=== PATIENT | female | born 1960 | race Caucasian/White ===

== ENCOUNTER 2016-06-10 11:15 | Emergency (ER) | payer OTHER, MEDICAID ==
[2016-04-17 14:51] VITALS: BMI 19.2
[~2016-06-10 11:15] MED LIST: AMBIEN10 MG PO; ASPIRIN325 MG PO; AUGMENTIN 875-11 TAB PO; FERROUS SULFAT325 MG PO; FORTEO PEN20 MCG SQ; HALCION0.25 MG PO; HYDROCODONE-APA1 TAB PO; K-DUR20 MEQ PO; K-TAB10 MEQ PO; LEVAQUIN500 MG PO; MIRALAX17 GM PO; NICODERM C1 PATCH .2 TRANSDERM; NORCO 7.5/325 T1 TA1 PO; OXYCODONE HCL5 MG PO; PRILOSEC20 MG PO; PROTONIX40 MG PO; PROZAC10 MG PO; REMERON15 MG PO; VALIUM10 MG PO; VALIUM5 MG PO; ZANTAC150 MG PO
== END 2016-06-10 14:32 | disposition home or self-care (01) ==
LOC: D.ER 11:15
DX: S80.11XA Contusion of right lower leg, initial encounter (principal); W01.0XXA Fall on same level from slipping, tripping and stumbling without subsequent striking against object, initial encounter; Y93.01 Activity, walking, marching and hiking; Y92.019 Unspecified place in single-family (private) house as the place of occurrence of the external cause; E87.6 Hypokalemia; Z22.322 Carrier or suspected carrier of Methicillin resistant Staphylococcus aureus

== ENCOUNTER 2016-09-07 16:49 | Inpatient (IN) | payer OTHER, MEDICAID ==
[~2016-09-07] VITALS: Ht 162.6 cm; Wt 45.4 kg
[2016-09-07 18:02] LABS: BASOPHILS 0.3 % (0.0-2.0); EOSINOPHILS 1.6 % (0-7); HEMATOCRIT 32.3 % (36.0-48.0); HEMOGLOBIN 10.4 g/dL (12-16); IMMATURE GRANULOCYTES 0.6 % (0-5); LYMPHOCYTES 23.5 % (15-50); MCH 30.6 pg (26.0-34.0); MCHC 32.2 g/dL (31.0-37.0); MEAN PLATELET VOLUME 10.1 fL (7.4-10.4); MONOCYTES 5.4 % (2-11); NEUTROPHILS 68.6 % (40-80); PLATELET COUNT 337 10x3/uL (130-400); RDW 18.2 % (11.5-14.5); WBC 13.2 10x3/uL (4.8-10.8)
[2016-09-07 18:16] LABS: APTT 30.3 SECONDS (22.8-39.4); INR 0.89 (0.85-1.17); PROTIME 11.9 SECONDS (11.6-15.0)
[2016-09-07 18:28] LABS: CARBON DIOXIDE 18.8 mmol/L (21.0-32.0); CHLORIDE - SERUM 109 mmol/L (98-107); CREATININE - SERUM 0.6 mg/dL (0.6-1.3); SODIUM 143 mmol/L (136-145); UREA NITROGEN 4 mg/dL (7-18); eGFR NON AFRICAN AMERICAN > 90 mL/min (90-120)
[2016-09-07 18:38] LABS: CALC OSMOLALITY 279 mosm/kg (275-300); GLUCOSE 69 mg/dL (74-106)
[2016-09-07 18:39] LABS: POTASSIUM - SERUM 2.8 mmol/L (3.5-5.1)
--- NOTE | 2016-09-07 22:24 | NUR ---
ISB FOR PROCEEDURE
--- NOTE | 2016-09-07 22:36 | NUR ---
PRE OP BP 100/70
[2016-09-07 22:44] VITALS: BP 89/64
[2016-09-07 22:45] VITALS: BP 89/64
[2016-09-07 23:00] VITALS: BP 87/55
[2016-09-07 23:15] VITALS: BP 88/52
[2016-09-07 23:30] VITALS: BP 88/52
[2016-09-07 23:35] VITALS: BP 89/64; BMI 17.2
--- NOTE | 2016-09-07 23:35 | NUR ---
ASSESSMENT PER ADMIT PACKET. PATIENT FROM PACU POST OP ORIF LEFT ELBOW FX REPAIN. IV PATENT RT ARM OF LR AT 50CC'S/HR. MONITORING VITAL SIGNS.SR UP X2 CALL LIGHT WITHIN REACH.
[2016-09-08] VITALS (12 sets, daily range): BP systolic 78–113; BP diastolic 50–68; Ht 162.6 cm; Wt 45.4 kg
--- NOTE | 2016-09-08 02:14 | NUR ---
PATIENT IS RESTING COMFORTABLY IN BED. NO DISTRESS NOTED. BP IS RUNNING LOW. IS WANTING SOMETHING FOR PAIN BUT CANNOT KEEP EYES OPEN FOR MORE THAN A MIN BEFORE FALLING BACK TO SLEEP. LAST BP CHECKED WAS 81/55. INTRUCTED TO CALL IF NEEDED ANYTHING. BED LOW, LOCKED, CALL LIGHT IN REACH, ALARM ON.
--- NOTE | 2016-09-08 04:11 | NUR ---
PATIENT STILL RESTING IN BED. BP IS STILL RUNNING 80S/50S, RAISED HER FEET UP TO SEE IF THAT WILL HELP. WILL RECHECK IN 30MINS. BED LOW, LOCKED, CALL LIGHT IN REACH, ALARM ON.
[2016-09-08 04:57] LABS: HEMOGLOBIN 8.9 g/dL (12-16)
--- NOTE | 2016-09-08 05:44 | NUR ---
PATIENT RESTING IN BED COMFORTABLY. BP IS STILL RUNNING LOW. IS WANTING SOMETHING FOR PAIN. TOLD HER I WOULD PASS ON TO THE DAY SHIFT NURSE TO SEE WHAT DOCTOR WANTED TO DO. PATIENT IS STILL VERY SEDATED FROM SURGERY AND CANNOT STAY AWAKE FOR MORE THAN A MIN OR LESS. DENIED FURTHER NEEDS. INTRUCTED TO CALL IF NEEDED ANYTHING.VERBALIZED UNDERSTANDING. BED LOW, LOCKED, CALL LIGHT IN REACH, ALARM ON.
--- NOTE | 2016-09-08 07:37 | NUR ---
CALLED RENAN, NURSE PRACTICTIONER WITH . NOTIFIED HER OF PATIENT'S BP. SHE STATED "GIVE A 500ML BOLUS OF NORMAL SALINE."
[2016-09-08 08:45] LABS: CALCIUM 7.3 mg/dL (8.5-10.1); CARBON DIOXIDE 23.5 mmol/L (21.0-32.0); CHLORIDE - SERUM 110 mmol/L (98-107); CREATININE - SERUM 0.6 mg/dL (0.6-1.3); SODIUM 140 mmol/L (136-145); UREA NITROGEN 3 mg/dL (7-18); eGFR NON AFRICAN AMERICAN > 90 mL/min (90-120)
[2016-09-08 08:53] LABS: CALC OSMOLALITY 276 mosm/kg (275-300); GLUCOSE 122 mg/dL (74-106); POTASSIUM - SERUM 3.5 mmol/L (3.5-5.1)
--- NOTE | 2016-09-08 13:12 | NUR ---
Patient Name: WILLIAM BRYANT Admission Status: ER Accout number: [id number] Admission Date: 09-07-2016 : 1960 Admission Diagnosis: Attending: SULY Current LOS: 1 Anticipated DC Date: 09-10-2016 Planned Disposition: Home with Home Health Primary Insurance: Discharge Planning Comments: CM MET WITH PATIENT REGARDIND D/C NEEDS AND PLANS. PATIENT STATED SHE LIVES ALONE AND HAS NO STEPS OR STAIRS AT HER HOME. PATIENT STATED HER MOTHER (MARILYN) WILL DRIVE HER HOME AT DISCHARGE. PATIENT IS INDEPENDENT WITH HER CARE AND HAS A WALKER, AND CANE AT HOME. PATIENTS PCP IS DR. ROPER AND PHARMACY IS [facility]. PATIENT IS CURRENT WITH [facility] AND HAS AN AIDE 5 DAYS A WEEK FOR 3 HRS. A DAY. CM WILL CONTINUE TO FOLLOW PATIENT WITH D/C NEEDS AND PLANS. PCP DR[facility] [phone] MARILYN ABDI (MOM) [phone] Sas Clinical Programmer: Dorothy Muir Is the patient Alert and Oriented? Yes 0 * How many steps to enter\exit or inside your home? 0 0 * PCP DR. ROPER 0 * Pharmacy [facility] 0 * Preadmission Environment Home Alone 0 * ADLs Independent 0 * Equipment Cane Walker 0 * List name and contact numbers for known caregivers / representatives who currently or will assist patient after discharge: MARILYN ABDI 0 * Community resources currently utilized Other 0 * Please name any agencies selected above. [facility] AIDE/5DAYS/3HRS DAY 0 * Additional services required to return to the preadmission environment? Yes 0 * Can the patient safely return to the preadmission environment? Yes 0 * Has this patient been hospitalized within the prior 30 days at any hospital? No 0 Grand Total: 0
[2016-09-09] VITALS: BP 96/66
[2016-09-09 04:00] VITALS: BP 103/73
[2016-09-09 06:31] LABS: HEMATOCRIT 29.1 % (36.0-48.0); HEMOGLOBIN 9.4 g/dL (12-16)
--- NOTE | 2016-09-09 08:05 | NUR ---
WALKING ROUNDS.ASSESMENT PER FLOW SHEET.PT WITHOUT DISTRESS.SHE IS VERY DROWSY AND CONFUSED THIS AM.SHE ASK ME IF SHE HAS EATEN BREAKFAST YET.PAIN CONTROLLED WITH CORK COMPOUNDER.REPOSITIONED WITH ASSIST OF JESSICA FOR NEEDS
[2016-09-09 08:59] VITALS: BP 121/77
--- NOTE | 2016-09-09 10:32 | NUR ---
SITTING UP IN CHAIR. USING INCENTIVE SPIROMETRY AND ABLE TO GET TO 2000 X 2.
--- NOTE | 2016-09-09 11:22 | NUR ---
STILL UP IN CHAIR PER PT.REMAINS VERY DROWSY.PT REQUEST VALIUM ORDERED,BUT SHE DOES NOT HOLD HER EYES OPEN FOR VERY LONG PERIODS.MONITOR FOR NEEDS
[2016-09-09 13:09] VITALS: BP 102/72
--- NOTE | 2016-09-09 14:48 | NUR ---
WAS STILL EATING LUNCH VERY SLOWLY.STILL SOME WHAT SEDATED.MONITOR FOR NEEDS.
--- NOTE | 2016-09-09 16:08 | NUR ---
HAS BEEN AWAKE FOR A WHILE NOW.WISHES TO HAVE BREAKTHROUGH PAIN MED,BUT AFTER REPOSITIONING SHE DOZES BACK TO SLEEP.MONITOR FOR SIGNS OF DISCOMFORT
[2016-09-09 17:30] VITALS: BP 97/61
[2016-09-09 19:00] VITALS: BP 88/62
--- NOTE | 2016-09-09 19:58 | NUR ---
BROUGHT PATIENT FRESH ICE PER HER REQUEST AND RECHECKED BP. PATIENT DENIES OTHER NEEDS AT THIS TIME. BED IN LOWEST POSITION AND CALL LIGHT WITHIN REACH. ENCOURAGED PATIENT TO CALL IF SHE HAS FURTHER NEEDS.
[2016-09-10 04:00] VITALS: BP 88/62
[2016-09-10 06:23] LABS: HEMATOCRIT 26.4 % (36.0-48.0); HEMOGLOBIN 8.3 g/dL (12-16)
[2016-09-10 08:00] VITALS: BP 92/58
--- NOTE | 2016-09-10 08:00 | NUR ---
PT ASSESSMENT COMPLETE AWAKE AND ALERT SURGICAL DRESSING INTACT TO LEFT ARM HAS LARGE SCALE BRUISING NOTED TO LEFT HIP AND THIGH HAS PAINFUL DORSAL FLEXION NOTED ON ASSESSMENT TO LEFT FOOT WILL ASK PREBOARDER ABOUT XRAY
[2016-09-10 10:49] LABS: BASOPHILS 0 % (0.0-2.0); EOSINOPHILS 0.8 % (0-7); IMMATURE GRANULOCYTES 0.7 % (0-5); MCHC 31.1 g/dL (31.0-37.0); MCV 99.6 fL (80.0-100.0); MEAN PLATELET VOLUME 10.1 fL (7.4-10.4); NEUTROPHILS 51.5 % (40-80); PLATELET COUNT 273 10x3/uL (130-400); RBC 2.68 10x6/uL (4.00-5.40); WBC 8.6 10x3/uL (4.8-10.8)
[2016-09-10 10:59] LABS: ALKALINE PHOSPHATASE 116 U/L (46-116); ALT (SGPT) 15 U/L (10-68); BILIRUBIN - TOTAL 0.17 mg/dL (0.2-1.3); CALC OSMOLALITY 273 mosm/kg (275-300); CALCIUM 7.7 mg/dL (8.5-10.1); CARBON DIOXIDE 25.6 mmol/L (21.0-32.0); CHLORIDE - SERUM 106 mmol/L (98-107); CREATININE - SERUM 0.5 mg/dL (0.6-1.3); GLUCOSE 88 mg/dL (74-106); POTASSIUM - SERUM 3.3 mmol/L (3.5-5.1); PROTEIN - SERUM 5.3 g/dL (6.4-8.2); SODIUM 139 mmol/L (136-145); UREA NITROGEN 4 mg/dL (7-18); eGFR NON AFRICAN AMERICAN > 90 mL/min (90-120)
--- NOTE | 2016-09-10 11:23 | NUR ---
CM REASSESSMENT NOTE: REFERRAL TO [facility] / JORGE FROM [facility] COMING TO EVAL PATIENT TODAY.
[2016-09-10 12:00] VITALS: BP 80/42
--- NOTE | 2016-09-10 14:26 | OP ---
PATIENT NAME: WILLIAM BRYANT MEDICAL RECORD: [id number] :[birth year] LOCATION:D.MS Phillips2226 ADMISSION DATE:09/07/16 SURGEON: FELIPE CAPONE MD DATE OF OPERATION: 09/07/2016 Orthopedic Surgery Operative Note PREOPERATIVE DIAGNOSIS: Comminuted distal humerus supracondylar fracture of the left arm. POSTOPERATIVE DIAGNOSIS: Comminuted distal humerus supracondylar fracture of the left arm. PROCEDURE: Open reduction internal fixation of the left humerus by olecranon osteotomy. SURGEON: Felipe Capone MD. ANESTHESIA: General. INTRAOPERATIVE COMPLICATIONS: None. SUMMARY OF PATHOLOGIC FINDINGS: The patient had a supracondylar fracture with a split on the lateral aspect of the trochlea, requiring 2 column and transcondylar fixation. OPERATIVE SUMMARY IN DETAIL: After obtaining the appropriate preoperative orthopedic surgery consent as well as anesthetic consultation, evaluation and clearance, the patient was brought to the operating room and placed on the operating table in supine position. After general laryngeal mask airway was administered, the patient was placed in a right lateral decubitus position. All pressure points were well padded. She was held firmly to the operating table using the vacuum pack suction system. With the left upper extremity, she was prepped and draped in a routine sterile fashion and draped over the radiolucent elbow holding board. Posterior approach was created from proximal to the olecranon tip to distal olecranon tip. Dissection was carried down. Immediately, the ulnar nerve was identified and protected with a red vessel loop and protected in this manner throughout the entire case. Olecranon osteotomy was performed. The triceps was then reflected back, so the entire distal humerus could be seen. The transcondylar fracture and lateral condyle fracture were provisionally pinned with the cannulated guide pins and then compression cannulated screws were placed across the transcondylar fracture and into the lateral column. This gave good stable rigid fixation of the lateral column and transcondylar portion of the fracture. The medial side was more comminuted and the straight medial based trauma plate from the [employer] system was then affixed and the medial column was fixed. The comminution required additional fixation with lag screw technique. At this point, radiographs were taken and showed good fixation. The olecranon was then reapproximated back across the osteotomy. Using a 4.0 double compression screw, this patient had a very small diaphyseal shaft of the ulna, so I did not feel like a larger 6.5 screw would be appropriate for this person with known osteopenia. After the construction was completed, final radiographs were taken in both AP and lateral planes and submitted for radiographic review. The wound was copiously irrigated. The medial and lateral triceps fascia were closed with #1 Vicryl. This was followed by #1 Vicryl, 2-0 Vicryl and skin ziggy for final closure. Sterile dressings OPERATIVE REPORT [id number] WILLIAM BRYANT were applied. The patient was placed in a posterior splint. She was then awoken, taken to recovery room in stable condition. All final needle and sponge counts were correct. TRANSINT:[id number] Voice Confirmation ID: [id number] DOCUMENT ID: [id number] ESTELITA NG, FELIPE HADDAD at 1426 CC: [id number] DICTATION DATE: 09/10/16910 APPOINTMENT SCHEDULER: 09/10/16 1138 ADM IN [facility] [address] [place] [address]
--- NOTE | 2016-09-10 14:32 | NUR ---
PROVIDED PT WITH ICE PACKS AND CUP OF ICE PER HER REQUEST. INSPECTOR BALANCE BRIDGE IN USE FOR PAIN CONTROL. CALL LIGHT IN REACH. DENIES NEEDS AT THIS TIME. WILL CONTINUE WITH PLAN OF CARE.
--- NOTE | 2016-09-10 14:52 | NUR ---
PT TO DISCHARGE TO [facility] TODAY SURGICAL DRESSING IN PLACE. XRAY OF LEFT IP AND PELVIS DONE DR PEREZ REVIEWED AND AGREES WITH DISCHARGE.
--- NOTE | 2016-09-10 18:12 | NUR ---
PT DISCHARGED TO [facility] AT THIS TIME VIA WHEELCHAIR WITH FACILITY [facility].
== END 2016-09-10 18:13 | DRG 493 ==
LOC: D.ER 16:49 → D.MS 19:15
PROVIDERS: Nurse Practitioner Acute Care; ADMIT Orthopaedic Surgery
PROC: 0PSG04Z Reposition Left Humeral Shaft with Internal Fixation Device, Open Approach (ICD-10-PCS; principal; 2016-09-07 19:07)
DX: S42.412A Displaced simple supracondylar fracture without intercondylar fracture of left humerus, initial encounter for closed fracture (principal); S52.502A Unspecified fracture of the lower end of left radius, initial encounter for closed fracture; S52.612A Displaced fracture of left ulna styloid process, initial encounter for closed fracture; D62 Acute posthemorrhagic anemia; W01.0XXA Fall on same level from slipping, tripping and stumbling without subsequent striking against object, initial encounter; F41.8 Other specified anxiety disorders; I95.9 Hypotension, unspecified; Z86.73 Personal history of transient ischemic attack (TIA), and cerebral infarction without residual deficits; M25.552 Pain in left hip

== ENCOUNTER 2016-09-28 10:16 | Day surgery (SDC) | payer OTHER, MEDICAID ==
[2016-09-28] MEDS ORDERED: PROLIA INJ 660 MG/M1 IJ (11:34)
[2016-09-28 12:51] LABS: HEMATOCRIT 35.2 % (36.0-48.0); HEMOGLOBIN 11.2 g/dL (12-16); MCH 31.2 pg (26.0-34.0); MCHC 31.8 g/dL (31.0-37.0); MCV 98.1 fL (80.0-100.0); MEAN PLATELET VOLUME 10.9 fL (7.4-10.4); RBC 3.59 10x6/uL (4.00-5.40); RDW 14.7 % (11.5-14.5); WBC 7.6 10x3/uL (4.8-10.8)
== END 2016-09-28 18:10 | disposition home or self-care (01) ==
LOC: D.OPS 10:16
PROVIDERS: Anesthesiology
DX: S42.422 Displaced comminuted supracondylar fracture without intercondylar fracture of left humerus (principal); K21.9 Gastro-esophageal reflux disease without esophagitis; Z01.812 Encounter for preprocedural laboratory examination; M87.9 Osteonecrosis, unspecified

== ENCOUNTER 2016-11-02 07:24 | Emergency (ER) | payer OTHER, MEDICAID ==
[2016-09-28 11:29] VITALS: BMI 17.2
[~2016-11-02 07:24] MED LIST changes: +PROLIA INJ 660 MG/M1 IJ
== END 2016-11-02 09:00 | disposition home or self-care (01) ==
LOC: D.ER 07:24
DX: S53.402A Unspecified sprain of left elbow, initial encounter (principal); W06.XXXA Fall from bed, initial encounter; Y93.89 Activity, other specified; Y92.89 Other specified places as the place of occurrence of the external cause; E87.6 Hypokalemia

== ENCOUNTER 2016-11-04 09:10 | Emergency (ER) | payer OTHER, MEDICAID ==
[2016-09-28 11:29] VITALS: BMI 17.2
== END 2016-11-04 09:44 | disposition home or self-care (01) ==
LOC: D.ER 09:10
DX: Z76.0 Encounter for issue of repeat prescription (principal)

== ENCOUNTER 2016-11-14 10:26 | Emergency (ER) | payer OTHER, MEDICAID ==
[2016-09-28 11:29] VITALS: BMI 17.2
[2016-11-18] MEDS ORDERED: FORTEO PEN20 MCG SQ (11:44)
== END 2016-11-14 12:29 | disposition home or self-care (01) ==
LOC: D.ER 10:26
DX: M25.512 Pain in left shoulder (principal); S42.295A Other nondisplaced fracture of upper end of left humerus, initial encounter for closed fracture; W18.39XA Other fall on same level, initial encounter

== ENCOUNTER 2016-11-19 09:51 | Inpatient (IN) | payer OTHER, MEDICAID ==
[~2016-11-19] VITALS: Ht 162.6 cm; Wt 43.1 kg
[2016-11-19 10:44] VITALS: BMI 16.3
[2016-11-19 10:52] LABS: BASOPHILS 0.1 % (0-2); EOSINOPHILS 0.5 % (0-7); HEMATOCRIT 37.8 % (36.0-48.0); HEMOGLOBIN 12.6 g/dL (12-16); IMMATURE GRANULOCYTES 0.4 % (0-5); LYMPHOCYTES 16.5 % (15-50); MCH 29.8 pg (26.0-34.0); MCHC 33.3 g/dL (31.0-37.0); MCV 89.4 fL (80.0-100.0); MEAN PLATELET VOLUME 10.2 fL (7.4-10.4); MONOCYTES 5.7 % (2-11); NEUTROPHILS 76.8 % (40-80); RBC 4.23 10x6/uL (4.00-5.40); RDW 15.1 % (11.5-14.5); WBC 13.5 10x3/uL (4.8-10.8)
[2016-11-19 10:54] LABS: PLATELET COUNT 421 10x3/uL (130-400)
[2016-11-19 11:02] LABS: INR 0.99 (0.85-1.17)
[2016-11-19 11:03] LABS: APTT 31.5 SECONDS (22.8-39.4)
[2016-11-19 11:05] LABS: CALC OSMOLALITY 273 mosm/kg (275-300); CALCIUM 8.4 mg/dL (8.5-10.1); CARBON DIOXIDE 22.6 mmol/L (21.0-32.0); CHLORIDE - SERUM 103 mmol/L (98-107); CREATININE - SERUM 0.6 mg/dL (0.6-1.3); GLUCOSE 109 mg/dL (74-106); SODIUM 138 mmol/L (136-145); UREA NITROGEN 3 mg/dL (7-18); eGFR NON AFRICAN AMERICAN > 90 mL/min (90-120)
[2016-11-19 11:13] LABS: POTASSIUM - SERUM 1.9 mmol/L (3.5-5.1)
[2016-11-19 11:18] LABS: APPEARANCE HAZY (CLEAR); BILIRUBIN NEGATIVE (NEGATIVE); COLOR YELLOW (YELLOW); GLUCOSE NEGATIVE (NEGATIVE); KETONE NEGATIVE (NEGATIVE); LEUKOCYTE ESTERASE TRACE (NEGATIVE); NITRITE NEGATIVE (NEGATIVE); PROTEIN NEGATIVE (NEGATIVE); UROBILINOGEN NORMAL (NORMAL)
[2016-11-19 11:21] LABS: BACTERIA FEW /hpf (NONE SEEN); MUCUS >1+ /lpf (NONE SEEN); RED CELLS - URINE OCC /hpf (0-5); WHITE CELLS - URINE 0-5 /hpf (0-5)
--- NOTE | 2016-11-19 11:21 | NUR ---
ALMA ROSA ERVIN R.N. REPORTED TO GIANNI YOUNGBLOOD POTASSIUM 1.9 ALSO 13.5 WBC AND 421 PLATELETS.
--- NOTE | 2016-11-19 13:03 | NUR ---
1200 PAIN A 5,BETTER. DR. DOCKERY CXD SURGERY AND EXPLAINED TO FAMILY AND PATIENT. WILL TREAT POTASSIUM AND ADMIT.
[2016-11-19 14:38] VITALS: BP 94/61
[2016-11-19 15:30] VITALS: BMI 16.3
--- NOTE | 2016-11-19 17:45 | NUR ---
1230 REPORT TO SHIRA Guerra PROCEDURE CXD DUE TO HYPOKALEMIA AND NEEDS TO LOOK FOR ORDER AND FEED PATIENT,VERBALLY UNDERSTANDS.
[2016-11-19 19:00] VITALS: BP 103/70
[2016-11-20] VITALS: BP 104/70
--- NOTE | 2016-11-20 00:30 | NUR ---
AMBIEN GIVEN FOR SLEEP PER ORDER.
[2016-11-20 04:00] VITALS: BP 117/74
--- NOTE | 2016-11-20 04:41 | NUR ---
PATIENT IN BED WATCHING TV. HOB 50 DEGREES. AAOX4. RR EVEN AND UNLABORED. 0 S/S OF DISTRESS. STATES PAIN IS A 5/10. IV TO RIGHT FA PATENT WITH NO REDNESS OR SWELLING. TELEMETRY ON. SRX2. BED LOW. CALL LIGHT WITHIN REACH.
--- NOTE | 2016-11-20 04:47 | NUR ---
OXY IR GIVEN FOR PAIN. WILL REASSESS.
[2016-11-20 05:37] LABS: BASOPHILS 0.2 % (0-2); HEMATOCRIT 34.6 % (36.0-48.0); HEMOGLOBIN 11.6 g/dL (12-16); IMMATURE GRANULOCYTES 0.2 % (0-5); LYMPHOCYTES 17.3 % (15-50); MCH 29.9 pg (26.0-34.0); MCHC 33.5 g/dL (31.0-37.0); MCV 89.2 fL (80.0-100.0); MONOCYTES 5.4 % (2-11); NEUTROPHILS 75.9 % (40-80); PLATELET COUNT 392 10x3/uL (130-400); RBC 3.88 10x6/uL (4.00-5.40); RDW 15.3 % (11.5-14.5); WBC 12.8 10x3/uL (4.8-10.8)
[2016-11-20 05:45] LABS: CALC OSMOLALITY 274 mosm/kg (275-300); CALCIUM 7.4 mg/dL (8.5-10.1); CARBON DIOXIDE 23.1 mmol/L (21.0-32.0); CHLORIDE - SERUM 103 mmol/L (98-107); CREATININE - SERUM 0.6 mg/dL (0.6-1.3); GLUCOSE 135 mg/dL (74-106); SODIUM 138 mmol/L (136-145); UREA NITROGEN 3 mg/dL (7-18); eGFR NON AFRICAN AMERICAN > 90 mL/min (90-120)
[2016-11-20 05:58] LABS: POTASSIUM - SERUM 2.4 mmol/L (3.5-5.1)
--- NOTE | 2016-11-20 07:30 | NUR ---
SLEEPING, BREATHING EVEN UNLABORED, CALL LIGHT INREACH, BED LOWEST POSTION, WILL CONTINUE TO MONITOR
[2016-11-20 07:36] VITALS: BP 101/68
[2016-11-20 12:09] VITALS: BP 106/72
[2016-11-20 12:16] VITALS: Ht 162.6 cm; Wt 43.1 kg
[2016-11-20 13:56] LABS: BASOPHILS 0.4 % (0-2); EOSINOPHILS 1.6 % (0-7); HEMATOCRIT 40.2 % (36.0-48.0); HEMOGLOBIN 13.1 g/dL (12-16); IMMATURE GRANULOCYTES 0.3 % (0-5); LYMPHOCYTES 32.2 % (15-50); MCH 29.8 pg (26.0-34.0); MCHC 32.6 g/dL (31.0-37.0); MEAN PLATELET VOLUME 10.3 fL (7.4-10.4); NEUTROPHILS 58.5 % (40-80); PLATELET COUNT 401 10x3/uL (130-400); RBC 4.39 10x6/uL (4.00-5.40); RDW 15.5 % (11.5-14.5); WBC 10.9 10x3/uL (4.8-10.8)
[2016-11-20 13:59] LABS: MCV 91.6 fL (80.0-100.0)
[2016-11-20 20:00] VITALS: BP 93/69
[2016-11-21 00:11] VITALS: BP 95/63
[2016-11-21 04:00] VITALS: BP 86/57
[2016-11-21 04:56] LABS: BASOPHILS 0 % (0-2); EOSINOPHILS 0 % (0-7); HEMATOCRIT 33.7 % (36.0-48.0); IMMATURE GRANULOCYTES 0.2 % (0-5); LYMPHOCYTES 6.4 % (15-50); MCH 29.6 pg (26.0-34.0); MCHC 32.6 g/dL (31.0-37.0); MCV 90.8 fL (80.0-100.0); MEAN PLATELET VOLUME 9.9 fL (7.4-10.4); MONOCYTES 3.9 % (2-11); NEUTROPHILS 89.5 % (40-80); PLATELET COUNT 400 10x3/uL (130-400); RBC 3.71 10x6/uL (4.00-5.40); RDW 15.5 % (11.5-14.5)
[2016-11-21 05:14] LABS: ALBUMIN 2.1 g/dL (3.4-5.0); ALKALINE PHOSPHATASE 138 U/L (46-116); ALT (SGPT) 18 U/L (10-68); BILIRUBIN - TOTAL 0.18 mg/dL (0.2-1.3); CALC OSMOLALITY 268 mosm/kg (275-300); CHLORIDE - SERUM 101 mmol/L (98-107); CREATININE - SERUM 0.6 mg/dL (0.6-1.3); GLUCOSE 172 mg/dL (74-106); POTASSIUM - SERUM 3.1 mmol/L (3.5-5.1); PROTEIN - SERUM 5.8 g/dL (6.4-8.2); SODIUM 134 mmol/L (136-145); UREA NITROGEN 3 mg/dL (7-18); eGFR NON AFRICAN AMERICAN > 90 mL/min (90-120)
--- NOTE | 2016-11-21 06:15 | NUR ---
WENT TO HANG IV ANTIBIOTIC AND PT'S RT. AC PERIPHERAL IV SITE WET. IV HAS INFILTRATED. D/C'D IV WITH ANGIOCATH TIP INTACT. PRESSURE HELD AND BANDAID APPLIED. PT. REPORTS SHE DIDN'T WANT RESITED IV AT THIS TIME CAUSE SHE THINKS SHE IS GOING HOME AND MD WOULD PUT HER ON ORAL MEDS TODAY. PT. WANTS TO WAIT UNTIL MD ROUNDS FIRST.
--- NOTE | 2016-11-21 06:46 | NUR ---
PT. IN BED WITH HOB UP FOR COMFORT AND IS WATCHING TV. NO VOICED NEEDS AT THIS TIME. IV INFUSING VIA RT. HAND NS/20KCL AT 100/HR VIA PUMP WITHOUT ALARMS. CALL LIGHT WITHIN REACH.
--- NOTE | 2016-11-21 07:20 | NUR ---
ASSESSMENT COMPLETE. IV TO R HAND PATENT. NS WITH 20 KCL INFUSING AT 100 CC/HR VIA PUMP. SLING IN USE TO L ARM. DRESSING TO L SHOULDER C/D/I. GARAGE DOOR SERVICE TECHNICIAN SHOWING SR 96 PER TECH.
[2016-11-21 08:59] VITALS: BP 102/79
--- NOTE | 2016-11-21 11:15 | NUR ---
COMPLAINING OF OXY IR AND MORPHINE NOT BEING EFFECTIVE FOR PAIN CONTROL. DR CAPONE NOTIFIED. ORDER RECIEVED FOR RUBY DEVELOPER. RUBY DEVELOPER DILAUDID 0.2-10-4 SETUP FOR PAIN CONTROL. FAMILY AT BEDSIDE.
[2016-11-21 13:13] VITALS: BP 116/76
--- NOTE | 2016-11-21 15:00 | NUR ---
NO CHANGES NOTED. CONTINUES TO COMPLAIN OF PAIN. STATES THAT ICEPACK HELPS WITH PAIN. FAMILY AT BEDSIDE.
--- NOTE | 2016-11-21 17:23 | NUR ---
DENIES ANY NEEDS AT PRESENT.
[2016-11-21 17:43] VITALS: BP 106/73
[2016-11-21 20:00] VITALS: BP 97/65
--- NOTE | 2016-11-21 20:52 | NUR ---
REC'D IN BED AWAKE AND ALERT. RESP EVEN AND UNLABORED WITH NO DISTRESS NOTED. CAN EXPRESS NEEDS AND WANTS. PT WAS IN TEARS AT THIS TIME RATING PAIN 10/10 ON PAIN SCALE. BOLUS OF DILAUDID WAS GIVEN ALONG WITH OXY IR PER ORDERS. ASSESSMENT COMPLETED. LEFT SHOULDER IN SLING. WILL CONTINUE TO OBSERVE FOR NEEDS. C/L IN REWACH AT BEDSIDE.
[2016-11-22] VITALS: BP 89/61
[2016-11-22 04:00] VITALS: BP 109/75
--- NOTE | 2016-11-22 04:34 | NUR ---
NATALIO OSULLIVAN AT BEDSIDE. NO VISIBLE SIGNS OF DISTRESS. BED IN LOWEST POSITION AND CALL LIGHT WITHIN REACH.
[2016-11-22 07:13] LABS: BASOPHILS 0.2 % (0-2); EOSINOPHILS 0.5 % (0-7); HEMOGLOBIN 10.9 g/dL (12-16); IMMATURE GRANULOCYTES 0.2 % (0-5); LYMPHOCYTES 28.3 % (15-50); MCH 29.3 pg (26.0-34.0); MCHC 32.1 g/dL (31.0-37.0); MCV 91.4 fL (80.0-100.0); MEAN PLATELET VOLUME 9.8 fL (7.4-10.4); MONOCYTES 9.1 % (2-11); NEUTROPHILS 61.7 % (40-80); PLATELET COUNT 378 10x3/uL (130-400); RBC 3.72 10x6/uL (4.00-5.40); RDW 15.6 % (11.5-14.5); WBC 10.6 10x3/uL (4.8-10.8)
--- NOTE | 2016-11-22 07:20 | NUR ---
ASSESSMENT COMPLETE. IV TO R HAND WITH TENDERNESS. IV REMOVED. CATHETER TIP INTACT. IV SITED TO R FA WITH 22 GAUGE X 1 ATTEMPT. SOFTWARE ENGINEERING SUPERVISOR SHOWING SR 100 PER TECH. DRESSING INTACT TO L ARM. BRUISING AND SWELLING NOTED TO L ARM. L ARM COOL TO TOUCH WITH PULSES PRESENT. INVESTIGATION DIVISION CAPTAIN DILAUDID 0.1-10-4 IN USE FOR PAIN CONTROL.
[2016-11-22 07:27] LABS: ALBUMIN 2.1 g/dL (3.4-5.0); ALKALINE PHOSPHATASE 137 U/L (46-116); ALT (SGPT) 16 U/L (10-68); BILIRUBIN - TOTAL 0.28 mg/dL (0.2-1.3); CALCIUM 7.9 mg/dL (8.5-10.1); CARBON DIOXIDE 26.8 mmol/L (21.0-32.0); CHLORIDE - SERUM 101 mmol/L (98-107); PROTEIN - SERUM 5.7 g/dL (6.4-8.2); SODIUM 135 mmol/L (136-145)
[2016-11-22 07:32] LABS: CALC OSMOLALITY 264 mosm/kg (275-300); CREATININE - SERUM 0.4 mg/dL (0.6-1.3); GLUCOSE 64 mg/dL (74-106); UREA NITROGEN 4 mg/dL (7-18); eGFR NON AFRICAN AMERICAN > 90 mL/min (90-120)
[2016-11-22 09:02] VITALS: BP 105/66
--- NOTE | 2016-11-22 11:00 | NUR ---
NO CHANGES NOTED AT PRESENT.
[2016-11-22 12:44] VITALS: BP 101/70
--- NOTE | 2016-11-22 13:00 | NUR ---
CONTINUES TO COMPLAIN OF PAIN. SLING APPLIED TO L ARM. ICEPACK APPLIED TO L SHOULDER.
[2016-11-22 17:19] VITALS: BP 112/85
--- NOTE | 2016-11-22 18:34 | NUR ---
DENIES ANY NEEDS AT PRESENT.
[2016-11-22 20:00] VITALS: BP 101/62
--- NOTE | 2016-11-22 20:16 | NUR ---
PATIENT RESTING IN BED WITH NO VISIBLE SIGNS OF DISTRESS. ADMINISTERED TORADOL PER ORDERS AND REFILLED PATIENT'S ICE PACKS. PATIENT DENIES OTHER NEEDS AT THIS TIME. BED IN LOWEST POSITION AND CALL LIGHT WITHIN REACH. ENCOURAGED THE PATIENT TO CALL IF SHE HAS FURTHER NEEDS.
[2016-11-23] VITALS: BP 92/42
[2016-11-23 04:00] VITALS: BP 102/53
[2016-11-23 06:42] LABS: BASOPHILS 0.2 % (0-2); EOSINOPHILS 1.9 % (0-7); HEMATOCRIT 31.4 % (36.0-48.0); IMMATURE GRANULOCYTES 0.4 % (0-5); LYMPHOCYTES 25.9 % (15-50); MCH 29.2 pg (26.0-34.0); MCHC 31.8 g/dL (31.0-37.0); MCV 91.5 fL (80.0-100.0); MEAN PLATELET VOLUME 9.6 fL (7.4-10.4); MONOCYTES 8.3 % (2-11); NEUTROPHILS 63.3 % (40-80); PLATELET COUNT 356 10x3/uL (130-400); RBC 3.43 10x6/uL (4.00-5.40); RDW 15.7 % (11.5-14.5); WBC 8.3 10x3/uL (4.8-10.8)
[2016-11-23 07:04] LABS: ALBUMIN 1.9 g/dL (3.4-5.0); ALKALINE PHOSPHATASE 135 U/L (46-116); ALT (SGPT) 15 U/L (10-68); BILIRUBIN - TOTAL 0.21 mg/dL (0.2-1.3); CALC OSMOLALITY 264 mosm/kg (275-300); CALCIUM 7.5 mg/dL (8.5-10.1); CARBON DIOXIDE 25.5 mmol/L (21.0-32.0); CHLORIDE - SERUM 100 mmol/L (98-107); CREATININE - SERUM 0.4 mg/dL (0.6-1.3); GLUCOSE 89 mg/dL (74-106); POTASSIUM - SERUM 4.2 mmol/L (3.5-5.1); PROTEIN - SERUM 5.5 g/dL (6.4-8.2); SODIUM 134 mmol/L (136-145); UREA NITROGEN 6 mg/dL (7-18); eGFR NON AFRICAN AMERICAN > 90 mL/min (90-120)
--- NOTE | 2016-11-23 07:30 | NUR ---
RECIEVED PT DURING WALKING ROUNDS. PT SITTING UP IN BED WITH COMPLAINTS OF PAIN OF A 10 ON A SCALE OF 1-10. MEDICATION TO BE GIVEN PER ORDER. ASSESSMENT DONE PER FLOWSHEET. BED IN LOW POSITION AND CALL LIGHT WITHIN REACH. WILL CONTINUE TO MONITOR.
[2016-11-23 08:26] VITALS: BP 99/52
[2016-11-23] MEDS ORDERED: OXYCODONE HCL5 MG PO (12:19)
[2016-11-23] MEDS ORDERED: OxyCONTIN PO (12:20)
[2016-11-23 12:26] VITALS: BP 103/53
--- NOTE | 2016-11-23 12:44 | NUR ---
Patient Name: WILLIAM BRYANT Admission Status: Elective Accout number: [id number] Admission Date: 11-19-2016 : 1960 Admission Diagnosis:HYPOKALEMIA Attending: SULY Current LOS: 4 Anticipated DC Date: 11-23-2016 Planned Disposition: Home with Home Health Primary Insurance: [employer] Discharge Planning Comments: CM MET WITH PATIENT AND MOM (MARILYN) REGARDING D/C NEEDS AND PLANS. PATIENT STATED SHE WILL GO HOME WITH HER MOM AT DISCHARGE FOR A DAY. PATIENTS MOTHER IS DRIVING HER. PATIENT STATED SHE HAS CARE GIVERS 7 DAYS A WEEK FOR 4 HOURS A DAY. PATIENT IS CURRENT WITH [facility]. PATIENT IS INDEPENDENT WITH HER CARE AND HAS A ROLATOR WALKER, AND SHOWER CHAIR AT HOME. PATIENTS PCP IS DR. ROPER AND PHARMACY IS [facility]. CM WILL CONTINUE TO FOLLOW PATIENT WITH D/C NEEDS AND PLANS. PCP DR[facility]- [phone] MARILYN (MOM) [phone] Life Science Taxonomist: Dorothy Muir Is the patient Alert and Oriented? Yes 0 * How many steps to enter\exit or inside your home? 0 0 * PCP DR. ROPER 0 * Pharmacy [facility] 0 * Preadmission Environment Home Alone 0 * ADLs Independent 0 * Equipment Rolling Walker Shower Chair 0 * List name and contact numbers for known caregivers / representatives who currently or will assist patient after discharge: MARILYN (MOM) [phone] 0 * Additional services required to return to the preadmission environment? Yes 0 * Can the patient safely return to the preadmission environment? Yes 0 * Has this patient been hospitalized within the prior 30 days at any hospital? No 0 Grand Total: 0
--- NOTE | 2016-11-23 12:50 | NUR ---
CM REASSESSMENT NOTE: JEFF IS DISCHARGING HOME TODAY W/HER MOTHER DRIVING HER. PATIENT HAS A ROLATOR WALKER AND SHOWER CHAIR AT HOME. PATIENT WILL HAVE [facility] (RESUMPTION OF CARE) W/PT. WILLEM AWARE OF DISCHARGE.
--- NOTE | 2016-11-23 14:53 | NUR ---
DRESSING CHANGED TO LEFT SHOULDER AT THIS TIME. IV REMOVED AND DISCHARGE INSTRUCTIONS GIVEN. PT DISCHARGED VIA WHEELCHAIR TO HOME WITH A FAMILY MEMBER.
== END 2016-11-23 15:03 | disposition home health service (06) | DRG 982 ==
LOC: D.MS 09:51 → D.OPS 09:51 → D.PAN 12:30 → D.MS 14:36 → D.OPS 14:37 → D.MS 11-23 15:03
PROVIDERS: Anesthesiology; Family Medicine Adult Medicine; ADMIT Orthopaedic Surgery
PROC: 0RRK0J6 Replacement of Left Shoulder Joint with Synthetic Substitute, Humeral Surface, Open Approach (ICD-10-PCS; principal; 2016-11-20 13:00)
DX: E87.6 Hypokalemia (principal); N39.0 Urinary tract infection, site not specified; K59.00 Constipation, unspecified; F41.8 Other specified anxiety disorders; G89.29 Other chronic pain; Z86.73 Personal history of transient ischemic attack (TIA), and cerebral infarction without residual deficits; F17.200 Nicotine dependence, unspecified, uncomplicated; M19.012 Primary osteoarthritis, left shoulder; S42.402D Unspecified fracture of lower end of left humerus, subsequent encounter for fracture with routine healing; X58.XXXD Exposure to other specified factors, subsequent encounter; I95.9 Hypotension, unspecified

== ENCOUNTER 2017-01-16 07:15 | Emergency (ER) | payer OTHER, MEDICAID ==
[2016-11-20 12:16] VITALS: BMI 16.3
[~2017-01-16 07:15] MED LIST changes: +OxyCONTIN PO
== END 2017-01-16 08:37 | disposition home or self-care (01) ==
LOC: D.ER 07:15
DX: S29.9XXA Unspecified injury of thorax, initial encounter (principal); W19.XXXA Unspecified fall, initial encounter; Y93.89 Activity, other specified; Y92.89 Other specified places as the place of occurrence of the external cause; S59.902A Unspecified injury of left elbow, initial encounter; S49.92XA Unspecified injury of left shoulder and upper arm, initial encounter

== ENCOUNTER 2017-01-25 04:17 | Emergency (ER) | payer OTHER, MEDICAID ==
[2016-11-20 12:16] VITALS: BMI 16.3
== END 2017-01-25 06:25 | disposition home or self-care (01) ==
LOC: D.ER 04:17
DX: S20.212A Contusion of left front wall of thorax, initial encounter (principal); W19.XXXA Unspecified fall, initial encounter; Y93.89 Activity, other specified; Y92.89 Other specified places as the place of occurrence of the external cause

== ENCOUNTER 2017-06-01 06:20 | Emergency (ER) | payer OTHER, MEDICAID ==
[2016-11-20 12:16] VITALS: BMI 16.3
== END 2017-06-01 07:38 | disposition home or self-care (01) ==
LOC: D.ER 06:20
DX: S40.012A Contusion of left shoulder, initial encounter (principal); S40.022A Contusion of left upper arm, initial encounter; S70.02XA Contusion of left hip, initial encounter; W19.XXXA Unspecified fall, initial encounter; Y93.89 Activity, other specified; Y92.019 Unspecified place in single-family (private) house as the place of occurrence of the external cause

== ENCOUNTER 2017-07-31 22:48 | Inpatient (IN) | payer OTHER, MEDICAID ==
[~2017-07-31] VITALS: Ht 162.6 cm; Wt 51.8 kg
[2017-07-31 23:31] LABS: BASOPHILS 0.2 % (0-2); EOSINOPHILS 0.6 % (0-7); HEMOGLOBIN 14.6 g/dL (12-16); IMMATURE GRANULOCYTES 0.4 % (0-5); LYMPHOCYTES 10.5 % (15-50); MCH 31.6 pg (26.0-34.0); MCV 93.1 fL (80.0-100.0); MEAN PLATELET VOLUME 9.7 fL (7.4-10.4); MONOCYTES 6.1 % (2-11); NEUTROPHILS 82.2 % (40-80); RBC 4.62 10x6/uL (4.00-5.40); RDW 16.2 % (11.5-14.5); WBC 16.2 10x3/uL (4.8-10.8)
[2017-07-31 23:33] LABS: PLATELET COUNT 430 10x3/uL (130-400)
[2017-07-31 23:48] LABS: INR 0.99 (0.85-1.17); PROTIME 12.7 SECONDS (11.6-15.0)
[2017-07-31 23:49] LABS: APTT 30.7 SECONDS (22.8-39.4)
[2017-07-31 23:50] LABS: D-DIMER-QUANTITATIVE 0.29 ug/mLFEU (0.20-0.54)
[2017-07-31 23:59] LABS: ALBUMIN 3.2 g/dL (3.4-5.0); ALKALINE PHOSPHATASE 197 U/L (46-116); ALT (SGPT) 36 U/L (10-68); AMYLASE - SERUM 150 U/L (25-115); CALC OSMOLALITY 262 mosm/kg (275-300); CALCIUM 8.1 mg/dL (8.5-10.1); CHLORIDE - SERUM 98 mmol/L (98-107); CKMB 1.4 U/L (0.0-3.6); CREATINE KINASE 34 UL (21-215); CREATININE - SERUM 0.6 mg/dL (0.6-1.3); GLUCOSE 118 mg/dL (74-106); PROTEIN - SERUM 7.1 g/dL (6.4-8.2); SODIUM 133 mmol/L (136-145); TROPONIN-I < 0.017 ng/mL (0.000-0.060); UREA NITROGEN 2 mg/dL (7-18); eGFR NON AFRICAN AMERICAN > 90 mL/min (90-120)
[2017-08-01 00:01] LABS: LIPASE 1 U/L (73-393); POTASSIUM - SERUM 2.4 mmol/L (3.5-5.1); PRO BNP 1 pg/mL (0-125)
[2017-08-01 04:00] VITALS: BP 121/86
[2017-08-01] MEDS ORDERED: AMBIEN10 MG PO (04:57)
[2017-08-01] MEDS ORDERED: VALIUM10 MG PO (04:57)
[2017-08-01] MEDS ORDERED: HYDROCODONE-APA1 TAB PO (04:59)
[2017-08-01 05:09] VITALS: BMI 18.0
[2017-08-01 06:56] LABS: BASOPHILS 0.3 % (0-2); EOSINOPHILS 0.8 % (0-7); HEMATOCRIT 39.4 % (36.0-48.0); HEMOGLOBIN 13.2 g/dL (12-16); IMMATURE GRANULOCYTES 0.3 % (0-5); LYMPHOCYTES 34.6 % (15-50); MCH 31.4 pg (26.0-34.0); MCHC 33.5 g/dL (31.0-37.0); MCV 93.8 fL (80.0-100.0); MEAN PLATELET VOLUME 9.6 fL (7.4-10.4); MONOCYTES 8.5 % (2-11); NEUTROPHILS 55.5 % (40-80); PLATELET COUNT 439 10x3/uL (130-400); RDW 16.3 % (11.5-14.5)
[2017-08-01 07:17] LABS: ALBUMIN 2.7 g/dL (3.4-5.0); ALKALINE PHOSPHATASE 179 U/L (46-116); ALT (SGPT) 32 U/L (10-68); BILIRUBIN - TOTAL 0.28 mg/dL (0.2-1.3); CHLORIDE - SERUM 106 mmol/L (98-107); CREATININE - SERUM 0.7 mg/dL (0.6-1.3); PHOSPHOROUS 3.5 mg/dL (2.5-4.9); PROTEIN - SERUM 6.5 g/dL (6.4-8.2); SODIUM 142 mmol/L (136-145); eGFR NON AFRICAN AMERICAN > 90 mL/min (90-120)
[2017-08-01 07:18] LABS: CALC OSMOLALITY 276 mosm/kg (275-300); GLUCOSE 54 mg/dL (74-106); UREA NITROGEN 1 mg/dL (7-18)
[2017-08-01 07:19] LABS: POTASSIUM - SERUM 2.9 mmol/L (3.5-5.1)
[2017-08-01 07:28] LABS: CKMB 1.2 U/L (0.0-3.6); CREATINE KINASE 20 UL (21-215)
[2017-08-01 07:29] LABS: TROPONIN-I < 0.017 ng/mL (0.000-0.060)
[2017-08-01 08:24] VITALS: BP 112/81
[2017-08-01 11:36] VITALS: BP 115/84
[2017-08-01 12:45] LABS: CKMB 1.2 U/L (0.0-3.6); CREATINE KINASE 17 UL (21-215)
[2017-08-01 12:48] LABS: TROPONIN-I < 0.017 ng/mL (0.000-0.060)
[2017-08-01 15:41] VITALS: BP 112/80
[2017-08-01 19:45] LABS: CKMB 1.1 U/L (0.0-3.6); CREATINE KINASE 24 UL (21-215); POTASSIUM - SERUM 3.1 mmol/L (3.5-5.1); TROPONIN-I < 0.017 ng/mL (0.000-0.060)
[2017-08-01 20:00] VITALS: BP 118/66
[2017-08-02] VITALS: BP 120/64
[2017-08-02 04:00] VITALS: BP 124/62
[2017-08-02 05:40] LABS: BASOPHILS 0.3 % (0-2); EOSINOPHILS 1.5 % (0-7); HEMATOCRIT 34.8 % (36.0-48.0); HEMOGLOBIN 11.3 g/dL (12-16); IMMATURE GRANULOCYTES 0.2 % (0-5); LYMPHOCYTES 27.5 % (15-50); MCH 31.4 pg (26.0-34.0); MCHC 32.5 g/dL (31.0-37.0); MCV 96.7 fL (80.0-100.0); MEAN PLATELET VOLUME 9.5 fL (7.4-10.4); MONOCYTES 7.8 % (2-11); NEUTROPHILS 62.7 % (40-80); PLATELET COUNT 380 10x3/uL (130-400); WBC 12.8 10x3/uL (4.8-10.8)
[2017-08-02 05:57] LABS: ALBUMIN 2.3 g/dL (3.4-5.0); ALKALINE PHOSPHATASE 147 U/L (46-116); ALT (SGPT) 32 U/L (10-68); CALC OSMOLALITY 276 mosm/kg (275-300); CALCIUM 7.3 mg/dL (8.5-10.1); CARBON DIOXIDE 28.1 mmol/L (21.0-32.0); CHLORIDE - SERUM 105 mmol/L (98-107); CREATININE - SERUM 0.6 mg/dL (0.6-1.3); GLUCOSE 72 mg/dL (74-106); POTASSIUM - SERUM 2.6 mmol/L (3.5-5.1); PROTEIN - SERUM 5.6 g/dL (6.4-8.2); SODIUM 141 mmol/L (136-145); UREA NITROGEN 4 mg/dL (7-18); eGFR NON AFRICAN AMERICAN > 90 mL/min (90-120)
[2017-08-02 07:48] VITALS: BP 138/78
[2017-08-02 10:38] VITALS: BP 132/75
[2017-08-02 13:25] VITALS: Ht 162.6 cm; Wt 51.8 kg
[2017-08-02 14:56] VITALS: BP 136/71
[2017-08-02 17:02] LABS: APPEARANCE CLEAR (CLEAR); BILIRUBIN NEGATIVE (NEGATIVE); COLOR YELLOW (YELLOW); GLUCOSE NEGATIVE (NEGATIVE); KETONE NEGATIVE (NEGATIVE); NITRITE NEGATIVE (NEGATIVE); PROTEIN NEGATIVE (NEGATIVE); UROBILINOGEN NORMAL (NORMAL)
[2017-08-02 20:00] VITALS: BP 92/65
[2017-08-03 04:00] VITALS: BP 106/67
[2017-08-03 05:47] LABS: BASOPHILS 0.2 % (0-2); EOSINOPHILS 3.2 % (0-7); HEMATOCRIT 35.8 % (36.0-48.0); HEMOGLOBIN 11.3 g/dL (12-16); IMMATURE GRANULOCYTES 0.4 % (0-5); LYMPHOCYTES 43.1 % (15-50); MCHC 31.6 g/dL (31.0-37.0); MCV 98.4 fL (80.0-100.0); MEAN PLATELET VOLUME 9.9 fL (7.4-10.4); MONOCYTES 6.2 % (2-11); NEUTROPHILS 46.9 % (40-80); PLATELET COUNT 396 10x3/uL (130-400); RBC 3.64 10x6/uL (4.00-5.40); RDW 17.5 % (11.5-14.5); WBC 9.6 10x3/uL (4.8-10.8)
[2017-08-03 06:06] LABS: ALBUMIN 2.2 g/dL (3.4-5.0); ALKALINE PHOSPHATASE 147 U/L (46-116); ALT (SGPT) 24 U/L (10-68); BILIRUBIN - TOTAL 0.12 mg/dL (0.2-1.3); CALC OSMOLALITY 275 mosm/kg (275-300); CALCIUM 8.3 mg/dL (8.5-10.1); CARBON DIOXIDE 33.5 mmol/L (21.0-32.0); CHLORIDE - SERUM 103 mmol/L (98-107); CREATININE - SERUM 0.5 mg/dL (0.6-1.3); GLUCOSE 93 mg/dL (74-106); POTASSIUM - SERUM 4.3 mmol/L (3.5-5.1); PROTEIN - SERUM 5.6 g/dL (6.4-8.2); SODIUM 140 mmol/L (136-145); THYROID STIMULATING HORMONE 1.03 uIU/mL (0.36-3.74); UREA NITROGEN 5 mg/dL (7-18); eGFR NON AFRICAN AMERICAN > 90 mL/min (90-120)
[2017-08-03 08:06] VITALS: BP 106/67
[2017-08-03 11:14] VITALS: BP 103/71
[2017-08-03 14:56] VITALS: BP 118/66
[2017-08-03 20:00] VITALS: BP 98/61
[2017-08-04] VITALS: BP 95/66
[2017-08-04 04:00] VITALS: BP 94/70
[2017-08-04 05:39] LABS: BASOPHILS 0.4 % (0-2); EOSINOPHILS 4.2 % (0-7); HEMATOCRIT 35.2 % (36.0-48.0); HEMOGLOBIN 11.4 g/dL (12-16); IMMATURE GRANULOCYTES 0.5 % (0-5); LYMPHOCYTES 34.7 % (15-50); MCH 31.1 pg (26.0-34.0); MCHC 32.4 g/dL (31.0-37.0); MEAN PLATELET VOLUME 9.5 fL (7.4-10.4); MONOCYTES 8.2 % (2-11); PLATELET COUNT 379 10x3/uL (130-400); RBC 3.67 10x6/uL (4.00-5.40); RDW 17.4 % (11.5-14.5); WBC 8.1 10x3/uL (4.8-10.8)
[2017-08-04 05:41] LABS: MCV 95.9 fL (80.0-100.0)
[2017-08-04 06:09] LABS: ALBUMIN 2.2 g/dL (3.4-5.0); ALKALINE PHOSPHATASE 130 U/L (46-116); ALT (SGPT) 21 U/L (10-68); BILIRUBIN - TOTAL 0.13 mg/dL (0.2-1.3); CALC OSMOLALITY 273 mosm/kg (275-300); CALCIUM 8.2 mg/dL (8.5-10.1); CARBON DIOXIDE 34.4 mmol/L (21.0-32.0); CHLORIDE - SERUM 99 mmol/L (98-107); CREATININE - SERUM 0.6 mg/dL (0.6-1.3); GLUCOSE 131 mg/dL (74-106); POTASSIUM - SERUM 4.7 mmol/L (3.5-5.1); PROTEIN - SERUM 5.5 g/dL (6.4-8.2); SODIUM 137 mmol/L (136-145); eGFR NON AFRICAN AMERICAN > 90 mL/min (90-120)
[2017-08-04 06:10] LABS: UREA NITROGEN 7 mg/dL (7-18)
[2017-08-04 08:04] VITALS: BP 95/67
[2017-08-04 11:04] VITALS: BP 105/64
[2017-08-04 14:39] VITALS: BP 110/68
== END 2017-08-04 15:29 | disposition home or self-care (01) | DRG 543 ==
LOC: D.ER 22:48 → OBSVTIME 08-01 03:28 → D.M2 08-01 03:28
PROVIDERS: Emergency Medicine; Family Medicine; Internal Medicine Nephrology
DX: M80.80XA Other osteoporosis with current pathological fracture, unspecified site, initial encounter for fracture (principal); E44.0 Moderate protein-calorie malnutrition; Z68.1 Body mass index [BMI] 19.9 or less, adult; M87.859 Other osteonecrosis, unspecified femur; Z87.310 Personal history of (healed) osteoporosis fracture; M84.48XA Pathological fracture, other site, initial encounter for fracture; E87.6 Hypokalemia; D64.9 Anemia, unspecified

== ENCOUNTER 2017-08-21 14:08 | Emergency (ER) | payer OTHER, MEDICAID ==
[2017-08-02 13:25] VITALS: BMI 18.8
[2017-08-21 14:53] LABS: APPEARANCE CLEAR (CLEAR); BILIRUBIN NEGATIVE (NEGATIVE); COLOR STRAW (YELLOW); GLUCOSE NEGATIVE (NEGATIVE); KETONE NEGATIVE (NEGATIVE); NITRITE NEGATIVE (NEGATIVE); PROTEIN TRACE mg/dL (NEGATIVE); UROBILINOGEN NORMAL (NORMAL)
[2017-08-21 14:54] LABS: BACTERIA FEW /hpf (NONE SEEN); RED CELLS - URINE 0-5 /hpf (0-5)
[2017-08-21 14:59] LABS: BASOPHILS 0.5 % (0-2); EOSINOPHILS 1.4 % (0-7); HEMATOCRIT 42.8 % (36.0-48.0); HEMOGLOBIN 14.5 g/dL (12-16); IMMATURE GRANULOCYTES 0.4 % (0-5); LYMPHOCYTES 20.7 % (15-50); MCH 32.2 pg (26.0-34.0); MCHC 33.9 g/dL (31.0-37.0); MCV 94.9 fL (80.0-100.0); MONOCYTES 5.7 % (2-11); NEUTROPHILS 71.3 % (40-80); RBC 4.51 10x6/uL (4.00-5.40); RDW 16.3 % (11.5-14.5); WBC 14.7 10x3/uL (4.8-10.8)
[2017-08-21 15:02] LABS: PLATELET COUNT 516 10x3/uL (130-400)
[2017-08-21 15:03] LABS: ALBUMIN 3.3 g/dL (3.4-5.0); ALKALINE PHOSPHATASE 197 U/L (46-116); ALT (SGPT) 20 U/L (10-68); BILIRUBIN - TOTAL 0.33 mg/dL (0.2-1.3); CALC OSMOLALITY 264 mosm/kg (275-300); CALCIUM 8.7 mg/dL (8.5-10.1); CARBON DIOXIDE 19.7 mmol/L (21.0-32.0); CHLORIDE - SERUM 100 mmol/L (98-107); CREATININE - SERUM 0.8 mg/dL (0.6-1.3); GLUCOSE 103 mg/dL (74-106); PROTEIN - SERUM 7.7 g/dL (6.4-8.2); SODIUM 134 mmol/L (136-145); UREA NITROGEN 3 mg/dL (7-18); eGFR NON AFRICAN AMERICAN 78 mL/min (90-120)
[2017-08-21 15:06] LABS: POTASSIUM - SERUM 2.4 mmol/L (3.5-5.1)
== END 2017-08-21 16:50 | disposition home or self-care (01) ==
LOC: D.ER 14:08
PROVIDERS: Family Medicine
DX: R53.1 Weakness (principal); E87.6 Hypokalemia; I44.4 Left anterior fascicular block; F17.200 Nicotine dependence, unspecified, uncomplicated

== ENCOUNTER 2017-08-28 14:15 | Inpatient (IN) | payer OTHER, MEDICAID ==
[~2017-08-28] VITALS: Ht 162.6 cm; Wt 58.4 kg
[2017-08-28 14:53] LABS: BASOPHILS 0.3 % (0-2); EOSINOPHILS 0.6 % (0-7); HEMATOCRIT 42.2 % (36.0-48.0); HEMOGLOBIN 15.4 g/dL (12-16); IMMATURE GRANULOCYTES 0.7 % (0-5); MCH 32.6 pg (26.0-34.0); MCHC 36.5 g/dL (31.0-37.0); MCV 89.2 fL (80.0-100.0); NEUTROPHILS 69.4 % (40-80); PLATELET COUNT 480 10x3/uL (130-400); RBC 4.73 10x6/uL (4.00-5.40); RDW 15.2 % (11.5-14.5); WBC 13.7 10x3/uL (4.8-10.8)
[2017-08-28 15:17] LABS: ALBUMIN 3.3 g/dL (3.4-5.0); ALKALINE PHOSPHATASE 176 U/L (46-116); ALT (SGPT) 29 U/L (10-68); BILIRUBIN - TOTAL 0.37 mg/dL (0.2-1.3); CALC OSMOLALITY 254 mosm/kg (275-300); CALCIUM 8.4 mg/dL (8.5-10.1); CARBON DIOXIDE 26.5 mmol/L (21.0-32.0); CHLORIDE - SERUM 90 mmol/L (98-107); CREATININE - SERUM 0.8 mg/dL (0.6-1.3); GLUCOSE 116 mg/dL (74-106); LIPASE 242 U/L (73-393); PRO BNP 271 pg/mL (0-125); PROTEIN - SERUM 7.5 g/dL (6.4-8.2); SODIUM 128 mmol/L (136-145); UREA NITROGEN 3 mg/dL (7-18); eGFR NON AFRICAN AMERICAN 78 mL/min (90-120)
[2017-08-28 15:28] LABS: POTASSIUM - SERUM 1.5 mmol/L (3.5-5.1); TROPONIN-I < 0.017 ng/mL (0.000-0.060)
[2017-08-28 17:35] LABS: ALBUMIN 3.4 g/dL (3.4-5.0); ALKALINE PHOSPHATASE 178 U/L (46-116); ALT (SGPT) 27 U/L (10-68); BILIRUBIN - TOTAL 0.41 mg/dL (0.2-1.3); CALC OSMOLALITY 250 mosm/kg (275-300); CALCIUM 8.6 mg/dL (8.5-10.1); CARBON DIOXIDE 24.4 mmol/L (21.0-32.0); CHLORIDE - SERUM 90 mmol/L (98-107); CREATININE - SERUM 0.8 mg/dL (0.6-1.3); GLUCOSE 120 mg/dL (74-106); MAGNESIUM - SERUM 2.3 mg/dL (1.8-2.4); PROTEIN - SERUM 7.5 g/dL (6.4-8.2); SODIUM 126 mmol/L (136-145); UREA NITROGEN 3 mg/dL (7-18); eGFR NON AFRICAN AMERICAN 78 mL/min (90-120)
[2017-08-28 17:36] LABS: POTASSIUM - SERUM 1.4 mmol/L (3.5-5.1)
[2017-08-28 19:43] LABS: MAGNESIUM - SERUM 2.1 mg/dL (1.8-2.4); THYROID STIMULATING HORMONE 1.16 uIU/mL (0.36-3.74)
[2017-08-28 20:31] LABS: T4 THYROXINE 12.2 ug/dL (4.7-13.3)
[2017-08-29] VITALS (7 sets, daily range): BP systolic 92–117; BP diastolic 60–81; Ht 162.6 cm; Wt 58.4 kg
[2017-08-29 08:40] LABS: MAGNESIUM - SERUM 2.1 mg/dL (1.8-2.4)
[2017-08-29 08:46] LABS: PHOSPHOROUS 1.5 mg/dL (2.5-4.9)
[2017-08-29 10:36] LABS: CREATININE - URINE 34.3 mg/dL (30-125); POTASSIUM - URINE 20.1 MMOL/L (12.0-62.0)
[2017-08-29 10:40] LABS: APPEARANCE CLEAR (CLEAR); BILIRUBIN NEGATIVE (NEGATIVE); COLOR YELLOW (YELLOW); GLUCOSE NEGATIVE (NEGATIVE); KETONE NEGATIVE (NEGATIVE); NITRITE NEGATIVE (NEGATIVE); PROTEIN TRACE mg/dL (NEGATIVE); UROBILINOGEN NORMAL (NORMAL)
[2017-08-29 10:42] LABS: BACTERIA FEW /hpf (NONE SEEN); RED CELLS - URINE 0-5 /hpf (0-5); WHITE CELLS - URINE 0-5 /hpf (0-5)
[2017-08-29 14:52] LABS: ALKALINE PHOSPHATASE 141 U/L (46-116); BILIRUBIN - TOTAL 0.17 mg/dL (0.2-1.3); CALCIUM 7.4 mg/dL (8.5-10.1); CARBON DIOXIDE 23.7 mmol/L (21.0-32.0); CHLORIDE - SERUM 105 mmol/L (98-107); CREATININE - SERUM 0.7 mg/dL (0.6-1.3); GLUCOSE 119 mg/dL (74-106); SODIUM 139 mmol/L (136-145); eGFR NON AFRICAN AMERICAN > 90 mL/min (90-120)
[2017-08-29 14:55] LABS: CALC OSMOLALITY 275 mosm/kg (275-300); UREA NITROGEN 5 mg/dL (7-18)
[2017-08-29 14:56] LABS: ALT (SGPT) 18 U/L (10-68); POTASSIUM - SERUM 2.7 mmol/L (3.5-5.1); PROTEIN - SERUM 5.4 g/dL (6.4-8.2)
[2017-08-29 14:57] LABS: ALBUMIN 2.4 g/dL (3.4-5.0)
[2017-08-30] VITALS (8 sets, daily range): BP systolic 81–99; BP diastolic 47–63
[2017-08-30 05:29] LABS: BASOPHILS 0.3 % (0-2); EOSINOPHILS 1.8 % (0-7); HEMATOCRIT 34.2 % (36.0-48.0); HEMOGLOBIN 11.5 g/dL (12-16); IMMATURE GRANULOCYTES 0.6 % (0-5); LYMPHOCYTES 31.7 % (15-50); MCH 31.8 pg (26.0-34.0); MCHC 33.6 g/dL (31.0-37.0); MCV 94.5 fL (80.0-100.0); MEAN PLATELET VOLUME 10.2 fL (7.4-10.4); MONOCYTES 6.9 % (2-11); NEUTROPHILS 58.7 % (40-80); PLATELET COUNT 400 10x3/uL (130-400); RBC 3.62 10x6/uL (4.00-5.40); WBC 9.8 10x3/uL (4.8-10.8)
[2017-08-30 05:45] LABS: ALBUMIN 2.4 g/dL (3.4-5.0); ALKALINE PHOSPHATASE 118 U/L (46-116); ALT (SGPT) 15 U/L (10-68); CALC OSMOLALITY 278 mosm/kg (275-300); CALCIUM 7.6 mg/dL (8.5-10.1); CARBON DIOXIDE 24.5 mmol/L (21.0-32.0); CHLORIDE - SERUM 107 mmol/L (98-107); CREATININE - SERUM 0.7 mg/dL (0.6-1.3); GLUCOSE 110 mg/dL (74-106); PROTEIN - SERUM 5.4 g/dL (6.4-8.2); SODIUM 141 mmol/L (136-145); UREA NITROGEN 5 mg/dL (7-18); eGFR NON AFRICAN AMERICAN > 90 mL/min (90-120)
[2017-08-30 05:46] LABS: POTASSIUM - SERUM 3.3 mmol/L (3.5-5.1)
[2017-08-31] VITALS (7 sets, daily range): BP systolic 84–102; BP diastolic 56–68
[2017-08-31 05:50] LABS: BASOPHILS 0.3 % (0-2); EOSINOPHILS 2.3 % (0-7); HEMATOCRIT 32.4 % (36.0-48.0); HEMOGLOBIN 10.7 g/dL (12-16); IMMATURE GRANULOCYTES 0.7 % (0-5); MCH 31.8 pg (26.0-34.0); MCV 96.1 fL (80.0-100.0); MEAN PLATELET VOLUME 9.7 fL (7.4-10.4); MONOCYTES 5.8 % (2-11); NEUTROPHILS 66.9 % (40-80); PLATELET COUNT 386 10x3/uL (130-400); RBC 3.37 10x6/uL (4.00-5.40)
[2017-08-31 05:52] LABS: WBC 14.4 10x3/uL (4.8-10.8)
[2017-08-31 06:14] LABS: ALBUMIN 2.1 g/dL (3.4-5.0); ALKALINE PHOSPHATASE 112 U/L (46-116); ALT (SGPT) 13 U/L (10-68); CALCIUM 7.5 mg/dL (8.5-10.1); CARBON DIOXIDE 22.2 mmol/L (21.0-32.0); CHLORIDE - SERUM 108 mmol/L (98-107); CREATININE - SERUM 0.6 mg/dL (0.6-1.3); GLUCOSE 73 mg/dL (74-106); MAGNESIUM - SERUM 1.3 mg/dL (1.8-2.4); PHOSPHOROUS 2.4 mg/dL (2.5-4.9); PROTEIN - SERUM 4.9 g/dL (6.4-8.2); SODIUM 138 mmol/L (136-145); eGFR NON AFRICAN AMERICAN > 90 mL/min (90-120)
[2017-08-31 06:15] LABS: CALC OSMOLALITY 273 mosm/kg (275-300); POTASSIUM - SERUM 3.9 mmol/L (3.5-5.1); UREA NITROGEN 9 mg/dL (7-18)
[2017-09-01 06:18] LABS: BASOPHILS 0.2 % (0-2); EOSINOPHILS 3.5 % (0-7); HEMATOCRIT 32.3 % (36.0-48.0); HEMOGLOBIN 10.7 g/dL (12-16); IMMATURE GRANULOCYTES 1.9 % (0-5); LYMPHOCYTES 24.4 % (15-50); MCH 31.8 pg (26.0-34.0); MCHC 33.1 g/dL (31.0-37.0); MCV 96.1 fL (80.0-100.0); MEAN PLATELET VOLUME 10.3 fL (7.4-10.4); MONOCYTES 8.4 % (2-11); NEUTROPHILS 61.6 % (40-80); PLATELET COUNT 315 10x3/uL (130-400); RBC 3.36 10x6/uL (4.00-5.40); WBC 13.6 10x3/uL (4.8-10.8)
[2017-09-01 06:34] VITALS: BP 85/56
[2017-09-01 06:38] LABS: ALBUMIN 2.2 g/dL (3.4-5.0); ALKALINE PHOSPHATASE 117 U/L (46-116); ALT (SGPT) 13 U/L (10-68); CALCIUM 7.5 mg/dL (8.5-10.1); CHLORIDE - SERUM 106 mmol/L (98-107); CREATININE - SERUM 0.5 mg/dL (0.6-1.3); PROTEIN - SERUM 5.1 g/dL (6.4-8.2); SODIUM 138 mmol/L (136-145); UREA NITROGEN 7 mg/dL (7-18); eGFR NON AFRICAN AMERICAN > 90 mL/min (90-120)
[2017-09-01 06:44] LABS: CALC OSMOLALITY 274 mosm/kg (275-300); GLUCOSE 112 mg/dL (74-106)
[2017-09-01] MEDS ORDERED: NEUTRA-PHOS PAC1 PK1 PO (10:02)
[2017-09-01] MEDS ORDERED: PROTONIX40 MG PO (10:02)
[2017-09-01] MEDS ORDERED: MAG-OX 400 MG400 MG PO (10:02)
[2017-09-01] MEDS ORDERED: K-DUR20 MEQ PO (10:03)
== END 2017-09-01 17:28 | disposition home or self-care (01) | DRG 641 ==
LOC: D.ER 14:15 → D.EDHOLD 17:14 → D.M2 17:14 → OBSVTIME 17:15 → D.M2 17:43
PROVIDERS: Family Medicine; Internal Medicine Nephrology
DX: E87.6 Hypokalemia (principal); E44.0 Moderate protein-calorie malnutrition; E87.1 Hypo-osmolality and hyponatremia; F41.9 Anxiety disorder, unspecified; F32.9 Major depressive disorder, single episode, unspecified; M81.0 Age-related osteoporosis without current pathological fracture; I95.9 Hypotension, unspecified; G89.29 Other chronic pain; Z86.73 Personal history of transient ischemic attack (TIA), and cerebral infarction without residual deficits

== ENCOUNTER 2017-09-11 04:52 | Emergency (ER) | payer OTHER, MEDICAID ==
[~2017-09-11 04:52] MED LIST changes: +MAG-OX 400 MG400 MG PO; +NEUTRA-PHOS PAC1 PK1 PO
[2017-09-11 05:16] LABS: BASOPHILS 0.6 % (0-2); EOSINOPHILS 2.5 % (0-7); HEMATOCRIT 35.3 % (36.0-48.0); HEMOGLOBIN 11.3 g/dL (12-16); IMMATURE GRANULOCYTES 0.8 % (0-5); LYMPHOCYTES 20.7 % (15-50); MCH 31.9 pg (26.0-34.0); MCV 99.7 fL (80.0-100.0); MEAN PLATELET VOLUME 9.5 fL (7.4-10.4); MONOCYTES 4.8 % (2-11); NEUTROPHILS 70.6 % (40-80); PLATELET COUNT 449 10x3/uL (130-400); RBC 3.54 10x6/uL (4.00-5.40); RDW 16.5 % (11.5-14.5); WBC 10.5 10x3/uL (4.8-10.8)
[2017-09-11 05:39] LABS: ALBUMIN 2.7 g/dL (3.4-5.0); ALKALINE PHOSPHATASE 240 U/L (46-116); ALT (SGPT) 23 U/L (10-68); BILIRUBIN - TOTAL 0.45 mg/dL (0.2-1.3); CALC OSMOLALITY 281 mosm/kg (275-300); CALCIUM 8.1 mg/dL (8.5-10.1); CARBON DIOXIDE 17.1 mmol/L (21.0-32.0); CHLORIDE - SERUM 112 mmol/L (98-107); CREATININE - SERUM 0.7 mg/dL (0.6-1.3); GLUCOSE 74 mg/dL (74-106); PHOSPHOROUS 2.9 mg/dL (2.5-4.9); POTASSIUM - SERUM 3.2 mmol/L (3.5-5.1); PROTEIN - SERUM 6.8 g/dL (6.4-8.2); SODIUM 144 mmol/L (136-145); UREA NITROGEN 2 mg/dL (7-18); eGFR NON AFRICAN AMERICAN > 90 mL/min (90-120)
== END 2017-09-11 06:08 | disposition home or self-care (01) ==
LOC: D.ER 04:52
PROVIDERS: Emergency Medicine
DX: E87.6 Hypokalemia (principal); W19.XXXA Unspecified fall, initial encounter; Y93.89 Activity, other specified; Y92.019 Unspecified place in single-family (private) house as the place of occurrence of the external cause

== ENCOUNTER 2017-09-14 16:18 | Emergency (ER) | payer OTHER, MEDICAID ==
[2017-09-14 16:40] LABS: BASOPHILS 0.6 % (0-2); EOSINOPHILS 1.2 % (0-7); HEMATOCRIT 41.8 % (36.0-48.0); HEMOGLOBIN 13.5 g/dL (12-16); IMMATURE GRANULOCYTES 0.9 % (0-5); LYMPHOCYTES 21.6 % (15-50); MCH 32.1 pg (26.0-34.0); MCHC 32.3 g/dL (31.0-37.0); MCV 99.3 fL (80.0-100.0); MEAN PLATELET VOLUME 9.9 fL (7.4-10.4); MONOCYTES 5.8 % (2-11); NEUTROPHILS 69.9 % (40-80); PLATELET COUNT 497 10x3/uL (130-400); RBC 4.21 10x6/uL (4.00-5.40); RDW 15.7 % (11.5-14.5); WBC 11.5 10x3/uL (4.8-10.8)
[2017-09-14 17:04] LABS: ALBUMIN 3.2 g/dL (3.4-5.0); ALKALINE PHOSPHATASE 255 U/L (46-116); ALT (SGPT) 17 U/L (10-68); BILIRUBIN - TOTAL 0.27 mg/dL (0.2-1.3); CALC OSMOLALITY 271 mosm/kg (275-300); CALCIUM 8.4 mg/dL (8.5-10.1); CHLORIDE - SERUM 106 mmol/L (98-107); CREATININE - SERUM 0.8 mg/dL (0.6-1.3); GLUCOSE 71 mg/dL (74-106); POTASSIUM - SERUM 3.5 mmol/L (3.5-5.1); PROTEIN - SERUM 7.7 g/dL (6.4-8.2); SODIUM 139 mmol/L (136-145); UREA NITROGEN 2 mg/dL (7-18); eGFR NON AFRICAN AMERICAN 78 mL/min (90-120)
== END 2017-09-14 18:30 | disposition home or self-care (01) ==
LOC: D.ER 16:18
PROVIDERS: Emergency Medicine
DX: S22.42XA Multiple fractures of ribs, left side, initial encounter for closed fracture (principal); W19.XXXA Unspecified fall, initial encounter; Y93.89 Activity, other specified; Y92.019 Unspecified place in single-family (private) house as the place of occurrence of the external cause; M25.552 Pain in left hip; F17.200 Nicotine dependence, unspecified, uncomplicated

== ENCOUNTER 2017-09-24 09:05 | Inpatient (IN) | payer OTHER, MEDICAID ==
[~2017-09-24] VITALS: Ht 162.6 cm; Wt 60.5 kg
[2017-09-24 09:32] LABS: APPEARANCE CLEAR (CLEAR); BILIRUBIN NEGATIVE (NEGATIVE); COLOR YELLOW (YELLOW); GLUCOSE NEGATIVE (NEGATIVE); KETONE NEGATIVE (NEGATIVE); NITRITE NEGATIVE (NEGATIVE); PROTEIN NEGATIVE (NEGATIVE); UROBILINOGEN NORMAL (NORMAL)
[2017-09-24 10:13] LABS: BASOPHILS 0.3 % (0-2); EOSINOPHILS 1.5 % (0-7); HEMATOCRIT 34.6 % (36.0-48.0); IMMATURE GRANULOCYTES 0.5 % (0-5); LYMPHOCYTES 27.7 % (15-50); MCH 31.9 pg (26.0-34.0); MCHC 34.7 g/dL (31.0-37.0); MEAN PLATELET VOLUME 10.5 fL (7.4-10.4); MONOCYTES 9.5 % (2-11); NEUTROPHILS 60.5 % (40-80); PLATELET COUNT 400 10x3/uL (130-400); RBC 3.76 10x6/uL (4.00-5.40); RDW 14.8 % (11.5-14.5); WBC 10.7 10x3/uL (4.8-10.8)
[2017-09-24 10:31] LABS: ALBUMIN 2.6 g/dL (3.4-5.0); ALKALINE PHOSPHATASE 155 U/L (46-116); ALT (SGPT) 22 U/L (10-68); AMYLASE - SERUM 260 U/L (25-115); CALCIUM 7.9 mg/dL (8.5-10.1); CARBON DIOXIDE 27.7 mmol/L (21.0-32.0); CHLORIDE - SERUM 104 mmol/L (98-107); CREATININE - SERUM 0.6 mg/dL (0.6-1.3); LIPASE 517 U/L (73-393); PROTEIN - SERUM 5.7 g/dL (6.4-8.2); SODIUM 141 mmol/L (136-145); UREA NITROGEN 4 mg/dL (7-18); eGFR NON AFRICAN AMERICAN > 90 mL/min (90-120)
[2017-09-24 10:35] LABS: CALC OSMOLALITY 278 mosm/kg (275-300); GLUCOSE 114 mg/dL (74-106); POTASSIUM - SERUM 2.1 mmol/L (3.5-5.1)
[2017-09-24 14:14] VITALS: BP 114/78
[2017-09-24 14:31] VITALS: BP 114/78; BMI 19.5
[2017-09-24 19:53] VITALS: BP 98/60
[2017-09-25] VITALS: BP 90/56; BP 92/55
[2017-09-25 02:14] LABS: BASOPHILS 0.4 % (0-2); EOSINOPHILS 3.8 % (0-7); HEMATOCRIT 32.1 % (36.0-48.0); HEMOGLOBIN 10.8 g/dL (12-16); IMMATURE GRANULOCYTES 0.3 % (0-5); LYMPHOCYTES 40.1 % (15-50); MCH 31.5 pg (26.0-34.0); MCHC 33.6 g/dL (31.0-37.0); MCV 93.6 fL (80.0-100.0); MEAN PLATELET VOLUME 9.8 fL (7.4-10.4); MONOCYTES 7.8 % (2-11); NEUTROPHILS 47.6 % (40-80); PLATELET COUNT 363 10x3/uL (130-400); RBC 3.43 10x6/uL (4.00-5.40); RDW 15.2 % (11.5-14.5); WBC 10.4 10x3/uL (4.8-10.8)
[2017-09-25 02:28] LABS: ALBUMIN 2.3 g/dL (3.4-5.0); ALKALINE PHOSPHATASE 140 U/L (46-116); ALT (SGPT) 18 U/L (10-68); CALC OSMOLALITY 277 mosm/kg (275-300); CALCIUM 7.6 mg/dL (8.5-10.1); CARBON DIOXIDE 31.7 mmol/L (21.0-32.0); CHLORIDE - SERUM 106 mmol/L (98-107); CREATININE - SERUM 0.7 mg/dL (0.6-1.3); GLUCOSE 100 mg/dL (74-106); MAGNESIUM - SERUM 1.6 mg/dL (1.8-2.4); PHOSPHOROUS 2.2 mg/dL (2.5-4.9); PROTEIN - SERUM 5.4 g/dL (6.4-8.2); SODIUM 141 mmol/L (136-145); UREA NITROGEN 5 mg/dL (7-18); eGFR NON AFRICAN AMERICAN > 90 mL/min (90-120)
[2017-09-25 02:29] LABS: POTASSIUM - SERUM 2.2 mmol/L (3.5-5.1)
[2017-09-25 04:00] VITALS: BP 92/55
[2017-09-25 08:17] VITALS: BP 104/66; BP 80/52
[2017-09-25 10:55] VITALS: Ht 162.6 cm; Wt 60.5 kg
[2017-09-25 11:10] LABS: ALBUMIN 2.5 g/dL (3.4-5.0); ALKALINE PHOSPHATASE 141 U/L (46-116); ALT (SGPT) 15 U/L (10-68); BILIRUBIN - TOTAL 0.14 mg/dL (0.2-1.3); CALC OSMOLALITY 275 mosm/kg (275-300); CALCIUM 7.9 mg/dL (8.5-10.1); CARBON DIOXIDE 29.4 mmol/L (21.0-32.0); CHLORIDE - SERUM 103 mmol/L (98-107); GLUCOSE 107 mg/dL (74-106); PROTEIN - SERUM 5.8 g/dL (6.4-8.2); SODIUM 139 mmol/L (136-145); UREA NITROGEN 6 mg/dL (7-18)
[2017-09-25 11:12] LABS: CREATININE - SERUM 0.5 mg/dL (0.6-1.3); eGFR NON AFRICAN AMERICAN > 90 mL/min (90-120)
[2017-09-25 11:15] LABS: POTASSIUM - SERUM 2.3 mmol/L (3.5-5.1)
[2017-09-25 11:52] VITALS: BP 99/69
[2017-09-25 20:00] VITALS: BP 98/64
[2017-09-26] VITALS: BP 86/57
[2017-09-26 04:00] VITALS: BP 93/63
[2017-09-26 05:07] LABS: BASOPHILS 0.3 % (0-2); EOSINOPHILS 2.5 % (0-7); HEMATOCRIT 32.1 % (36.0-48.0); HEMOGLOBIN 10.6 g/dL (12-16); IMMATURE GRANULOCYTES 0.5 % (0-5); LYMPHOCYTES 34.1 % (15-50); MCH 31.5 pg (26.0-34.0); MCV 95.5 fL (80.0-100.0); MEAN PLATELET VOLUME 10.4 fL (7.4-10.4); MONOCYTES 9.3 % (2-11); NEUTROPHILS 53.3 % (40-80); PLATELET COUNT 379 10x3/uL (130-400); RBC 3.36 10x6/uL (4.00-5.40)
[2017-09-26 06:32] LABS: ALBUMIN 2.2 g/dL (3.4-5.0); ALKALINE PHOSPHATASE 123 U/L (46-116); ALT (SGPT) 19 U/L (10-68); BILIRUBIN - TOTAL 0.11 mg/dL (0.2-1.3); CALC OSMOLALITY 277 mosm/kg (275-300); CALCIUM 7.2 mg/dL (8.5-10.1); CARBON DIOXIDE 25.2 mmol/L (21.0-32.0); CHLORIDE - SERUM 107 mmol/L (98-107); CREATININE - SERUM 0.5 mg/dL (0.6-1.3); MAGNESIUM - SERUM 1.6 mg/dL (1.8-2.4); PHOSPHOROUS 2.3 mg/dL (2.5-4.9); PROTEIN - SERUM 5.4 g/dL (6.4-8.2); SODIUM 142 mmol/L (136-145); UREA NITROGEN 5 mg/dL (7-18); eGFR NON AFRICAN AMERICAN > 90 mL/min (90-120)
[2017-09-26 06:36] LABS: GLUCOSE 66 mg/dL (74-106); POTASSIUM - SERUM 2.4 mmol/L (3.5-5.1)
[2017-09-26 09:07] VITALS: BP 101/72
[2017-09-26 13:26] VITALS: BP 96/65
[2017-09-26 15:29] LABS: MAGNESIUM - SERUM 1.7 mg/dL (1.8-2.4)
[2017-09-26 15:33] LABS: PHOSPHOROUS 3.6 mg/dL (2.5-4.9)
[2017-09-26 15:35] LABS: POTASSIUM - SERUM 2.8 mmol/L (3.5-5.1)
[2017-09-26 16:19] VITALS: BP 102/63
[2017-09-26 20:00] VITALS: BP 100/63
[2017-09-27] VITALS: BP 81/49
[2017-09-27 04:00] VITALS: BP 112/72
[2017-09-27 06:04] LABS: BASOPHILS 0.4 % (0-2); EOSINOPHILS 1.9 % (0-7); HEMATOCRIT 32.9 % (36.0-48.0); HEMOGLOBIN 10.7 g/dL (12-16); MCH 31.8 pg (26.0-34.0); MCHC 32.5 g/dL (31.0-37.0); MONOCYTES 8.6 % (2-11); NEUTROPHILS 58.1 % (40-80); PLATELET COUNT 385 10x3/uL (130-400); RBC 3.36 10x6/uL (4.00-5.40); RDW 16.4 % (11.5-14.5)
[2017-09-27 06:08] LABS: MCV 97.9 fL (80.0-100.0); WBC 14.3 10x3/uL (4.8-10.8)
[2017-09-27 07:11] LABS: ALBUMIN 2.3 g/dL (3.4-5.0); ALKALINE PHOSPHATASE 135 U/L (46-116); ALT (SGPT) 14 U/L (10-68); CALC OSMOLALITY 282 mosm/kg (275-300); CALCIUM 7.5 mg/dL (8.5-10.1); CARBON DIOXIDE 22.4 mmol/L (21.0-32.0); CHLORIDE - SERUM 110 mmol/L (98-107); CREATININE - SERUM 0.4 mg/dL (0.6-1.3); GLUCOSE 90 mg/dL (74-106); MAGNESIUM - SERUM 1.8 mg/dL (1.8-2.4); PHOSPHOROUS 2.8 mg/dL (2.5-4.9); POTASSIUM - SERUM 4.3 mmol/L (3.5-5.1); PROTEIN - SERUM 5.3 g/dL (6.4-8.2); SODIUM 143 mmol/L (136-145); UREA NITROGEN 8 mg/dL (7-18); eGFR NON AFRICAN AMERICAN > 90 mL/min (90-120)
[2017-09-27 08:21] VITALS: BP 99/68
[2017-09-27 12:09] VITALS: BP 111/74
[2017-09-27 22:20] VITALS: BP 119/84
[2017-09-28 01:22] VITALS: BP 124/84
[2017-09-28 04:45] VITALS: BP 134/74
[2017-09-28 07:16] LABS: BASOPHILS 0.4 % (0-2); EOSINOPHILS 2.1 % (0-7); HEMATOCRIT 33.5 % (36.0-48.0); HEMOGLOBIN 10.6 g/dL (12-16); IMMATURE GRANULOCYTES 1.9 % (0-5); LYMPHOCYTES 27.4 % (15-50); MCH 31.3 pg (26.0-34.0); MCHC 31.6 g/dL (31.0-37.0); MCV 98.8 fL (80.0-100.0); MEAN PLATELET VOLUME 10.7 fL (7.4-10.4); MONOCYTES 8.2 % (2-11); PLATELET COUNT 343 10x3/uL (130-400); RBC 3.39 10x6/uL (4.00-5.40); RDW 16.4 % (11.5-14.5); WBC 14.1 10x3/uL (4.8-10.8)
[2017-09-28 07:44] LABS: ALBUMIN 2.5 g/dL (3.4-5.0); ALKALINE PHOSPHATASE 131 U/L (46-116); ALT (SGPT) 15 U/L (10-68); BILIRUBIN - TOTAL 0.19 mg/dL (0.2-1.3); CALC OSMOLALITY 283 mosm/kg (275-300); CALCIUM 7.6 mg/dL (8.5-10.1); CARBON DIOXIDE 22.3 mmol/L (21.0-32.0); CHLORIDE - SERUM 111 mmol/L (98-107); CREATININE - SERUM 0.6 mg/dL (0.6-1.3); GLUCOSE 90 mg/dL (74-106); MAGNESIUM - SERUM 2.1 mg/dL (1.8-2.4); PHOSPHOROUS 3.5 mg/dL (2.5-4.9); PROTEIN - SERUM 5.9 g/dL (6.4-8.2); SODIUM 144 mmol/L (136-145); UREA NITROGEN 5 mg/dL (7-18); eGFR NON AFRICAN AMERICAN > 90 mL/min (90-120)
[2017-09-28 07:45] LABS: POTASSIUM - SERUM 4.4 mmol/L (3.5-5.1)
[2017-09-28 10:38] VITALS: BP 122/83
== END 2017-09-28 12:40 | disposition home or self-care (01) | DRG 641 ==
LOC: D.ER 09:05 → D.EDHOLD 12:44 → OBSVTIME 12:44 → D.MS 13:01
PROVIDERS: Emergency Medicine; Family Medicine
DX: E87.6 Hypokalemia (principal); F54 Psychological and behavioral factors associated with disorders or diseases classified elsewhere; R63.1 Polydipsia; R11.2 Nausea with vomiting, unspecified; R53.1 Weakness; E87.1 Hypo-osmolality and hyponatremia; I95.9 Hypotension, unspecified; G89.29 Other chronic pain; Z85.3 Personal history of malignant neoplasm of breast; Z85.42 Personal history of malignant neoplasm of other parts of uterus; Z85.828 Personal history of other malignant neoplasm of skin; R07.81 Pleurodynia; W19.XXXA Unspecified fall, initial encounter

== ENCOUNTER 2017-10-09 10:44 | Emergency (ER) | payer OTHER, MEDICAID ==
[2017-09-25 10:55] VITALS: BMI 19.4
[2017-10-09 12:18] LABS: ALBUMIN 3.4 g/dL (3.4-5.0); ALKALINE PHOSPHATASE 285 U/L (46-116); ALT (SGPT) 34 U/L (10-68); CALC OSMOLALITY 271 mosm/kg (275-300); CALCIUM 8.4 mg/dL (8.5-10.1); CARBON DIOXIDE 16.6 mmol/L (21.0-32.0); CHLORIDE - SERUM 107 mmol/L (98-107); CREATININE - SERUM 0.8 mg/dL (0.6-1.3); GLUCOSE 81 mg/dL (74-106); POTASSIUM - SERUM 3.4 mmol/L (3.5-5.1); PROTEIN - SERUM 7.7 g/dL (6.4-8.2); SODIUM 138 mmol/L (136-145); UREA NITROGEN 3 mg/dL (7-18); eGFR NON AFRICAN AMERICAN 78 mL/min (90-120)
== END 2017-10-09 13:20 | disposition home or self-care (01) ==
LOC: D.ER 10:44
PROVIDERS: Family Medicine
DX: R55 Syncope and collapse (principal); S30.1XXA Contusion of abdominal wall, initial encounter; W18.31XA Fall on same level due to stepping on an object, initial encounter; Y93.89 Activity, other specified; Y92.019 Unspecified place in single-family (private) house as the place of occurrence of the external cause

== ENCOUNTER 2017-10-14 10:16 | Emergency (ER) | payer OTHER, MEDICAID ==
[2017-09-25 10:55] VITALS: BMI 19.4
== END 2017-10-14 14:12 | disposition home or self-care (01) ==
LOC: D.ER 10:16
DX: M25.552 Pain in left hip (principal); W01.0XXA Fall on same level from slipping, tripping and stumbling without subsequent striking against object, initial encounter; Y93.89 Activity, other specified; Y92.019 Unspecified place in single-family (private) house as the place of occurrence of the external cause; F17.200 Nicotine dependence, unspecified, uncomplicated

== ENCOUNTER 2017-10-16 04:03 | Emergency (ER) | payer OTHER, MEDICAID ==
[2017-09-25 10:55] VITALS: BMI 19.4
[2017-10-16 04:34] LABS: BASOPHILS 0.2 % (0-2); EOSINOPHILS 0.4 % (0-7); HEMATOCRIT 43.8 % (36.0-48.0); HEMOGLOBIN 15.2 g/dL (12-16); IMMATURE GRANULOCYTES 0.4 % (0-5); LYMPHOCYTES 17.2 % (15-50); MCH 32.5 pg (26.0-34.0); MCHC 34.7 g/dL (31.0-37.0); MCV 93.6 fL (80.0-100.0); MEAN PLATELET VOLUME 11.3 fL (7.4-10.4); MONOCYTES 3.7 % (2-11); NEUTROPHILS 78.1 % (40-80); PLATELET COUNT 377 10x3/uL (130-400); RBC 4.68 10x6/uL (4.00-5.40); RDW 14.6 % (11.5-14.5); WBC 14.2 10x3/uL (4.8-10.8)
[2017-10-16 04:53] LABS: ALBUMIN 3.4 g/dL (3.4-5.0); ALKALINE PHOSPHATASE 235 U/L (46-116); ALT (SGPT) 52 U/L (10-68); BILIRUBIN - TOTAL 0.45 mg/dL (0.2-1.3); CALC OSMOLALITY 261 mosm/kg (275-300); CALCIUM 8.6 mg/dL (8.5-10.1); CARBON DIOXIDE 19.3 mmol/L (21.0-32.0); CHLORIDE - SERUM 100 mmol/L (98-107); CREATININE - SERUM 0.7 mg/dL (0.6-1.3); SODIUM 130 mmol/L (136-145); UREA NITROGEN 8 mg/dL (7-18); eGFR NON AFRICAN AMERICAN > 90 mL/min (90-120)
[2017-10-16 04:57] LABS: GLUCOSE 145 mg/dL (74-106)
[2017-10-16 04:59] LABS: POTASSIUM - SERUM 2.9 mmol/L (3.5-5.1)
[2017-10-16 05:35] LABS: APPEARANCE CLEAR (CLEAR); BILIRUBIN NEGATIVE (NEGATIVE); COLOR YELLOW (YELLOW); GLUCOSE NEGATIVE (NEGATIVE); KETONE NEGATIVE (NEGATIVE); NITRITE NEGATIVE (NEGATIVE); PROTEIN TRACE mg/dL (NEGATIVE); SPECIFIC GRAVITY 1.005 (1.005-1.020); UROBILINOGEN NORMAL (NORMAL); WHITE CELLS - URINE 0-5 /hpf (0-5)
== END 2017-10-16 08:21 | disposition home or self-care (01) ==
LOC: D.ER 04:03
PROVIDERS: Family Medicine
DX: S22.42XA Multiple fractures of ribs, left side, initial encounter for closed fracture (principal); W22.8XXA Striking against or struck by other objects, initial encounter; Y93.89 Activity, other specified; Y92.013 Bedroom of single-family (private) house as the place of occurrence of the external cause; E87.6 Hypokalemia

== ENCOUNTER 2017-10-18 17:19 | Emergency (ER) | payer OTHER, MEDICAID ==
[2017-09-25 10:55] VITALS: BMI 19.4
[2017-10-18 18:39] LABS: BASOPHILS 0.3 % (0-2); HEMATOCRIT 36.2 % (36.0-48.0); IMMATURE GRANULOCYTES 0.3 % (0-5); LYMPHOCYTES 34.6 % (15-50); MCH 31.1 pg (26.0-34.0); MCHC 33.1 g/dL (31.0-37.0); MCV 93.8 fL (80.0-100.0); MEAN PLATELET VOLUME 11.3 fL (7.4-10.4); MONOCYTES 5.7 % (2-11); NEUTROPHILS 57.1 % (40-80); PLATELET COUNT 344 10x3/uL (130-400); RBC 3.86 10x6/uL (4.00-5.40)
[2017-10-18 19:02] LABS: ALBUMIN 2.6 g/dL (3.4-5.0); ALKALINE PHOSPHATASE 162 U/L (46-116); ALT (SGPT) 33 U/L (10-68); BILIRUBIN - TOTAL 0.43 mg/dL (0.2-1.3); CALC OSMOLALITY 281 mosm/kg (275-300); CALCIUM 7.7 mg/dL (8.5-10.1); CARBON DIOXIDE 21.8 mmol/L (21.0-32.0); CHLORIDE - SERUM 108 mmol/L (98-107); CREATININE - SERUM 0.6 mg/dL (0.6-1.3); GLUCOSE 89 mg/dL (74-106); PROTEIN - SERUM 5.7 g/dL (6.4-8.2); SODIUM 143 mmol/L (136-145); UREA NITROGEN 7 mg/dL (7-18); eGFR NON AFRICAN AMERICAN > 90 mL/min (90-120)
[2017-10-18 19:04] LABS: POTASSIUM - SERUM 2.1 mmol/L (3.5-5.1)
[2017-10-18 19:07] LABS: APPEARANCE CLEAR (CLEAR); BILIRUBIN NEGATIVE (NEGATIVE); COLOR STRAW (YELLOW); GLUCOSE NEGATIVE (NEGATIVE); KETONE NEGATIVE (NEGATIVE); NITRITE NEGATIVE (NEGATIVE); PROTEIN NEGATIVE (NEGATIVE); SPECIFIC GRAVITY 1.005 (1.005-1.020); UROBILINOGEN NORMAL (NORMAL)
== END 2017-10-18 22:12 | disposition home or self-care (01) ==
LOC: D.ER 17:19
PROVIDERS: Physician Assistant
DX: E87.6 Hypokalemia (principal); R42 Dizziness and giddiness; S22.42XG Multiple fractures of ribs, left side, subsequent encounter for fracture with delayed healing; X58.XXXD Exposure to other specified factors, subsequent encounter

== ENCOUNTER 2017-10-19 04:50 | Inpatient (IN) | payer OTHER, MEDICAID ==
[~2017-10-19] VITALS: Ht 162.6 cm; Wt 53.6 kg
[2017-10-19 05:37] LABS: BASOPHILS 0.6 % (0-2); EOSINOPHILS 1.5 % (0-7); HEMATOCRIT 35.2 % (36.0-48.0); HEMOGLOBIN 11.6 g/dL (12-16); IMMATURE GRANULOCYTES 0.2 % (0-5); LYMPHOCYTES 31.5 % (15-50); MCV 94.1 fL (80.0-100.0); MEAN PLATELET VOLUME 10.5 fL (7.4-10.4); MONOCYTES 4.4 % (2-11); NEUTROPHILS 61.8 % (40-80); PLATELET COUNT 324 10x3/uL (130-400); RBC 3.74 10x6/uL (4.00-5.40); RDW 15.1 % (11.5-14.5)
[2017-10-19 05:54] LABS: ALBUMIN 2.9 g/dL (3.4-5.0); ALKALINE PHOSPHATASE 174 U/L (46-116); ALT (SGPT) 29 U/L (10-68); CARBON DIOXIDE 23.4 mmol/L (21.0-32.0); CHLORIDE - SERUM 109 mmol/L (98-107); CREATINE KINASE 31 UL (21-215); GLUCOSE 105 mg/dL (74-106); MAGNESIUM - SERUM 1.6 mg/dL (1.8-2.4); PROTEIN - SERUM 6.2 g/dL (6.4-8.2); SODIUM 141 mmol/L (136-145); TROPONIN-I < 0.017 ng/mL (0.000-0.060)
[2017-10-19 06:03] LABS: CALC OSMOLALITY 277 mosm/kg (275-300); CREATININE - SERUM 0.8 mg/dL (0.6-1.3); UREA NITROGEN 3 mg/dL (7-18); eGFR NON AFRICAN AMERICAN 78 mL/min (90-120)
[2017-10-19 06:04] LABS: POTASSIUM - SERUM 2.1 mmol/L (3.5-5.1)
[2017-10-19 06:29] LABS: APPEARANCE HAZY (CLEAR); BILIRUBIN NEGATIVE (NEGATIVE); COLOR COLORLESS (YELLOW); GLUCOSE NEGATIVE (NEGATIVE); KETONE NEGATIVE (NEGATIVE); NITRITE NEGATIVE (NEGATIVE); PROTEIN NEGATIVE (NEGATIVE); SPECIFIC GRAVITY 1.005 (1.005-1.020); UROBILINOGEN NORMAL (NORMAL)
[2017-10-19 10:56] VITALS: BP 137/92; Ht 162.6 cm; Wt 53.6 kg
[2017-10-19 15:38] VITALS: BP 114/80
[2017-10-19 20:00] VITALS: BP 97/70
[2017-10-20 01:00] VITALS: BP 91/65
[2017-10-20 04:00] VITALS: BP 91/64
[2017-10-20 05:27] LABS: BASOPHILS 0.4 % (0-2); EOSINOPHILS 2.9 % (0-7); HEMATOCRIT 33.3 % (36.0-48.0); HEMOGLOBIN 10.9 g/dL (12-16); IMMATURE GRANULOCYTES 0.3 % (0-5); MCH 31.4 pg (26.0-34.0); MCHC 32.7 g/dL (31.0-37.0); MEAN PLATELET VOLUME 10.6 fL (7.4-10.4); NEUTROPHILS 42.4 % (40-80); PLATELET COUNT 327 10x3/uL (130-400); RBC 3.47 10x6/uL (4.00-5.40); RDW 15.6 % (11.5-14.5); WBC 7.5 10x3/uL (4.8-10.8)
[2017-10-20 05:49] LABS: ALBUMIN 2.3 g/dL (3.4-5.0); ALKALINE PHOSPHATASE 140 U/L (46-116); ALT (SGPT) 22 U/L (10-68); CALCIUM 7.6 mg/dL (8.5-10.1); CARBON DIOXIDE 28.4 mmol/L (21.0-32.0); CHLORIDE - SERUM 109 mmol/L (98-107); CREATININE - SERUM 0.6 mg/dL (0.6-1.3); GLUCOSE 74 mg/dL (74-106); MAGNESIUM - SERUM 1.7 mg/dL (1.8-2.4); PHOSPHOROUS 3.4 mg/dL (2.5-4.9); PROTEIN - SERUM 5.1 g/dL (6.4-8.2); SODIUM 145 mmol/L (136-145); eGFR NON AFRICAN AMERICAN > 90 mL/min (90-120)
[2017-10-20 05:56] LABS: CALC OSMOLALITY 284 mosm/kg (275-300); POTASSIUM - SERUM 2.5 mmol/L (3.5-5.1); UREA NITROGEN 4 mg/dL (7-18)
[2017-10-20 10:03] VITALS: BP 89/59
[2017-10-20 12:04] VITALS: BP 95/69
[2017-10-20 18:11] VITALS: BP 82/54
[2017-10-20 20:41] VITALS: BP 96/64
[2017-10-21 01:00] VITALS: BP 83/57
[2017-10-21 04:00] VITALS: BP 97/68
[2017-10-21 05:03] LABS: BASOPHILS 0.5 % (0-2); EOSINOPHILS 2.4 % (0-7); HEMATOCRIT 34.2 % (36.0-48.0); HEMOGLOBIN 11.1 g/dL (12-16); IMMATURE GRANULOCYTES 0.4 % (0-5); LYMPHOCYTES 42.4 % (15-50); MCH 31.4 pg (26.0-34.0); MCHC 32.5 g/dL (31.0-37.0); MCV 96.9 fL (80.0-100.0); MEAN PLATELET VOLUME 10.6 fL (7.4-10.4); MONOCYTES 6.3 % (2-11); PLATELET COUNT 321 10x3/uL (130-400); RBC 3.53 10x6/uL (4.00-5.40); RDW 15.9 % (11.5-14.5); WBC 8.3 10x3/uL (4.8-10.8)
[2017-10-21 05:32] LABS: ALBUMIN 2.1 g/dL (3.4-5.0); ALKALINE PHOSPHATASE 147 U/L (46-116); ALT (SGPT) 17 U/L (10-68); CALCIUM 7.6 mg/dL (8.5-10.1); CARBON DIOXIDE 25.9 mmol/L (21.0-32.0); CHLORIDE - SERUM 107 mmol/L (98-107); CREATININE - SERUM 0.7 mg/dL (0.6-1.3); GLUCOSE 76 mg/dL (74-106); MAGNESIUM - SERUM 1.7 mg/dL (1.8-2.4); PHOSPHOROUS 2.9 mg/dL (2.5-4.9); PROTEIN - SERUM 4.9 g/dL (6.4-8.2); SODIUM 143 mmol/L (136-145); eGFR NON AFRICAN AMERICAN > 90 mL/min (90-120)
[2017-10-21 05:34] LABS: CALC OSMOLALITY 282 mosm/kg (275-300); UREA NITROGEN 10 mg/dL (7-18)
[2017-10-21 05:36] LABS: BILIRUBIN - TOTAL 0.05 mg/dL (0.2-1.3); POTASSIUM - SERUM 2.6 mmol/L (3.5-5.1)
[2017-10-21 07:24] VITALS: BP 90/64
[2017-10-21 11:43] VITALS: BP 93/78
[2017-10-21 16:39] VITALS: BP 100/70
[2017-10-21 21:48] VITALS: BP 98/63
[2017-10-22 01:00] VITALS: BP 96/48
[2017-10-22 04:00] VITALS: BP 104/64
[2017-10-22 04:16] LABS: BASOPHILS 0.5 % (0-2); EOSINOPHILS 2.7 % (0-7); IMMATURE GRANULOCYTES 0.2 % (0-5); LYMPHOCYTES 50.4 % (15-50); MCH 31.3 pg (26.0-34.0); MCHC 32.4 g/dL (31.0-37.0); MCV 96.9 fL (80.0-100.0); MEAN PLATELET VOLUME 10.7 fL (7.4-10.4); MONOCYTES 7.2 % (2-11); PLATELET COUNT 315 10x3/uL (130-400); RBC 3.51 10x6/uL (4.00-5.40); RDW 15.7 % (11.5-14.5); WBC 8.1 10x3/uL (4.8-10.8)
[2017-10-22 04:32] LABS: ALBUMIN 2.3 g/dL (3.4-5.0); ALKALINE PHOSPHATASE 132 U/L (46-116); ALT (SGPT) 18 U/L (10-68); CALC OSMOLALITY 283 mosm/kg (275-300); CALCIUM 7.7 mg/dL (8.5-10.1); CHLORIDE - SERUM 107 mmol/L (98-107); CREATININE - SERUM 0.6 mg/dL (0.6-1.3); GLUCOSE 87 mg/dL (74-106); PHOSPHOROUS 3.2 mg/dL (2.5-4.9); POTASSIUM - SERUM 3.3 mmol/L (3.5-5.1); PROTEIN - SERUM 5.2 g/dL (6.4-8.2); SODIUM 144 mmol/L (136-145); UREA NITROGEN 8 mg/dL (7-18); eGFR NON AFRICAN AMERICAN > 90 mL/min (90-120)
[2017-10-22 04:41] LABS: BILIRUBIN - TOTAL 0.02 mg/dL (0.2-1.3)
[2017-10-22 08:36] VITALS: BP 101/75
[2017-10-22 11:32] VITALS: BP 90/63
[2017-10-22 15:51] VITALS: BP 104/75
[2017-10-22 20:05] VITALS: BP 93/64
[2017-10-23 00:38] VITALS: BP 104/70
[2017-10-23 04:00] VITALS: BP 107/59
[2017-10-23 05:52] LABS: BASOPHILS 0.4 % (0-2); EOSINOPHILS 2.5 % (0-7); HEMATOCRIT 37.4 % (36.0-48.0); IMMATURE GRANULOCYTES 0.4 % (0-5); LYMPHOCYTES 44.1 % (15-50); MCH 31.7 pg (26.0-34.0); MCHC 32.1 g/dL (31.0-37.0); MCV 98.7 fL (80.0-100.0); MEAN PLATELET VOLUME 11.5 fL (7.4-10.4); MONOCYTES 6.9 % (2-11); NEUTROPHILS 45.7 % (40-80); PLATELET COUNT 321 10x3/uL (130-400); RBC 3.79 10x6/uL (4.00-5.40); RDW 16.2 % (11.5-14.5)
[2017-10-23 06:00] LABS: WBC 10.7 10x3/uL (4.8-10.8)
[2017-10-23 06:12] LABS: ALBUMIN 2.7 g/dL (3.4-5.0); ALKALINE PHOSPHATASE 161 U/L (46-116); ALT (SGPT) 17 U/L (10-68); CALC OSMOLALITY 284 mosm/kg (275-300); CALCIUM 8.4 mg/dL (8.5-10.1); CARBON DIOXIDE 27.7 mmol/L (21.0-32.0); CHLORIDE - SERUM 109 mmol/L (98-107); CREATININE - SERUM 0.6 mg/dL (0.6-1.3); GLUCOSE 83 mg/dL (74-106); POTASSIUM - SERUM 3.9 mmol/L (3.5-5.1); PROTEIN - SERUM 5.9 g/dL (6.4-8.2); SODIUM 144 mmol/L (136-145); UREA NITROGEN 9 mg/dL (7-18); eGFR NON AFRICAN AMERICAN > 90 mL/min (90-120)
[2017-10-23 06:16] LABS: PHOSPHOROUS 4.4 mg/dL (2.5-4.9)
[2017-10-23 08:04] VITALS: BP 103/73
[2017-10-23 11:22] VITALS: BP 100/65
[2017-10-23] MEDS ORDERED: ALDACTONE25 MG PO (11:43)
== END 2017-10-23 14:16 | disposition home or self-care (01) | DRG 641 ==
LOC: D.ER 04:50 → D.M2 06:23 → D.EDHOLD 06:23 → D.M2 10:30
PROVIDERS: Emergency Medicine; Family Medicine
DX: R63.1 Polydipsia (principal); S22.42XA Multiple fractures of ribs, left side, initial encounter for closed fracture; F41.8 Other specified anxiety disorders; G89.29 Other chronic pain; E87.6 Hypokalemia; E83.42 Hypomagnesemia; Z86.73 Personal history of transient ischemic attack (TIA), and cerebral infarction without residual deficits; W19.XXXA Unspecified fall, initial encounter

== ENCOUNTER 2017-10-27 05:39 | Emergency (ER) | payer OTHER, MEDICAID ==
[2017-10-19 10:56] VITALS: BMI 18.0
[~2017-10-27 05:39] MED LIST changes: +ALDACTONE25 MG PO
[2017-10-27 07:33] LABS: BASOPHILS 0.6 % (0-2); EOSINOPHILS 0.9 % (0-7); HEMATOCRIT 39.4 % (36.0-48.0); HEMOGLOBIN 12.5 g/dL (12-16); IMMATURE GRANULOCYTES 0.4 % (0-5); LYMPHOCYTES 30.4 % (15-50); MCH 31.3 pg (26.0-34.0); MCHC 31.7 g/dL (31.0-37.0); MCV 98.7 fL (80.0-100.0); MEAN PLATELET VOLUME 10.7 fL (7.4-10.4); MONOCYTES 6.1 % (2-11); NEUTROPHILS 61.6 % (40-80); PLATELET COUNT 333 10x3/uL (130-400); RBC 3.99 10x6/uL (4.00-5.40); RDW 15.5 % (11.5-14.5); WBC 9.6 10x3/uL (4.8-10.8)
[2017-10-27 08:02] LABS: ALBUMIN 3.3 g/dL (3.4-5.0); ALKALINE PHOSPHATASE 170 U/L (46-116); ALT (SGPT) 27 U/L (10-68); CALC OSMOLALITY 273 mosm/kg (275-300); CALCIUM 8.4 mg/dL (8.5-10.1); CARBON DIOXIDE 17.9 mmol/L (21.0-32.0); CHLORIDE - SERUM 108 mmol/L (98-107); CREATININE - SERUM 0.6 mg/dL (0.6-1.3); GLUCOSE 89 mg/dL (74-106); POTASSIUM - SERUM 4.3 mmol/L (3.5-5.1); PROTEIN - SERUM 6.6 g/dL (6.4-8.2); SODIUM 139 mmol/L (136-145); UREA NITROGEN 3 mg/dL (7-18); eGFR NON AFRICAN AMERICAN > 90 mL/min (90-120)
[2017-10-27 08:16] LABS: LIPASE 262 U/L (73-393); MAGNESIUM - SERUM 1.8 mg/dL (1.8-2.4); THYROID STIMULATING HORMONE 0.74 uIU/mL (0.36-3.74)
[2017-10-27 08:20] LABS: C-REACTIVE PROTEIN < 0.2 mg/dL (0.0-0.9)
== END 2017-10-27 08:43 | disposition home or self-care (01) ==
LOC: D.ER 05:39
PROVIDERS: Family Medicine
DX: R07.81 Pleurodynia (principal); Z91.81 History of falling; I44.4 Left anterior fascicular block

== ENCOUNTER 2017-11-01 10:35 | Emergency (ER) | payer OTHER, MEDICAID ==
[2017-10-19 10:56] VITALS: BMI 18.0
[2017-12-22] MEDS ORDERED: HYDROCODONE-APA1 TAB PO (08:22)
== END 2017-11-01 11:40 | disposition home or self-care (01) ==
LOC: D.ER 10:35
DX: S73.102A Unspecified sprain of left hip, initial encounter (principal); W01.0XXA Fall on same level from slipping, tripping and stumbling without subsequent striking against object, initial encounter; Y93.89 Activity, other specified; Y92.019 Unspecified place in single-family (private) house as the place of occurrence of the external cause; S80.02XA Contusion of left knee, initial encounter

== ENCOUNTER 2017-11-09 17:55 | Emergency (ER) | payer OTHER, MEDICAID ==
[~2017-11-09] VITALS: Ht 162.6 cm; Wt 47.7 kg
[2017-11-09 17:57] VITALS: Ht 162.6 cm; Wt 47.7 kg
[2017-11-09 20:41] VITALS: BP 99/75
[2017-12-22] MEDS ORDERED: HYDROCODONE-APA1 TAB PO (08:22)
== END 2017-11-09 20:38 | disposition home or self-care (01) ==
LOC: D.ER 17:55
DX: S20.212A Contusion of left front wall of thorax, initial encounter (principal); W01.0XXA Fall on same level from slipping, tripping and stumbling without subsequent striking against object, initial encounter; Y93.89 Activity, other specified; Y92.019 Unspecified place in single-family (private) house as the place of occurrence of the external cause

== ENCOUNTER 2017-11-09 21:43 | Inpatient (IN) | payer OTHER, MEDICAID ==
[~2017-11-09] VITALS: Ht 162.6 cm; Wt 48.5 kg
--- NOTE | ~2017-11-09 | OP ---
PATIENT NAME: WILLIAM BRYANT MEDICAL RECORD: [id number] :[birth year] LOCATION:D.MS Phillips2227 ADMISSION DATE:11/10/17 SURGEON: FELIPE CAPONE MD DATE OF OPERATION: 11/11/2017 PREOPERATIVE DIAGNOSES: 1. Right distal radius fracture. 2. Acute carpal tunnel syndrome. POSTOPERATIVE DIAGNOSES: 1. Right distal radius fracture. 2. Acute carpal tunnel syndrome. PROCEDURES: 1. Open reduction and internal fixation of right distal radius fracture. 2. Carpal tunnel release. SURGEON: Felipe Capone MD ANESTHESIA: General. INTRAOPERATIVE COMPLICATIONS: None. SUMMARY OF PATHOLOGIC FINDINGS: The patient had obviously fractured this prior as she had evidence of a healed fracture both on radiographs as well as at the time of surgical intervention. The anatomy was restored along the volar tilt with a VariAx volar plate from [employer]. OPERATIVE SUMMARY IN DETAIL: After obtaining the appropriate preoperative orthopaedic surgery consent as well as anesthetic consultation, evaluation, and clearance, the patient was brought to the operating room and placed on the operating table in the supine position. After adequate general laryngeal mask airway was administered, tourniquet was placed about the proximal aspect of the right upper extremity. Right upper extremity was then prepped and draped in routine sterile fashion. Arm was elevated and exsanguinated, and tourniquet was inflated to 250 mmHg. A curvilinear incision was made in keeping with volar Dayday approach to include the palmar aspect for carpal tunnel release. Incision was then taken down to the transverse carpal ligament. A small incision was made. Median nerve was identified. The entire transverse carpal ligament was incised. Dissection was then carried down to flexor carpal radialis and deep. The median nerve and wrist flexors were then gently retracted to expose the wrist fracture itself. With good exposure of the wrist fracture after having already done a closed reduction, plate was then brought in and provisionally pinned into place under fluoroscopy. Serial and sequential drill and fill technique was utilized to stabilize the fracture. Final AP and lateral radiographs were submitted for final radiologist's review. Wound was then copiously irrigated, closed with 2-0 Vicryl followed by 4-0 Prolene in a running fashion. Tourniquet was deflated. Sterile dressings were applied. A volar splint was applied. The patient was awakened and taken to the recovery room in stable condition. All final needle and sponge counts were correct. TRANSINT:[id number] Voice Confirmation ID: [id number] DOCUMENT ID: [id number] OPERATIVE REPORT [id number] WILLIAM BRYANT MD, FELIPE HADDAD at 0857 CC: [id number] DICTATION DATE: 11/11/171656 KETTLE CLEANER: 11/11/17 1853 ADM IN [place] [address] [place] [address]
[2017-11-09 23:18] LABS: BASOPHILS 0.2 % (0-2); EOSINOPHILS 2.1 % (0-7); HEMATOCRIT 32.4 % (36.0-48.0); HEMOGLOBIN 10.6 g/dL (12-16); IMMATURE GRANULOCYTES 0.3 % (0-5); LYMPHOCYTES 25.7 % (15-50); MCH 31.2 pg (26.0-34.0); MCHC 32.7 g/dL (31.0-37.0); MCV 95.3 fL (80.0-100.0); MONOCYTES 6.4 % (2-11); NEUTROPHILS 65.3 % (40-80); PLATELET COUNT 311 10x3/uL (130-400); RDW 16.3 % (11.5-14.5); WBC 8.6 10x3/uL (4.8-10.8)
[2017-11-09 23:27] LABS: APTT 31.7 SECONDS (22.8-39.4); INR 1.06 (0.85-1.17); PROTIME 13.4 SECONDS (11.6-15.0)
[2017-11-09 23:31] LABS: ALBUMIN 2.3 g/dL (3.4-5.0); ALKALINE PHOSPHATASE 150 U/L (46-116); ALT (SGPT) 16 U/L (10-68); CALC OSMOLALITY 282 mosm/kg (275-300); CALCIUM 7.5 mg/dL (8.5-10.1); CARBON DIOXIDE 23.9 mmol/L (21.0-32.0); CHLORIDE - SERUM 112 mmol/L (98-107); CREATININE - SERUM 0.5 mg/dL (0.6-1.3); GLUCOSE 88 mg/dL (74-106); PROTEIN - SERUM 5.4 g/dL (6.4-8.2); SODIUM 144 mmol/L (136-145); UREA NITROGEN 4 mg/dL (7-18); eGFR NON AFRICAN AMERICAN > 90 mL/min (90-120)
[2017-11-09 23:33] LABS: POTASSIUM - SERUM 2.9 mmol/L (3.5-5.1)
[2017-11-10] VITALS (7 sets, daily range): BP systolic 108–132; BP diastolic 51–77; Ht 162.6 cm; Wt 48.5 kg
[2017-11-10 00:10] LABS: APPEARANCE CLOUDY (CLEAR); BILIRUBIN NEGATIVE (NEGATIVE); COLOR YELLOW (YELLOW); GLUCOSE NEGATIVE (NEGATIVE); KETONE NEGATIVE (NEGATIVE); NITRITE NEGATIVE (NEGATIVE); PROTEIN TRACE mg/dL (NEGATIVE); UROBILINOGEN NORMAL (NORMAL)
[2017-11-10 00:12] LABS: EPITHELIAL CELLS 0-5 /hpf (0-5); RED CELLS - URINE 0-5 /hpf (0-5)
[2017-11-10 00:13] LABS: BACTERIA MODERATE /hpf (NONE SEEN)
[2017-11-10 06:37] LABS: BASOPHILS 0.4 % (0-2); EOSINOPHILS 2.1 % (0-7); HEMATOCRIT 35.9 % (36.0-48.0); HEMOGLOBIN 11.5 g/dL (12-16); IMMATURE GRANULOCYTES 0.4 % (0-5); LYMPHOCYTES 32.9 % (15-50); MCV 96.8 fL (80.0-100.0); MEAN PLATELET VOLUME 10.3 fL (7.4-10.4); MONOCYTES 6.7 % (2-11); NEUTROPHILS 57.5 % (40-80); PLATELET COUNT 304 10x3/uL (130-400); RBC 3.71 10x6/uL (4.00-5.40); RDW 16.4 % (11.5-14.5); WBC 10.7 10x3/uL (4.8-10.8)
[2017-11-10 07:00] LABS: ALBUMIN 2.6 g/dL (3.4-5.0); ALKALINE PHOSPHATASE 163 U/L (46-116); ALT (SGPT) 19 U/L (10-68); CALC OSMOLALITY 282 mosm/kg (275-300); CALCIUM 7.8 mg/dL (8.5-10.1); CARBON DIOXIDE 26.2 mmol/L (21.0-32.0); CHLORIDE - SERUM 109 mmol/L (98-107); CREATININE - SERUM 0.5 mg/dL (0.6-1.3); GLUCOSE 85 mg/dL (74-106); MAGNESIUM - SERUM 1.6 mg/dL (1.8-2.4); PROTEIN - SERUM 5.8 g/dL (6.4-8.2); SODIUM 144 mmol/L (136-145); UREA NITROGEN 3 mg/dL (7-18); eGFR NON AFRICAN AMERICAN > 90 mL/min (90-120)
[2017-11-11 00:11] VITALS: BP 125/84
[2017-11-11 04:07] VITALS: BP 119/71
[2017-11-11 05:01] LABS: BASOPHILS 0.3 % (0-2); EOSINOPHILS 2.6 % (0-7); HEMATOCRIT 35.5 % (36.0-48.0); IMMATURE GRANULOCYTES 0.4 % (0-5); LYMPHOCYTES 25.9 % (15-50); MCH 30.3 pg (26.0-34.0); MCV 97.8 fL (80.0-100.0); MEAN PLATELET VOLUME 10.7 fL (7.4-10.4); MONOCYTES 7.1 % (2-11); NEUTROPHILS 63.7 % (40-80); PLATELET COUNT 339 10x3/uL (130-400); RBC 3.63 10x6/uL (4.00-5.40); RDW 16.4 % (11.5-14.5); WBC 10.2 10x3/uL (4.8-10.8)
[2017-11-11 05:21] LABS: ALBUMIN 2.6 g/dL (3.4-5.0); ALKALINE PHOSPHATASE 177 U/L (46-116); ALT (SGPT) 20 U/L (10-68); CALCIUM 7.7 mg/dL (8.5-10.1); CARBON DIOXIDE 21.6 mmol/L (21.0-32.0); CHLORIDE - SERUM 112 mmol/L (98-107); CREATININE - SERUM 0.6 mg/dL (0.6-1.3); GLUCOSE 77 mg/dL (74-106); PHOSPHOROUS 3.5 mg/dL (2.5-4.9); PROTEIN - SERUM 5.9 g/dL (6.4-8.2); SODIUM 143 mmol/L (136-145); eGFR NON AFRICAN AMERICAN > 90 mL/min (90-120)
[2017-11-11 05:25] LABS: CALC OSMOLALITY 279 mosm/kg (275-300); POTASSIUM - SERUM 3.9 mmol/L (3.5-5.1); UREA NITROGEN 2 mg/dL (7-18)
[2017-11-11 08:01] VITALS: BP 108/100
[2017-11-11 12:33] VITALS: BP 120/69
[2017-11-11 17:30] VITALS: BP 97/61
[2017-11-11 21:20] VITALS: BP 111/85
[2017-11-12 00:38] VITALS: BP 136/83
[2017-11-12 05:04] VITALS: BP 141/79
[2017-11-12 08:43] VITALS: BP 127/80
[2017-11-12] MEDS ORDERED: PERCOCET 10/3251 TA1 PO (12:59)
[2017-11-12 13:00] VITALS: BP 118/61
[2017-12-22] MEDS ORDERED: HYDROCODONE-APA1 TAB PO (08:22)
== END 2017-11-12 15:19 | disposition home health service (06) | DRG 512 ==
LOC: D.ER 21:43 → D.EDHOLD 11-10 00:07 → D.MS 11-10 00:07
PROVIDERS: Family Medicine; Orthopaedic Surgery
PROC: 0PSH04Z Reposition Right Radius with Internal Fixation Device, Open Approach (ICD-10-PCS; principal; 2017-11-11 13:00)
PROC: 01N50ZZ Release Median Nerve, Open Approach (ICD-10-PCS; 2017-11-11 13:00)
DX: S52.501A Unspecified fracture of the lower end of right radius, initial encounter for closed fracture (principal); W01.0XXA Fall on same level from slipping, tripping and stumbling without subsequent striking against object, initial encounter; G56.01 Carpal tunnel syndrome, right upper limb

== ENCOUNTER 2017-11-16 05:10 | Emergency (ER) | payer OTHER, MEDICAID ==
[~2017-11-16] VITALS: Ht 162.6 cm; Wt 48.5 kg
[~2017-11-16 05:10] MED LIST changes: +PERCOCET 10/3251 TA1 PO
[2017-11-16 05:11] VITALS: Ht 162.6 cm; Wt 48.5 kg
[2017-11-16] MEDS ORDERED: K-TAB10 MEQ (05:16)
[2017-11-16] MEDS ORDERED: MAGNESIUM OXID500 MG (05:17)
[2017-11-16] MEDS ORDERED: K-PHOS NEUTRAL250 M1 (05:17)
[2017-11-16] MEDS ORDERED: FORTEO PEN20 MCG SQ (05:17)
[2017-11-16] MEDS ORDERED: PERCOCET 10/3251 TA1 PO (05:43)
[2017-11-16 06:17] LABS: BASOPHILS 0.5 % (0-2); EOSINOPHILS 1.5 % (0-7); HEMATOCRIT 37.7 % (36.0-48.0); HEMOGLOBIN 12.4 g/dL (12-16); IMMATURE GRANULOCYTES 0.3 % (0-5); LYMPHOCYTES 23.1 % (15-50); MCH 30.8 pg (26.0-34.0); MCHC 32.9 g/dL (31.0-37.0); MCV 93.5 fL (80.0-100.0); MEAN PLATELET VOLUME 10.2 fL (7.4-10.4); MONOCYTES 6.2 % (2-11); NEUTROPHILS 68.4 % (40-80); RBC 4.03 10x6/uL (4.00-5.40); RDW 15.6 % (11.5-14.5); WBC 6.6 10x3/uL (4.8-10.8)
[2017-11-16 06:19] LABS: PLATELET COUNT 412 10x3/uL (130-400)
[2017-11-16 06:37] LABS: CALC OSMOLALITY 278 mosm/kg (275-300); CALCIUM 8.5 mg/dL (8.5-10.1); CHLORIDE - SERUM 102 mmol/L (98-107); CREATININE - SERUM 0.5 mg/dL (0.6-1.3); GLUCOSE 93 mg/dL (74-106); POTASSIUM - SERUM 3.8 mmol/L (3.5-5.1); SODIUM 141 mmol/L (136-145); UREA NITROGEN 8 mg/dL (7-18); eGFR NON AFRICAN AMERICAN > 90 mL/min (90-120)
[2017-11-16] MEDS ORDERED: DILAUDID2 MG PO (06:47)
[2017-11-16 07:15] VITALS: BP 97/68
[2017-12-22] MEDS ORDERED: HYDROCODONE-APA1 TAB PO (08:22)
== END 2017-11-16 07:15 | disposition home or self-care (01) ==
LOC: D.ER 05:10
PROVIDERS: Emergency Medicine
DX: S60.211A Contusion of right wrist, initial encounter (principal); W19.XXXA Unspecified fall, initial encounter; Y93.89 Activity, other specified; Y92.019 Unspecified place in single-family (private) house as the place of occurrence of the external cause; Z86.79 Personal history of other diseases of the circulatory system; E11.9 Type 2 diabetes mellitus without complications

== ENCOUNTER → 2017-11-23 16:02 | Outpatient (CLI) | payer OTHER, MEDICAID ==
[2017-11-16 05:11] VITALS: BMI 18.3
[~2017-11-23 16:02] MED LIST changes: +DILAUDID2 MG PO; +K-PHOS NEUTRAL250 M1; +K-TAB10 MEQ; +MAGNESIUM OXID500 MG
[2017-11-23 16:56] LABS: ALBUMIN 2.9 g/dL (3.4-5.0); ALKALINE PHOSPHATASE 212 U/L (46-116); ALT (SGPT) 15 U/L (10-68); CALCIUM 7.7 mg/dL (8.5-10.1); CARBON DIOXIDE 21.3 mmol/L (21.0-32.0); CHLORIDE - SERUM 103 mmol/L (98-107); CREATININE - SERUM 0.7 mg/dL (0.6-1.3); PROTEIN - SERUM 6.1 g/dL (6.4-8.2); SODIUM 137 mmol/L (136-145); UREA NITROGEN 7 mg/dL (7-18); eGFR NON AFRICAN AMERICAN > 90 mL/min (90-120)
[2017-11-23 17:04] LABS: CALC OSMOLALITY 268 mosm/kg (275-300); GLUCOSE 53 mg/dL (74-106)
[2017-11-23 17:13] LABS: POTASSIUM - SERUM 2.3 mmol/L (3.5-5.1)
== END | disposition home or self-care (01) ==
LOC: D.LABREF 16:02
PROVIDERS: Family Medicine
DX: E87.6 Hypokalemia (principal)

== ENCOUNTER → 2017-11-24 18:52 | Outpatient (CLI) | payer OTHER, MEDICAID ==
[2017-11-16 05:11] VITALS: BMI 18.3
[2017-11-24 20:08] LABS: ALBUMIN 2.3 g/dL (3.4-5.0); ALKALINE PHOSPHATASE 188 U/L (46-116); ALT (SGPT) 18 U/L (10-68); CALCIUM 7.7 mg/dL (8.5-10.1); CARBON DIOXIDE 22.2 mmol/L (21.0-32.0); CHLORIDE - SERUM 107 mmol/L (98-107); CREATININE - SERUM 0.6 mg/dL (0.6-1.3); PROTEIN - SERUM 5.3 g/dL (6.4-8.2); SODIUM 139 mmol/L (136-145); eGFR NON AFRICAN AMERICAN > 90 mL/min (90-120)
[2017-11-24 20:12] LABS: CALC OSMOLALITY 272 mosm/kg (275-300); GLUCOSE 58 mg/dL (74-106); UREA NITROGEN 5 mg/dL (7-18)
[2017-11-24 20:27] LABS: BILIRUBIN - TOTAL 0.07 mg/dL (0.2-1.3); POTASSIUM - SERUM 2.8 mmol/L (3.5-5.1)
== END | disposition home or self-care (01) ==
LOC: D.LABREF 18:52
PROVIDERS: Orthopaedic Surgery
DX: E87.6 Hypokalemia (principal)

== ENCOUNTER → 2017-11-26 13:42 | Outpatient (CLI) | payer OTHER, MEDICAID ==
[2017-11-16 05:11] VITALS: BMI 18.3
[2017-11-26 14:45] LABS: ALBUMIN 2.5 g/dL (3.4-5.0); ALKALINE PHOSPHATASE 217 U/L (46-116); ALT (SGPT) 17 U/L (10-68); CALCIUM 8.5 mg/dL (8.5-10.1); CARBON DIOXIDE 21.3 mmol/L (21.0-32.0); CHLORIDE - SERUM 105 mmol/L (98-107); CREATININE - SERUM 0.5 mg/dL (0.6-1.3); PROTEIN - SERUM 6.1 g/dL (6.4-8.2); SODIUM 139 mmol/L (136-145); eGFR NON AFRICAN AMERICAN > 90 mL/min (90-120)
[2017-11-26 14:47] LABS: CALC OSMOLALITY 275 mosm/kg (275-300); GLUCOSE 100 mg/dL (74-106); UREA NITROGEN 7 mg/dL (7-18)
[2017-11-26 14:49] LABS: BILIRUBIN - TOTAL 0.09 mg/dL (0.2-1.3); POTASSIUM - SERUM 2.6 mmol/L (3.5-5.1)
== END | disposition home or self-care (01) ==
LOC: D.LABREF 13:42
PROVIDERS: Orthopaedic Surgery
DX: E87.6 Hypokalemia (principal)

== ENCOUNTER → 2017-11-29 18:29 | Outpatient (CLI) | payer OTHER, MEDICAID ==
[2017-11-16 05:11] VITALS: BMI 18.3
== END | disposition home or self-care (01) ==
LOC: D.LABREF 18:29
DX: E87.6 Hypokalemia (principal)

== ENCOUNTER 2017-11-30 13:28 | Emergency (ER) | payer OTHER, MEDICAID ==
[2017-11-16 05:11] VITALS: BMI 18.3
[2017-12-01] MEDS ORDERED: K-DUR20 MEQ PO (22:19)
[2017-12-22] MEDS ORDERED: HYDROCODONE-APA1 TAB PO (08:22)
== END 2017-11-30 14:00 | disposition left against medical advice (07) ==
LOC: D.ER 13:28
DX: E87.6 Hypokalemia (principal); F17.200 Nicotine dependence, unspecified, uncomplicated

== ENCOUNTER 2017-11-30 23:16 | Inpatient (IN) | payer OTHER, MEDICAID ==
[~2017-11-30] VITALS: Ht 162.6 cm; Wt 46.3 kg
--- NOTE | ~2017-11-30 | DS ---
PATIENT:WILLIAM BRYANT :[birth year] MEDICAL RECORD: [id number] DISCHARGE SUMMARY ADMISSION DATE: 12/01/17 DISCHARGE DATE: 12/02/17 This is a discharge dated 12/02/2017 from the inpatient hospital. DISCHARGE DIAGNOSES: 1. Hypokalemia. 2. Hypomagnesemia. 3. Hypophosphatemia. 4. Hyponatremia. 5. Weakness. 6. Osteoporosis. 7. Anxiety/depression. 8. Hypotension. 9. CVA by history. 10. Chronic pain. HOSPITAL COURSE: Full H&P is located elsewhere on the chart on this 57-year-old female who was admitted for evaluation of weakness and was found to have multiple electrolyte abnormalities. Electrolytes were managed by protocol. She was continued on appropriate home medications. Pain was managed with narcotics. Case management was involved for discharge planning. Her labs stabilized and she was considered stable for discharge on 12/02/2017. DISCHARGE MEDICATIONS: As per discharge medication reconciliation. DISCHARGE DISPOSITION: The patient was discharged home. She will continue her current diet and level of activity. She will follow up with home health that she has had previously and will be seen by [facility] house calls. At least 30 minutes was spent in this discharge activity. TRANSINT:[id number] Voice Confirmation ID: [id number] DOCUMENT ID: [id number] Dictated By: JOSE ROLDAN I have interviewed/examined the above patient and agree with these documented findings. GIANNI VEGA MD at 1549 at 1111 CC: [id number] DICTATION DATE: 12/19/17 1622 CUTTER AND PRESSER: 12/19/174 DIS IN 12/02/17 [facility] [address] [place] [address]
[2017-11-30 23:57] LABS: HEMATOCRIT 40.8 % (36.0-48.0); HEMOGLOBIN 13.9 g/dL (12-16); LYMPHOCYTES 30.2 % (15-50); MCH 30.6 pg (26.0-34.0); MCHC 34.1 g/dL (31.0-37.0); MCV 89.9 fL (80.0-100.0); MEAN PLATELET VOLUME 9.7 fL (7.4-10.4); NEUTROPHILS 63.7 % (40-80); PLATELET COUNT 492 10x3/uL (130-400); RBC 4.54 10x6/uL (4.00-5.40); RDW 16.1 % (11.5-14.5); WBC 14.1 10x3/uL (4.8-10.8)
[2017-12-01] VITALS (8 sets, daily range): BP systolic 94–129; BP diastolic 58–101; BMI 17.5
[2017-12-01 00:12] LABS: APPEARANCE CLEAR (CLEAR); BACTERIA FEW /hpf (NONE SEEN); BILIRUBIN NEGATIVE (NEGATIVE); COLOR YELLOW (YELLOW); EPITHELIAL CELLS 0-5 /hpf (0-5); GLUCOSE NEGATIVE (NEGATIVE); KETONE NEGATIVE (NEGATIVE); NITRITE NEGATIVE (NEGATIVE); PROTEIN NEGATIVE (NEGATIVE); RED CELLS - URINE NONE SEEN /hpf (0-5); SPECIFIC GRAVITY 1.005 (1.005-1.020); UROBILINOGEN NORMAL (NORMAL)
[2017-12-01 00:21] LABS: ALBUMIN 3.2 g/dL (3.4-5.0); ALKALINE PHOSPHATASE 234 U/L (46-116); ALT (SGPT) 17 U/L (10-68); BILIRUBIN - TOTAL 0.34 mg/dL (0.2-1.3); CALC OSMOLALITY 261 mosm/kg (275-300); CALCIUM 8.5 mg/dL (8.5-10.1); CARBON DIOXIDE 20.6 mmol/L (21.0-32.0); CHLORIDE - SERUM 99 mmol/L (98-107); CKMB 1.9 U/L (0.0-3.6); CREATINE KINASE 26 UL (21-215); CREATININE - SERUM 0.9 mg/dL (0.6-1.3); GLUCOSE 134 mg/dL (74-106); PROTEIN - SERUM 7.3 g/dL (6.4-8.2); SODIUM 131 mmol/L (136-145); UREA NITROGEN 5 mg/dL (7-18); eGFR NON AFRICAN AMERICAN 69 mL/min (90-120)
[2017-12-01 00:23] LABS: TROPONIN-I < 0.017 ng/mL (0.000-0.060)
[2017-12-01 00:28] LABS: POTASSIUM - SERUM 2.2 mmol/L (3.5-5.1)
[2017-12-01 11:36] LABS: ALBUMIN 2.8 g/dL (3.4-5.0); ALKALINE PHOSPHATASE 196 U/L (46-116); ALT (SGPT) 14 U/L (10-68); BASOPHILS 0.6 % (0-2); BILIRUBIN - TOTAL 0.22 mg/dL (0.2-1.3); CALC OSMOLALITY 272 mosm/kg (275-300); CALCIUM 8.3 mg/dL (8.5-10.1); CARBON DIOXIDE 22.4 mmol/L (21.0-32.0); CHLORIDE - SERUM 106 mmol/L (98-107); CREATININE - SERUM 0.7 mg/dL (0.6-1.3); EOSINOPHILS 1.8 % (0-7); GLUCOSE 103 mg/dL (74-106); HEMATOCRIT 36.5 % (36.0-48.0); HEMOGLOBIN 12.2 g/dL (12-16); IMMATURE GRANULOCYTES 0.4 % (0-5); LYMPHOCYTES 33.1 % (15-50); MAGNESIUM - SERUM 1.6 mg/dL (1.8-2.4); MCH 30.3 pg (26.0-34.0); MCHC 33.4 g/dL (31.0-37.0); MCV 90.6 fL (80.0-100.0); MEAN PLATELET VOLUME 9.8 fL (7.4-10.4); MONOCYTES 7.9 % (2-11); NEUTROPHILS 56.2 % (40-80); PLATELET COUNT 449 10x3/uL (130-400); PROTEIN - SERUM 6.2 g/dL (6.4-8.2); RBC 4.03 10x6/uL (4.00-5.40); RDW 15.4 % (11.5-14.5); SODIUM 138 mmol/L (136-145); UREA NITROGEN 3 mg/dL (7-18); WBC 12.7 10x3/uL (4.8-10.8); eGFR NON AFRICAN AMERICAN > 90 mL/min (90-120)
[2017-12-01 11:37] LABS: POTASSIUM - SERUM 2.5 mmol/L (3.5-5.1)
[2017-12-01] MEDS ORDERED: K-DUR20 MEQ PO (22:19)
[2017-12-02 04:00] VITALS: BP 95/59
[2017-12-02 06:16] LABS: BASOPHILS 0.4 % (0-2); EOSINOPHILS 3.3 % (0-7); HEMOGLOBIN 10.8 g/dL (12-16); IMMATURE GRANULOCYTES 0.3 % (0-5); LYMPHOCYTES 33.7 % (15-50); MCH 30.3 pg (26.0-34.0); MCHC 32.7 g/dL (31.0-37.0); MCV 92.4 fL (80.0-100.0); MEAN PLATELET VOLUME 10.4 fL (7.4-10.4); MONOCYTES 7.7 % (2-11); NEUTROPHILS 54.6 % (40-80); PLATELET COUNT 395 10x3/uL (130-400); RBC 3.57 10x6/uL (4.00-5.40); RDW 15.9 % (11.5-14.5)
[2017-12-02 06:26] LABS: WBC 9.3 10x3/uL (4.8-10.8)
[2017-12-02 06:46] LABS: ALBUMIN 2.4 g/dL (3.4-5.0); ALKALINE PHOSPHATASE 177 U/L (46-116); ALT (SGPT) 12 U/L (10-68); BILIRUBIN - TOTAL 0.12 mg/dL (0.2-1.3); CALCIUM 7.7 mg/dL (8.5-10.1); CHLORIDE - SERUM 111 mmol/L (98-107); GLUCOSE 82 mg/dL (74-106); MAGNESIUM - SERUM 2.2 mg/dL (1.8-2.4); PROTEIN - SERUM 5.3 g/dL (6.4-8.2); SODIUM 142 mmol/L (136-145)
[2017-12-02 06:47] LABS: CALC OSMOLALITY 278 mosm/kg (275-300); CREATININE - SERUM 0.5 mg/dL (0.6-1.3); POTASSIUM - SERUM 3.8 mmol/L (3.5-5.1); UREA NITROGEN 5 mg/dL (7-18); eGFR NON AFRICAN AMERICAN > 90 mL/min (90-120)
[2017-12-02 08:16] VITALS: BP 89/61
[2017-12-02 11:57] VITALS: BP 95/56
[2017-12-02 14:05] VITALS: Ht 162.6 cm; Wt 46.3 kg
[2017-12-02 15:37] VITALS: BP 96/61
[2017-12-22] MEDS ORDERED: HYDROCODONE-APA1 TAB PO (08:22)
== END 2017-12-02 18:15 | disposition home or self-care (01) | DRG 641 ==
LOC: D.ER 23:16 → D.EDHOLD 12-01 00:52 → OBSVTIME 12-01 00:52 → D.EDHOLD 12-01 00:52 → D.M2 12-01 19:42
PROVIDERS: Family Medicine
DX: E87.6 Hypokalemia (principal); N39.0 Urinary tract infection, site not specified; E87.1 Hypo-osmolality and hyponatremia; E83.39 Other disorders of phosphorus metabolism; I95.9 Hypotension, unspecified; K59.09 Other constipation; F41.9 Anxiety disorder, unspecified; F32.9 Major depressive disorder, single episode, unspecified; Z87.891 Personal history of nicotine dependence; Z85.3 Personal history of malignant neoplasm of breast; Z85.828 Personal history of other malignant neoplasm of skin; Z85.42 Personal history of malignant neoplasm of other parts of uterus; Z86.73 Personal history of transient ischemic attack (TIA), and cerebral infarction without residual deficits

== ENCOUNTER 2017-12-11 22:50 | Emergency (ER) | payer OTHER, MEDICAID ==
[~2017-12-11] VITALS: Ht 162.6 cm; Wt 45.5 kg
[2017-12-11 22:53] VITALS: Ht 162.6 cm; Wt 45.5 kg
[2017-12-12 00:40] LABS: HEMATOCRIT 43.7 % (36.0-48.0); HEMOGLOBIN 14.7 g/dL (12-16); LYMPHOCYTES 25.6 % (15-50); MCH 30.6 pg (26.0-34.0); MCHC 33.6 g/dL (31.0-37.0); MCV 90.9 fL (80.0-100.0); MEAN PLATELET VOLUME 9.7 fL (7.4-10.4); NEUTROPHILS 68.6 % (40-80); PLATELET COUNT 430 10x3/uL (130-400); RBC 4.81 10x6/uL (4.00-5.40); RDW 16.3 % (11.5-14.5); WBC 12.4 10x3/uL (4.8-10.8)
[2017-12-12 00:53] LABS: ALBUMIN 3.5 g/dL (3.4-5.0); ALKALINE PHOSPHATASE 236 U/L (46-116); ALT (SGPT) 22 U/L (10-68); CALC OSMOLALITY 258 mosm/kg (275-300); CALCIUM 8.7 mg/dL (8.5-10.1); CARBON DIOXIDE 15.4 mmol/L (21.0-32.0); CHLORIDE - SERUM 99 mmol/L (98-107); CREATININE - SERUM 0.8 mg/dL (0.6-1.3); GLUCOSE 122 mg/dL (74-106); PROTEIN - SERUM 7.8 g/dL (6.4-8.2); SODIUM 130 mmol/L (136-145); UREA NITROGEN 3 mg/dL (7-18); eGFR NON AFRICAN AMERICAN 78 mL/min (90-120)
[2017-12-12 00:56] LABS: POTASSIUM - SERUM 2.8 mmol/L (3.5-5.1)
[2017-12-12 03:14] VITALS: BP 135/64
[2017-12-22] MEDS ORDERED: HYDROCODONE-APA1 TAB PO (08:22)
== END 2017-12-12 03:15 | disposition home or self-care (01) ==
LOC: D.ER 22:50
PROVIDERS: Family Medicine
DX: E87.6 Hypokalemia (principal); E87.0 Hyperosmolality and hypernatremia; M79.631 Pain in right forearm; Z91.81 History of falling

== ENCOUNTER 2017-12-17 06:45 | Emergency (ER) | payer OTHER, MEDICAID ==
[~2017-12-17] VITALS: Ht 162.6 cm; Wt 47.7 kg
[2017-12-17 06:47] VITALS: Ht 162.6 cm; Wt 47.7 kg
[2017-12-17 07:21] LABS: BASOPHILS 0.4 % (0-2); EOSINOPHILS 0.7 % (0-7); HEMATOCRIT 41.1 % (36.0-48.0); HEMOGLOBIN 13.6 g/dL (12-16); IMMATURE GRANULOCYTES 0.3 % (0-5); MCH 30.6 pg (26.0-34.0); MCHC 33.1 g/dL (31.0-37.0); MCV 92.4 fL (80.0-100.0); MEAN PLATELET VOLUME 9.9 fL (7.4-10.4); NEUTROPHILS 66.6 % (40-80); PLATELET COUNT 444 10x3/uL (130-400); RBC 4.45 10x6/uL (4.00-5.40); WBC 11.9 10x3/uL (4.8-10.8)
[2017-12-17 07:44] LABS: CALC OSMOLALITY 267 mosm/kg (275-300); CALCIUM 8.3 mg/dL (8.5-10.1); CARBON DIOXIDE 19.1 mmol/L (21.0-32.0); CHLORIDE - SERUM 104 mmol/L (98-107); CREATININE - SERUM 0.6 mg/dL (0.6-1.3); GLUCOSE 93 mg/dL (74-106); SODIUM 136 mmol/L (136-145); UREA NITROGEN 2 mg/dL (7-18); eGFR NON AFRICAN AMERICAN > 90 mL/min (90-120)
[2017-12-17 07:45] LABS: POTASSIUM - SERUM 2.8 mmol/L (3.5-5.1)
[2017-12-17 08:12] VITALS: BP 154/101
[2017-12-22] MEDS ORDERED: HYDROCODONE-APA1 TAB PO (08:22)
== END 2017-12-17 08:29 | disposition home or self-care (01) ==
LOC: D.ER 06:45
PROVIDERS: Emergency Medicine
DX: E87.6 Hypokalemia (principal); M79.602 Pain in left arm

== ENCOUNTER 2017-12-22 13:26 | Observation (INO) | payer OTHER, MEDICAID ==
[~2017-12-22] VITALS: Ht 162.6 cm; Wt 47.7 kg
--- NOTE | ~2017-12-22 | OP ---
PATIENT NAME: WILLIAM BRYANT MEDICAL RECORD: [id number] :[birth year] LOCATION:D.MS Phillips2210 ADMISSION DATE:12/22/17 SURGEON: FELIPE CAPONE MD DATE OF OPERATION: 12/23/2017 PREOPERATIVE DIAGNOSIS: Recurrent right distal radius fracture. POSTOPERATIVE DIAGNOSIS: Recurrent right distal radius fracture. PROCEDURE: Revision open reduction internal fixation of right distal radius fracture. SURGEON: Felipe Capone MD ANESTHESIA: General. INTRAOPERATIVE COMPLICATIONS: None. SUMMARY OF PATHOLOGIC FINDINGS: The patient had fallen so violently after previous operation that she had actually displaced locking screws, which I have not seen before. However, radiographs taken prior to the surgery did show that they appear to have backed out. Radial tuberosity had displaced. This required alteration of the current internal fixation that is revision open reduction internal fixation. OPERATIVE SUMMARY IN DETAIL: After obtaining the appropriate preoperative orthopedic surgery consent as well as anesthetic consultation, evaluation and clearance, the patient was brought to the operating room and placed on the operating table in supine position. After general laryngeal mask airway was administered, tourniquet was placed on the proximal aspect of the right upper extremity. Right upper extremity was then prepped and draped in routine sterile fashion. The arm was elevated and exsanguinated, tourniquet was inflated to 250 mmHg. Previously utilized incision was taken down gently through the wrist. Median nerve was identified as were all the flexures. These were isolated and retracted throughout the rest of the case. The plate was exposed. The 2 screws that were loose were removed as was the third screw on the distal row. A large reduction forceps was then brought in to re-reduce the radial styloid and line up the articular surface. The screw from the second to distal row was then placed into the radial styloid with good firm hold. This resulted in good holding; however, for stabilization, a 4.0 cannulated screw was placed from the tip of the radial styloid to the dorsal ulnar cortex just past the plate. This was then advanced under fluoroscopy to help hold the entire radial styloid back into position. Final radiographs were submitted. This patient does have ulnar abutment after settling of the fracture from this second fall in minimal weeks; however, I am going to hold off on a radial shortening osteotomy depending on the patient's symptoms. If that is needed later, it can be done. Having completed the surgery, the wound was copiously irrigated, 2-0 Vicryl was used for closure along with 4-0 Prolene in a running fashion. Sterile dressings were applied. Tourniquet was deflated. A splint was applied. The patient was then awakened and taken to recovery room in stable condition. All final needle and sponge counts were correct. TRANSINT:[id number] Voice Confirmation ID: [id number] DOCUMENT ID: [id number] OPERATIVE REPORT [id number] WILLIAM BRYANT MD, FELIPE HADDAD at 1356 CC: [id number] DICTATION DATE: 12/23/17 1217 TOWER HOIST OPERATOR: 12/23/17 1233 ADM IN [place] [id number] [place] [address]
[2017-12-22 08:59] LABS: HEMATOCRIT 41.9 % (36.0-48.0); HEMOGLOBIN 14.8 g/dL (12-16); MCHC 35.3 g/dL (31.0-37.0); MCV 90.5 fL (80.0-100.0); MEAN PLATELET VOLUME 9.7 fL (7.4-10.4); RBC 4.63 10x6/uL (4.00-5.40); RDW 15.7 % (11.5-14.5); WBC 11.7 10x3/uL (4.8-10.8)
[2017-12-22] MEDS ORDERED: MAG-OX 400 MG400 MG PO (13:42)
[2017-12-22] MEDS ORDERED: VALIUM10 MG PO (13:44)
[2017-12-22 13:45] VITALS: BP 125/96; BMI 18.0
[2017-12-22 16:49] VITALS: BP 110/80
[2017-12-22 20:19] VITALS: BP 129/90
[2017-12-23 00:20] VITALS: BP 108/74
[2017-12-23 03:34] VITALS: BP 154/84
[2017-12-23 07:27] LABS: BASOPHILS 0.5 % (0-2); EOSINOPHILS 2.5 % (0-7); HEMATOCRIT 35.4 % (36.0-48.0); HEMOGLOBIN 11.9 g/dL (12-16); IMMATURE GRANULOCYTES 0.2 % (0-5); LYMPHOCYTES 45.2 % (15-50); MCH 30.7 pg (26.0-34.0); MCHC 33.6 g/dL (31.0-37.0); MCV 91.5 fL (80.0-100.0); NEUTROPHILS 43.6 % (40-80); PLATELET COUNT 387 10x3/uL (130-400); RBC 3.87 10x6/uL (4.00-5.40); RDW 16.1 % (11.5-14.5)
[2017-12-23 07:31] LABS: WBC 8.5 10x3/uL (4.8-10.8)
[2017-12-23 07:50] LABS: CALC OSMOLALITY 278 mosm/kg (275-300); CALCIUM 7.7 mg/dL (8.5-10.1); CARBON DIOXIDE 23.4 mmol/L (21.0-32.0); CHLORIDE - SERUM 109 mmol/L (98-107); CREATININE - SERUM 0.7 mg/dL (0.6-1.3); GLUCOSE 79 mg/dL (74-106); SODIUM 142 mmol/L (136-145); UREA NITROGEN 4 mg/dL (7-18); eGFR NON AFRICAN AMERICAN > 90 mL/min (90-120)
[2017-12-23 08:02] LABS: POTASSIUM - SERUM 3.8 mmol/L (3.5-5.1)
[2017-12-23 08:17] VITALS: Ht 162.6 cm; Wt 47.7 kg
[2017-12-23 08:33] VITALS: BP 89/67
[2017-12-23 13:14] VITALS: BP 90/61
[2017-12-23 20:04] VITALS: BP 98/75
[2017-12-24] VITALS: BP 96/57
[2017-12-24 04:59] VITALS: BP 88/50; BP 90/53
[2017-12-24 06:25] LABS: BASOPHILS 0.1 % (0-2); EOSINOPHILS 0.4 % (0-7); HEMATOCRIT 31.7 % (36.0-48.0); HEMOGLOBIN 10.3 g/dL (12-16); IMMATURE GRANULOCYTES 0.3 % (0-5); LYMPHOCYTES 25.3 % (15-50); MCH 30.3 pg (26.0-34.0); MCHC 32.5 g/dL (31.0-37.0); MCV 93.2 fL (80.0-100.0); MEAN PLATELET VOLUME 10.4 fL (7.4-10.4); MONOCYTES 7.6 % (2-11); NEUTROPHILS 66.3 % (40-80); PLATELET COUNT 368 10x3/uL (130-400); RDW 16.6 % (11.5-14.5)
[2017-12-24 06:32] LABS: WBC 15.4 10x3/uL (4.8-10.8)
[2017-12-24 06:59] LABS: CALCIUM 7.5 mg/dL (8.5-10.1); CARBON DIOXIDE 20.3 mmol/L (21.0-32.0); CHLORIDE - SERUM 107 mmol/L (98-107); CREATININE - SERUM 0.7 mg/dL (0.6-1.3); POTASSIUM - SERUM 3.5 mmol/L (3.5-5.1); SODIUM 139 mmol/L (136-145); eGFR NON AFRICAN AMERICAN > 90 mL/min (90-120)
[2017-12-24 07:05] LABS: CALC OSMOLALITY 278 mosm/kg (275-300); GLUCOSE 157 mg/dL (74-106); UREA NITROGEN 6 mg/dL (7-18)
[2017-12-24] MEDS ORDERED: PERCOCET 10/3251 TA1 PO (08:01)
[2017-12-24 09:36] VITALS: BP 122/56
[2017-12-24 15:03] VITALS: BP 114/59
== END 2017-12-24 16:13 ==
LOC: D.MS 13:26 → OBSVTIME 13:26 → D.PAN 12-23 10:05 → D.OPS 12-23 10:05 → D.PAN 12-23 12:15 → D.OPS 12-23 13:00 → EDSTATUS 12-23 13:00 → D.PAN 12-23 13:00 → D.MS 12-24 16:13
PROVIDERS: Anesthesiology; Internal Medicine Nephrology
DX: S52.181A Other fracture of upper end of right radius, initial encounter for closed fracture (principal); W19.XXXA Unspecified fall, initial encounter; G89.29 Other chronic pain; R63.1 Polydipsia; F45.8 Other somatoform disorders; D64.9 Anemia, unspecified; E87.6 Hypokalemia

== ENCOUNTER → 2018-01-06 10:03 | Outpatient (CLI) | payer OTHER, MEDICAID ==
[2017-12-23 08:17] VITALS: BMI 18.0
[~2018-01-06 10:03] MED LIST changes: +KEFLEX500 MG PO; +MACROBID100 MG PO
[2018-01-06 10:16] LABS: CALC OSMOLALITY 268 mosm/kg (275-300); CREATININE - SERUM 0.6 mg/dL (0.6-1.3); GLUCOSE 88 mg/dL (74-106); HEMATOCRIT 39.6 % (36.0-48.0); HEMOGLOBIN 12.9 g/dL (12-16); MCH 30.3 pg (26.0-34.0); MCHC 32.6 g/dL (31.0-37.0); MEAN PLATELET VOLUME 9.9 fL (7.4-10.4); POTASSIUM - SERUM 3.1 mmol/L (3.5-5.1); RBC 4.26 10x6/uL (4.00-5.40); RDW 16.5 % (11.5-14.5); SODIUM 137 mmol/L (136-145); UREA NITROGEN 1 mg/dL (7-18); WBC 12.1 10x3/uL (4.8-10.8); eGFR NON AFRICAN AMERICAN > 90 mL/min (90-120)
[2018-01-06 10:17] LABS: CALCIUM 8.4 mg/dL (8.5-10.1); CHLORIDE - SERUM 106 mmol/L (98-107)
== END | disposition home or self-care (01) ==
LOC: D.LABREF 10:03
PROVIDERS: Orthopaedic Surgery
DX: E87.6 Hypokalemia (principal); M25.531 Pain in right wrist

== ENCOUNTER 2018-01-11 15:15 | Emergency (ER) | payer OTHER, MEDICAID ==
[~2018-01-11] VITALS: Ht 162.6 cm; Wt 47.7 kg
[~2018-01-11 15:15] MED LIST changes: -KEFLEX500 MG PO; -MACROBID100 MG PO
[2018-01-11 16:22] VITALS: BP 109/66; Ht 162.6 cm; Wt 47.7 kg
== END 2018-01-11 18:26 | disposition home or self-care (01) ==
LOC: D.ER 15:15
DX: S62.101G Fracture of unspecified carpal bone, right wrist, subsequent encounter for fracture with delayed healing (principal); X58.XXXD Exposure to other specified factors, subsequent encounter; S70.02XA Contusion of left hip, initial encounter; X58.XXXA Exposure to other specified factors, initial encounter; Y93.89 Activity, other specified; Y92.019 Unspecified place in single-family (private) house as the place of occurrence of the external cause; Z86.73 Personal history of transient ischemic attack (TIA), and cerebral infarction without residual deficits

== ENCOUNTER 2018-01-12 03:02 | Emergency (ER) | payer OTHER, MEDICAID ==
[~2018-01-12] VITALS: Ht 162.6 cm; Wt 47.7 kg
[2018-01-12 03:05] VITALS: Ht 162.6 cm; Wt 47.7 kg
[2018-01-12 04:03] VITALS: BP 98/67
== END 2018-01-12 04:03 | disposition home or self-care (01) ==
LOC: D.ER 03:02
DX: S62.101G Fracture of unspecified carpal bone, right wrist, subsequent encounter for fracture with delayed healing (principal); X58.XXXD Exposure to other specified factors, subsequent encounter; S73.102D Unspecified sprain of left hip, subsequent encounter; Z86.73 Personal history of transient ischemic attack (TIA), and cerebral infarction without residual deficits

== ENCOUNTER 2018-02-01 06:20 | Observation (INO) | payer OTHER, MEDICAID ==
[~2018-02-01] VITALS: Ht 162.6 cm; Wt 47.7 kg
[2018-02-01 06:52] VITALS: BP 104/77
[2018-02-01 07:12] LABS: BASOPHILS 0.5 % (0-2); EOSINOPHILS 1.4 % (0-7); HEMATOCRIT 39.6 % (36.0-48.0); IMMATURE GRANULOCYTES 0.3 % (0-5); LYMPHOCYTES 38.6 % (15-50); MCH 30.2 pg (26.0-34.0); MCHC 32.8 g/dL (31.0-37.0); MCV 91.9 fL (80.0-100.0); MEAN PLATELET VOLUME 10.4 fL (7.4-10.4); MONOCYTES 6.6 % (2-11); NEUTROPHILS 52.6 % (40-80); PLATELET COUNT 372 10x3/uL (130-400); RBC 4.31 10x6/uL (4.00-5.40); RDW 16.2 % (11.5-14.5); WBC 10.1 10x3/uL (4.8-10.8)
[2018-02-01 07:16] LABS: ALBUMIN 3.1 g/dL (3.4-5.0); ALKALINE PHOSPHATASE 155 U/L (46-116); ALT (SGPT) 24 U/L (10-68); BILIRUBIN - TOTAL 0.15 mg/dL (0.2-1.3); CALC OSMOLALITY 272 mosm/kg (275-300); CALCIUM 8.3 mg/dL (8.5-10.1); CARBON DIOXIDE 22.9 mmol/L (21.0-32.0); CHLORIDE - SERUM 105 mmol/L (98-107); CREATININE - SERUM 0.8 mg/dL (0.6-1.3); GLUCOSE 93 mg/dL (74-106); PROTEIN - SERUM 6.9 g/dL (6.4-8.2); SODIUM 137 mmol/L (136-145); UREA NITROGEN 9 mg/dL (7-18); eGFR NON AFRICAN AMERICAN 78 mL/min (90-120)
[2018-02-01 07:27] LABS: CKMB 1.3 U/L (0.0-3.6); MAGNESIUM - SERUM 1.8 mg/dL (1.8-2.4); TROPONIN-I < 0.017 ng/mL (0.000-0.060)
[2018-02-01 07:34] LABS: APPEARANCE SL CLDY (CLEAR); COLOR STRAW (YELLOW)
[2018-02-01 07:35] LABS: BILIRUBIN NEGATIVE (NEGATIVE); GLUCOSE NEGATIVE (NEGATIVE); KETONE NEGATIVE (NEGATIVE); NITRITE NEGATIVE (NEGATIVE); PROTEIN NEGATIVE (NEGATIVE); SPECIFIC GRAVITY 1.005 (1.005-1.020); UROBILINOGEN NORMAL (NORMAL)
[2018-02-01 07:36] LABS: BACTERIA MODERATE /hpf (NONE SEEN); EPITHELIAL CELLS 0-5 /hpf (0-5); MUCUS <1+ /lpf (NONE SEEN); RED CELLS - URINE RARE /hpf (0-5); WHITE CELLS - URINE 0-5 /hpf (0-5)
[2018-02-01 09:00] VITALS: BP 97/69
[2018-02-01 09:28] VITALS: Ht 162.6 cm; Wt 47.7 kg
== END 2018-02-01 14:14 | disposition home or self-care (01) ==
LOC: D.ER 06:20 → D.EDHOLD 07:57 → OBSVTIME 07:58 → D.M2 08:54
PROVIDERS: Family Medicine
DX: M25.531 Pain in right wrist (principal); W05.0XXA Fall from non-moving wheelchair, initial encounter; F41.9 Anxiety disorder, unspecified; F32.9 Major depressive disorder, single episode, unspecified; Z86.73 Personal history of transient ischemic attack (TIA), and cerebral infarction without residual deficits; E87.6 Hypokalemia; G89.29 Other chronic pain; R63.1 Polydipsia

== ENCOUNTER 2018-02-24 07:10 | Emergency (ER) | payer OTHER, MEDICAID ==
[~2018-02-24] VITALS: Ht 162.6 cm; Wt 46.8 kg
[2018-02-24 07:13] VITALS: Ht 162.6 cm; Wt 46.8 kg
[2018-02-24 07:35] LABS: BASOPHILS 0.2 % (0-2); EOSINOPHILS 0.3 % (0-7); HEMATOCRIT 39.6 % (36.0-48.0); HEMOGLOBIN 13.8 g/dL (12-16); IMMATURE GRANULOCYTES 0.4 % (0-5); MCHC 34.8 g/dL (31.0-37.0); MEAN PLATELET VOLUME 10.3 fL (7.4-10.4); MONOCYTES 5.6 % (2-11); NEUTROPHILS 72.5 % (40-80); PLATELET COUNT 387 10x3/uL (130-400); RBC 4.45 10x6/uL (4.00-5.40); RDW 15.1 % (11.5-14.5)
[2018-02-24 08:01] LABS: ALBUMIN 3.5 g/dL (3.4-5.0); ALKALINE PHOSPHATASE 165 U/L (46-116); ALT (SGPT) 16 U/L (10-68); BILIRUBIN - TOTAL 0.29 mg/dL (0.2-1.3); CALC OSMOLALITY 264 mosm/kg (275-300); CALCIUM 8.5 mg/dL (8.5-10.1); CARBON DIOXIDE 17.4 mmol/L (21.0-32.0); CHLORIDE - SERUM 103 mmol/L (98-107); CREATININE - SERUM 0.7 mg/dL (0.6-1.3); GLUCOSE 95 mg/dL (74-106); PROTEIN - SERUM 7.5 g/dL (6.4-8.2); SODIUM 134 mmol/L (136-145); UREA NITROGEN 3 mg/dL (7-18); eGFR NON AFRICAN AMERICAN > 90 mL/min (90-120)
[2018-02-24 08:10] LABS: POTASSIUM - SERUM 2.8 mmol/L (3.5-5.1)
[2018-02-24 08:32] LABS: APPEARANCE HAZY (CLEAR); COLOR YELLOW (YELLOW); GLUCOSE NEGATIVE (NEGATIVE); NITRITE NEGATIVE (NEGATIVE); PROTEIN TRACE mg/dL (NEGATIVE)
[2018-02-24 08:33] LABS: BILIRUBIN NEGATIVE (NEGATIVE); EPITHELIAL CELLS 0-5 /hpf (0-5); KETONE NEGATIVE (NEGATIVE); RED CELLS - URINE 0-5 /hpf (0-5); UROBILINOGEN NORMAL (NORMAL); WHITE CELLS - URINE 0-5 /hpf (0-5)
[2018-02-24 08:34] LABS: AMORPHOUS SEDIMENT NONE SEEN /lpf (NONE SEEN); BACTERIA FEW /hpf (NONE SEEN)
[2018-02-24] MEDS ORDERED: MACROBID100 MG PO (09:05)
[2018-02-24] MEDS ORDERED: KEFLEX500 MG PO (09:05)
[2018-02-24 09:23] VITALS: BP 146/74
== END 2018-02-24 09:27 | disposition home or self-care (01) ==
LOC: D.ER 07:10
PROVIDERS: Family Medicine
DX: M54.6 Pain in thoracic spine (principal); E87.6 Hypokalemia; M79.1 Myalgia; R07.81 Pleurodynia; N39.0 Urinary tract infection, site not specified

== ENCOUNTER 2018-06-21 07:50 | Emergency (ER) | payer OTHER, MEDICAID ==
[~2018-06-21] VITALS: Ht 162.6 cm; Wt 50.0 kg
[~2018-06-21 07:50] MED LIST changes: +KEFLEX500 MG PO; +MACROBID100 MG PO
[2018-06-21 07:51] VITALS: Ht 162.6 cm; Wt 50.0 kg
[2018-06-21 09:02] LABS: BASOPHILS 0.2 % (0-2); EOSINOPHILS 0.7 % (0-7); HEMATOCRIT 39.3 % (36.0-48.0); HEMOGLOBIN 12.9 g/dL (12-16); IMMATURE GRANULOCYTES 0.2 % (0-5); LYMPHOCYTES 17.4 % (15-50); MCH 28.5 pg (26.0-34.0); MCHC 32.8 g/dL (31.0-37.0); MCV 86.9 fL (80.0-100.0); MEAN PLATELET VOLUME 10.4 fL (7.4-10.4); MONOCYTES 6.4 % (2-11); NEUTROPHILS 75.1 % (40-80); PLATELET COUNT 463 10x3/uL (130-400); RBC 4.52 10x6/uL (4.00-5.40); RDW 17.1 % (11.5-14.5); WBC 12.4 10x3/uL (4.8-10.8)
[2018-06-21] MEDS ORDERED: ZOFRAN ODT4 MG/UDTAB PO (09:11)
[2018-06-21] MEDS ORDERED: LOMOTIL 2.5-0.1 EAC1 PO (09:12)
[2018-06-21 09:14] LABS: APPEARANCE CLEAR (CLEAR); BILIRUBIN NEGATIVE (NEGATIVE); COLOR STRAW (YELLOW); GLUCOSE NEGATIVE (NEGATIVE); KETONE NEGATIVE (NEGATIVE); NITRITE NEGATIVE (NEGATIVE); PROTEIN NEGATIVE (NEGATIVE); UROBILINOGEN NORMAL (NORMAL)
[2018-06-21 09:15] LABS: BACTERIA FEW /hpf (NONE SEEN); EPITHELIAL CELLS OCC /hpf (0-5); RED CELLS - URINE RARE /hpf (0-5); WHITE CELLS - URINE OCC /hpf (0-5)
[2018-06-21 09:16] LABS: ALBUMIN 3.2 g/dL (3.4-5.0); ALKALINE PHOSPHATASE 186 U/L (46-116); ALT (SGPT) 42 U/L (10-68); AMYLASE - SERUM 177 U/L (25-115); BILIRUBIN - TOTAL 0.21 mg/dL (0.2-1.3); CALC OSMOLALITY 270 mosm/kg (275-300); CALCIUM 8.6 mg/dL (8.5-10.1); CARBON DIOXIDE 19.3 mmol/L (21.0-32.0); CHLORIDE - SERUM 104 mmol/L (98-107); CREATININE - SERUM 0.8 mg/dL (0.6-1.3); GLUCOSE 100 mg/dL (74-106); LIPASE 238 U/L (73-393); SODIUM 137 mmol/L (136-145); TROPONIN-I < 0.017 ng/mL (0.000-0.060); UREA NITROGEN 5 mg/dL (7-18); eGFR NON AFRICAN AMERICAN 78 mL/min (90-120)
[2018-06-21 09:17] LABS: POTASSIUM - SERUM 2.2 mmol/L (3.5-5.1)
[2018-06-21] MEDS ORDERED: K-DUR20 MEQ PO (11:17)
[2018-06-21 13:18] VITALS: BP 124/91
== END 2018-06-21 13:15 | disposition home or self-care (01) ==
LOC: D.ER 07:50
PROVIDERS: Emergency Medicine
DX: R11.10 Vomiting, unspecified (principal); R19.7 Diarrhea, unspecified; E87.6 Hypokalemia

== ENCOUNTER 2018-09-27 08:00 | Outpatient (CLI) | payer OTHER, MEDICAID ==
[2018-06-21 07:51] VITALS: BMI 18.9
[~2018-09-27 08:00] MED LIST changes: +LOMOTIL 2.5-0.1 EAC1 PO; +ZOFRAN ODT4 MG/UDTAB PO
[2018-09-27] MEDS ORDERED: KLOR-CON M2020 MEQ PO (09:06)
[2018-09-27] MEDS ORDERED: BELSOMRA20 MG PO (09:07)
[2018-09-27 09:52] LABS: HEMATOCRIT 29.8 % (36.0-48.0); HEMOGLOBIN 9.6 g/dL (12-16); MCH 26.4 pg (26.0-34.0); MCHC 32.2 g/dL (31.0-37.0); MCV 81.9 fL (80.0-100.0); MEAN PLATELET VOLUME 9.8 fL (7.4-10.4); RBC 3.64 10x6/uL (4.00-5.40); RDW 17.6 % (11.5-14.5); WBC 10.8 10x3/uL (4.8-10.8)
[2018-09-27 10:02] LABS: CALC OSMOLALITY 277 mosm/kg (275-300); CALCIUM 7.6 mg/dL (8.5-10.1); CARBON DIOXIDE 23.9 mmol/L (21.0-32.0); CHLORIDE - SERUM 106 mmol/L (98-107); CREATININE - SERUM 0.5 mg/dL (0.6-1.3); GLUCOSE 91 mg/dL (74-106); SODIUM 141 mmol/L (136-145); UREA NITROGEN 4 mg/dL (7-18); eGFR NON AFRICAN AMERICAN > 90 mL/min (90-120)
[2018-09-27 10:04] LABS: APTT 28.5 SECONDS (22.8-39.4); INR 0.93 (0.85-1.17)
[2018-09-27 10:20] LABS: POTASSIUM - SERUM 2.6 mmol/L (3.5-5.1)
--- NOTE | 2018-09-27 12:11 | NUR ---
JESSY NOTE: CRITICAL LAB RESULT POTASSIUM 2.[address] SAINI'S OFFICE.
== END 2018-09-27 08:01 | disposition home or self-care (01) ==
LOC: D.OPS 08:00 → D.PAN 09-28 08:00 → EDSTATUS 09-28 08:00 → D.OPS 09-28 08:00
PROVIDERS: Anesthesiology; ATTEND Surgery
DX: K43.9 Ventral hernia without obstruction or gangrene (principal); Z53.09 Procedure and treatment not carried out because of other contraindication; Z01.812 Encounter for preprocedural laboratory examination

== ENCOUNTER 2018-11-28 07:00 | Day surgery (SDC) | payer OTHER, MEDICAID ==
[~2018-11-28] VITALS: Ht 162.6 cm; Wt 48.1 kg
[~2018-11-28 07:00] MED LIST changes: +BELSOMRA20 MG PO; +KLOR-CON M2020 MEQ PO
[2018-11-28 08:35] VITALS: BP 104/59; Ht 162.6 cm; Wt 48.1 kg
[2018-11-28 10:54] LABS: BASOPHILS 0.5 % (0-2); EOSINOPHILS 3.6 % (0-7); HEMOGLOBIN 9.3 g/dL (12-16); IMMATURE GRANULOCYTES 0.2 % (0-5); MCH 23.1 pg (26.0-34.0); MCV 74.4 fL (80.0-100.0); MEAN PLATELET VOLUME 10.2 fL (7.4-10.4); MONOCYTES 4.7 % (2-11); RBC 4.03 10x6/uL (4.00-5.40); RDW 17.7 % (11.5-14.5); WBC 8.3 10x3/uL (4.8-10.8)
[2018-11-28 10:55] LABS: PLATELET COUNT 345 10x3/uL (130-400)
[2018-11-28 10:56] LABS: CALC OSMOLALITY 275 mosm/kg (275-300); CALCIUM 7.9 mg/dL (8.5-10.1); CARBON DIOXIDE 23.4 mmol/L (21.0-32.0); CHLORIDE - SERUM 106 mmol/L (98-107); CREATININE - SERUM 0.6 mg/dL (0.6-1.3); GLUCOSE 83 mg/dL (74-106); POTASSIUM - SERUM 3.7 mmol/L (3.5-5.1); SODIUM 139 mmol/L (136-145); UREA NITROGEN 10 mg/dL (7-18); eGFR NON AFRICAN AMERICAN > 90 mL/min (90-120)
[2018-11-28] MEDS ORDERED: OXYCODONE HCL5 M1 PO (11:55)
--- NOTE | 2018-11-28 12:43 | NUR ---
PATIENT STATES PAIN LEVEL IS STILL 8/10. PATIENT TAKES OXYCODONE 10MG FOUR TIMES DAILY. DILAUDID 2MG WAS GIVEN IN PACU ORDERED. WILL CONTINUE TO MONITOR.
--- NOTE | 2018-11-28 13:14 | NUR ---
PT FEELING NAUSEATED. ADMINISTERED ZOFRAN IV PER ORDER. WILL CONTINUE TO MONITOR.
--- NOTE | 2018-11-28 13:34 | NUR ---
PT STATES PAIN OF 9/10. ADMINISTERED OXYCODONE PER ORDER. WILL CONTINUE TO MONITOR.
== END 2018-11-28 14:20 | disposition home or self-care (01) ==
LOC: D.OPS 07:00
PROVIDERS: Anesthesiology; ATTEND Surgery
DX: K43.9 Ventral hernia without obstruction or gangrene (principal); Z01.812 Encounter for preprocedural laboratory examination

== ENCOUNTER 2018-12-04 10:39 | Emergency (ER) | payer OTHER, MEDICAID ==
[~2018-12-04] VITALS: Ht 162.6 cm; Wt 50.0 kg
[~2018-12-04 10:39] MED LIST changes: +OXYCODONE HCL5 M1 PO
[2018-12-04 10:46] VITALS: Ht 162.6 cm; Wt 50.0 kg
[2018-12-04 11:26] LABS: BASOPHILS 0.2 % (0-2); EOSINOPHILS 2.7 % (0-7); HEMATOCRIT 30.6 % (36.0-48.0); HEMOGLOBIN 9.6 g/dL (12-16); IMMATURE GRANULOCYTES 0.3 % (0-5); LYMPHOCYTES 20.5 % (15-50); MCH 23.5 pg (26.0-34.0); MCHC 31.4 g/dL (31.0-37.0); MCV 74.8 fL (80.0-100.0); MEAN PLATELET VOLUME 10.1 fL (7.4-10.4); MONOCYTES 6.1 % (2-11); NEUTROPHILS 70.2 % (40-80); PLATELET COUNT 441 10x3/uL (130-400); RBC 4.09 10x6/uL (4.00-5.40); RDW 18.3 % (11.5-14.5)
[2018-12-04 11:55] LABS: ALBUMIN 2.6 g/dL (3.4-5.0); ALKALINE PHOSPHATASE 193 U/L (46-116); ALT (SGPT) 36 U/L (10-68); BILIRUBIN - TOTAL 0.08 mg/dL (0.2-1.3); CALC OSMOLALITY 274 mosm/kg (275-300); CALCIUM 9.2 mg/dL (8.5-10.1); CARBON DIOXIDE 24.9 mmol/L (21.0-32.0); CHLORIDE - SERUM 104 mmol/L (98-107); CREATININE - SERUM 0.4 mg/dL (0.6-1.3); GLUCOSE 106 mg/dL (74-106); PROTEIN - SERUM 6.6 g/dL (6.4-8.2); SODIUM 138 mmol/L (136-145); UREA NITROGEN 10 mg/dL (7-18); eGFR NON AFRICAN AMERICAN > 90 mL/min (90-120)
[2018-12-04 11:59] LABS: AMYLASE - SERUM 233 U/L (25-115); LIPASE 268 U/L (73-393); TROPONIN-I < 0.017 ng/mL (0.000-0.060)
[2018-12-04 14:15] VITALS: BP 122/86
== END 2018-12-04 14:16 | disposition home or self-care (01) ==
LOC: D.ER 10:39
PROVIDERS: Family Medicine
DX: R10.9 Unspecified abdominal pain (principal); Z76.5 Malingerer [conscious simulation]; G89.18 Other acute postprocedural pain

== ENCOUNTER 2019-04-11 07:15 | Emergency (ER) | payer OTHER, MEDICAID ==
[~2019-04-11] VITALS: Ht 162.6 cm; Wt 77.3 kg
[2019-04-11 07:18] VITALS: Ht 162.6 cm; Wt 77.3 kg
[2019-04-11] MEDS ORDERED: HYDROCODONE-A1 UDTA2 PO (07:57)
[2019-04-11 08:11] VITALS: BP 132/80
== END 2019-04-11 08:12 | disposition home or self-care (01) ==
LOC: D.ER 07:15
DX: S59.902A Unspecified injury of left elbow, initial encounter (principal); W19.XXXA Unspecified fall, initial encounter

== ENCOUNTER 2019-05-13 11:31 | Emergency (ER) | payer OTHER, MEDICAID ==
[~2019-05-13] VITALS: Ht 162.6 cm; Wt 49.1 kg
[~2019-05-13 11:31] MED LIST changes: +HYDROCODONE-A1 UDTA2 PO
[2019-05-13 11:34] VITALS: Ht 162.6 cm; Wt 49.1 kg
[2019-05-13] MEDS ORDERED: HYDROCODON-ACE1 EA10 PO (11:39)
[2019-05-13] MEDS ORDERED: ZOFRAN ODT4 MG/UDTAB PO (11:40)
[2019-05-13] MEDS ORDERED: AMBIEN10 MG PO (11:40)
[2019-05-13 11:55] LABS: BASOPHILS 0.7 % (0-2); EOSINOPHILS 0.8 % (0-7); HEMATOCRIT 38.2 % (36.0-48.0); HEMOGLOBIN 12.2 g/dL (12-16); IMMATURE GRANULOCYTES 0.3 % (0-5); LYMPHOCYTES 24.7 % (15-50); MCH 26.8 pg (26.0-34.0); MCHC 31.9 g/dL (31.0-37.0); MEAN PLATELET VOLUME 9.9 fL (7.4-10.4); MONOCYTES 4.9 % (2-11); NEUTROPHILS 68.6 % (40-80); PLATELET COUNT 469 10x3/uL (130-400); RBC 4.55 10x6/uL (4.00-5.40); WBC 11.5 10x3/uL (4.8-10.8)
[2019-05-13 12:05] LABS: APTT 31.2 SECONDS (22.8-39.4); CALC OSMOLALITY 274 mosm/kg (275-300); CARBON DIOXIDE 15.1 mmol/L (21.0-32.0); CHLORIDE - SERUM 103 mmol/L (98-107); CREATININE - SERUM 0.6 mg/dL (0.6-1.3); GLUCOSE 141 mg/dL (74-106); INR 1.06 (0.85-1.17); POTASSIUM - SERUM 3.4 mmol/L (3.5-5.1); PROTIME 13.3 SECONDS (11.6-15.0); SODIUM 138 mmol/L (136-145); UREA NITROGEN 4 mg/dL (7-18); eGFR NON AFRICAN AMERICAN > 90 mL/min (90-120)
[2019-05-13 12:19] LABS: ALBUMIN 2.8 g/dL (3.4-5.0); ALKALINE PHOSPHATASE 259 U/L (46-116); ALT (SGPT) 79 U/L (10-68); BILIRUBIN - TOTAL 0.25 mg/dL (0.2-1.3); CKMB 0.9 U/L (0.0-3.6); CREATINE KINASE 29 UL (21-215); PRO BNP 45 pg/mL (0-125); PROTEIN - SERUM 6.9 g/dL (6.4-8.2)
[2019-05-13 12:24] LABS: TROPONIN-I < 0.017 ng/mL (0.000-0.060)
[2019-05-13 13:57] VITALS: BP 112/81
== END 2019-05-13 13:58 | disposition home or self-care (01) ==
LOC: D.ER 11:31
PROVIDERS: Emergency Medicine
DX: R06.2 Wheezing (principal); F10.129 Alcohol abuse with intoxication, unspecified; Y90.6 Blood alcohol level of 120-199 mg/100 ml; Z99.81 Dependence on supplemental oxygen; J44.9 Chronic obstructive pulmonary disease, unspecified; Z86.74 Personal history of sudden cardiac arrest

== ENCOUNTER 2019-06-05 12:07 | Emergency (ER) | payer MEDICAID ==
[~2019-06-05] VITALS: Ht 162.6 cm; Wt 50.9 kg
[~2019-06-05 12:07] MED LIST changes: +HYDROCODON-ACE1 EA10 PO
[2019-06-05 12:09] VITALS: Ht 162.6 cm; Wt 50.9 kg
[2019-06-05 12:59] LABS: BASOPHILS 0.6 % (0-2); EOSINOPHILS 0.2 % (0-7); HEMATOCRIT 39.1 % (36.0-48.0); HEMOGLOBIN 12.8 g/dL (12-16); IMMATURE GRANULOCYTES 0.2 % (0-5); INR 1.03 (0.85-1.17); LYMPHOCYTES 18.6 % (15-50); MCH 27.9 pg (26.0-34.0); MCHC 32.7 g/dL (31.0-37.0); MCV 85.2 fL (80.0-100.0); MEAN PLATELET VOLUME 9.9 fL (7.4-10.4); MONOCYTES 8.9 % (2-11); NEUTROPHILS 71.5 % (40-80); PLATELET COUNT 531 10x3/uL (130-400); RBC 4.59 10x6/uL (4.00-5.40); RDW 23.8 % (11.5-14.5); WBC 9.9 10x3/uL (4.8-10.8)
[2019-06-05 13:00] LABS: CALC OSMOLALITY 270 mosm/kg (275-300); CALCIUM 8.5 mg/dL (8.5-10.1); CARBON DIOXIDE 19.3 mmol/L (21.0-32.0); CHLORIDE - SERUM 103 mmol/L (98-107); CREATININE - SERUM 0.6 mg/dL (0.6-1.3); GLUCOSE 106 mg/dL (74-106); POTASSIUM - SERUM 3.2 mmol/L (3.5-5.1); SODIUM 137 mmol/L (136-145); UREA NITROGEN 5 mg/dL (7-18); eGFR NON AFRICAN AMERICAN > 90 mL/min (90-120)
[2019-06-05 13:17] LABS: ALBUMIN 2.9 g/dL (3.4-5.0); ALKALINE PHOSPHATASE 485 U/L (46-116); ALT (SGPT) 52 U/L (10-68); BILIRUBIN - TOTAL 0.48 mg/dL (0.2-1.3); CKMB 0.5 U/L (0.0-3.6); CREATINE KINASE 18 UL (21-215); MAGNESIUM - SERUM 1.8 mg/dL (1.8-2.4); PROTEIN - SERUM 7.1 g/dL (6.4-8.2); TROPONIN-I < 0.017 ng/mL (0.000-0.060)
[2019-06-05] MEDS ORDERED: IMODIUM2 MG PO ×3 (13:58→14:05)
[2019-06-05] MEDS ORDERED: LEVOFLOXACIN500 MG PO ×3 (13:58→14:05)
[2019-06-05 16:32] VITALS: BP 128/88
== END 2019-06-05 16:32 | disposition home or self-care (01) ==
LOC: D.ER 12:07
PROVIDERS: Emergency Medicine
DX: E87.6 Hypokalemia (principal); J20.9 Acute bronchitis, unspecified; E86.0 Dehydration; R19.7 Diarrhea, unspecified

== ENCOUNTER → 2019-07-04 08:42 | Outpatient (CLI) | payer OTHER, MEDICAID ==
[2019-06-05 12:09] VITALS: BMI 19.2
[~2019-07-04 08:42] MED LIST changes: +IMODIUM2 MG PO; +LEVOFLOXACIN500 MG PO
== END | disposition home or self-care (01) ==
LOC: D.CT 07-03 15:00
PROVIDERS: ATTEND Clinical Nurse Specialist Family Health
DX: M25.512 Pain in left shoulder (principal)

== ENCOUNTER 2020-01-15 09:13 | Inpatient (IN) | payer OTHER, MEDICAID ==
[~2020-01-15] VITALS: Ht 162.6 cm; Wt 51.8 kg
[2020-01-15 09:47] LABS: BASOPHILS 0.3 % (0-2); EOSINOPHILS 0.9 % (0-7); HEMATOCRIT 37.4 % (36.0-48.0); HEMOGLOBIN 13.1 g/dL (12-16); IMMATURE GRANULOCYTES 0.2 % (0-5); LYMPHOCYTES 14.8 % (15-50); MCH 34.7 pg (26.0-34.0); MCV 99.2 fL (80.0-100.0); MEAN PLATELET VOLUME 10.8 fL (7.4-10.4); MONOCYTES 7.7 % (2-11); NEUTROPHILS 76.1 % (40-80); PLATELET COUNT 431 10x3/uL (130-400); RBC 3.77 10x6/uL (4.00-5.40); RDW 17.4 % (11.5-14.5); WBC 9.4 10x3/uL (4.8-10.8)
[2020-01-15 10:45] LABS: ALBUMIN 1.7 g/dL (3.4-5.0); ALKALINE PHOSPHATASE 300 U/L (30-120); ALT (SGPT) 39 U/L (10-68); BILIRUBIN - TOTAL 0.84 mg/dL (0.2-1.3); CALC OSMOLALITY 269 mosm/kg (275-300); CALCIUM 7.1 mg/dL (8.5-10.1); CARBON DIOXIDE 19.4 mmol/L (21.0-32.0); CHLORIDE - SERUM 105 mmol/L (98-107); CREATININE - SERUM 0.5 mg/dL (0.6-1.3); GLUCOSE 127 mg/dL (74-106); LIPASE 209 U/L (73-393); PROTEIN - SERUM 5.6 g/dL (6.4-8.2); SODIUM 136 mmol/L (136-145); UREA NITROGEN 2 mg/dL (7-18); eGFR NON AFRICAN AMERICAN > 90 mL/min (90-120)
[2020-01-15 11:03] LABS: POTASSIUM - SERUM 2.1 mmol/L (3.5-5.1)
[2020-01-15 11:30] VITALS: BP 115/83
[2020-01-15 11:58] LABS: BILIRUBIN NEGATIVE (NEGATIVE); GLUCOSE NEGATIVE (NEGATIVE); KETONE NEGATIVE (NEGATIVE); NITRITE NEGATIVE (NEGATIVE)
[2020-01-15 11:59] LABS: BACTERIA MANY /hpf (NEGATIVE); EPITHELIAL CELLS 0-5 /hpf (0-5); RED CELLS - URINE RARE /hpf (0-5); WHITE CELLS - URINE 0-5 /hpf (NEGATIVE)
[2020-01-15 12:51] VITALS: BP 110/70
--- NOTE | 2020-01-15 13:12 | NUR ---
REPORT TO RONEL TOLENTINO
--- NOTE | 2020-01-15 15:30 | NUR ---
ARRIVED TO UNIT PER W/C, IV IN PLACE, CONT TO MONITOR PAIN
[2020-01-15 15:49] VITALS: BP 104/69
[2020-01-15 19:41] LABS: APTT 30.5 SECONDS (22.8-39.4); INR 1.22 (0.85-1.17); PROTIME 15.3 SECONDS (11.6-15.0)
[2020-01-15 20:00] VITALS: BP 98/68
--- NOTE | 2020-01-15 21:31 | NUR ---
REPEAT K AT 1633 2.9, WILL ADDRESS K AGAIN
[2020-01-16] VITALS: BP 96/64
[2020-01-16 04:00] VITALS: BP 97/68
[2020-01-16 05:35] LABS: BASOPHILS 0.6 % (0-2); EOSINOPHILS 1.4 % (0-7); HEMATOCRIT 35.2 % (36.0-48.0); HEMOGLOBIN 11.9 g/dL (12-16); IMMATURE GRANULOCYTES 0.3 % (0-5); LYMPHOCYTES 23.4 % (15-50); MCH 33.9 pg (26.0-34.0); MCHC 33.8 g/dL (31.0-37.0); MCV 100.3 fL (80.0-100.0); MEAN PLATELET VOLUME 10.7 fL (7.4-10.4); MONOCYTES 9.9 % (2-11); NEUTROPHILS 64.4 % (40-80); RBC 3.51 10x6/uL (4.00-5.40); RDW 17.3 % (11.5-14.5); WBC 10.2 10x3/uL (4.8-10.8)
[2020-01-16 05:40] LABS: PLATELET COUNT 301 10x3/uL (130-400)
[2020-01-16 05:51] LABS: ALBUMIN 1.6 g/dL (3.4-5.0); ALKALINE PHOSPHATASE 274 U/L (30-120); ALT (SGPT) 41 U/L (10-68); AMYLASE - SERUM 133 U/L (25-115); BILIRUBIN - TOTAL 0.86 mg/dL (0.2-1.3); CARBON DIOXIDE 19.4 mmol/L (21.0-32.0); CHLORIDE - SERUM 107 mmol/L (98-107); CREATININE - SERUM 0.5 mg/dL (0.6-1.3); MAGNESIUM - SERUM 1.7 mg/dL (1.8-2.4); SODIUM 137 mmol/L (136-145); eGFR NON AFRICAN AMERICAN > 90 mL/min (90-120)
[2020-01-16 06:44] LABS: CALC OSMOLALITY 268 mosm/kg (275-300); GLUCOSE 76 mg/dL (74-106); UREA NITROGEN 1 mg/dL (7-18)
[2020-01-16 06:47] LABS: CALCIUM 6.4 mg/dL (8.5-10.1)
--- NOTE | 2020-01-16 07:30 | NUR ---
REC'D IN BED AWAKE AND ALERT. RESP EVEN AND UNLABORED WITH NO DISTRESS NOTED. CAN EXPRESS NEEDS AND WANTS. NO C/O NOTED OR VOICED. ASSESSMENT COMPLETED. LEFT ARM RESERVE. C/L UN REACH AT BEDSIDE.
[2020-01-16 09:17] VITALS: BP 95/70
--- NOTE | 2020-01-16 09:42 | NUR ---
MEDICATED WITH MORPHINE PER ORDERRS FOR C/O ABD. PAIN. C/L IN REACH
--- NOTE | 2020-01-16 12:11 | NUR ---
I have reviewed this patient and I concur with the Shift Assessment completed by the Licensed Practical Nurse today this shift.
[2020-01-16 13:43] VITALS: BMI 19.2
[2020-01-16 14:34] VITALS: BP 105/78
[2020-01-16 17:56] VITALS: BP 111/80
--- NOTE | 2020-01-16 19:39 | NUR ---
CALLED WAS PLACED TO CUSTOMER SERVICE AGENT D/T PT C/O PAIN. SHE HAS IN USE A JEWEL BEARING POLISHER OF MORPHINE WHICH SHE HAS REACHED HER MAX LIMITED AT THIS TIME. AWAITING RESPONSE.
[2020-01-16 20:00] VITALS: BP 120/90
--- NOTE | 2020-01-16 20:08 | NUR ---
REC'D CALL BACK FROM NATHAN BARRETT APN AT THIS TIME WITH NEW ORDERS FOR MORPHINE 2 MG IV X 1 AT THIS TIME. PT MADE AWARE OF NEW ORDER. C/L IN REACH AT BEDSIDE.
[2020-01-17 04:00] VITALS: BP 96/41
--- NOTE | 2020-01-17 05:35 | NUR ---
I have reviewed this patient and I concur with the Shift Assessment completed by the Licensed Practical Nurse today this shift.
[2020-01-17 05:46] LABS: BASOPHILS 0.3 % (0-2); EOSINOPHILS 0.6 % (0-7); HEMOGLOBIN 13.5 g/dL (12-16); IMMATURE GRANULOCYTES 0.5 % (0-5); MCH 34.9 pg (26.0-34.0); MCHC 34.6 g/dL (31.0-37.0); MCV 100.8 fL (80.0-100.0); MEAN PLATELET VOLUME 11.2 fL (7.4-10.4); MONOCYTES 7.4 % (2-11); NEUTROPHILS 78.2 % (40-80); PLATELET COUNT 258 10x3/uL (130-400); RBC 3.87 10x6/uL (4.00-5.40)
[2020-01-17 05:49] LABS: WBC 13.4 10x3/uL (4.8-10.8)
[2020-01-17 06:31] LABS: ALKALINE PHOSPHATASE 312 U/L (30-120); BILIRUBIN - TOTAL 1.24 mg/dL (0.2-1.3); CALC OSMOLALITY 261 mosm/kg (275-300); CARBON DIOXIDE 16.2 mmol/L (21.0-32.0); CHLORIDE - SERUM 101 mmol/L (98-107); CREATININE - SERUM 0.5 mg/dL (0.6-1.3); GLUCOSE 101 mg/dL (74-106); MAGNESIUM - SERUM 1.5 mg/dL (1.8-2.4); POTASSIUM - SERUM 3.4 mmol/L (3.5-5.1); PROTEIN - SERUM 5.8 g/dL (6.4-8.2); SODIUM 133 mmol/L (136-145); UREA NITROGEN 1 mg/dL (7-18); eGFR NON AFRICAN AMERICAN > 90 mL/min (90-120)
[2020-01-17 07:03] LABS: ALT (SGPT) 53 U/L (10-68)
--- NOTE | 2020-01-17 07:15 | NUR ---
REC'D IN BED WITH EYES CLOSED AROUSED WITH TACTICAL STIMULI. RESP EVEN AND UNLABORED WITH NO DISTRESS NOTED. CAN EXPRESS NEEDS AND SOME WANTS. PT TALKING SPACED OUT AT THIS TIME. ASSESSMENT COMPLETED. PT HAS BEEN INSTRUCTED TO USE CALL LIGHT SYSTEMF OR ASSISTANCE. REFUSE TO WEAR NON-SKID SOCKS. C/L IN REACH AT BEDSIDE.
[2020-01-17 07:21] LABS: AMYLASE - SERUM 317 U/L (25-115); CALCIUM 6.6 mg/dL (8.5-10.1)
[2020-01-17 09:01] VITALS: BP 116/80
[2020-01-17 13:36] VITALS: BP 100/74
[2020-01-17 14:10] LABS: CEA 6.4 ng/mL (0.0-4.7)
--- NOTE | 2020-01-17 16:31 | MORECARE ---
CASE MANAGEMENT DISCHARGE SUMMARY PATIENT: WILLIAM BRYANT UNIT: [id number] ADM DATE: 01/15/20 AGE: 59 : 62 SEX: F ROOM/BED: D.2223 AUTHOR: SEAN PANIAGUA PHYSICIAN: REFERRING PHYSICIAN: JEREMI COOK DO DATE OF SERVICE: 01/17/20 Discharge Plan Patient Name: WILLIAM BRYANT Facility: [facility]:[place] : 1960 Planned Disposition: Home Anticipated Discharge Date: Discharge Date: Expected LOS: Initial Reviewer: [email or web address] Initial Review Date: 01/15/2020 Generated: 01/17/20 5:31 pm Comments DCP- Discharge Planning Updated by [email or web address]: Em Carbajal on 01/17/20 3:[address] Patient Name: WILLIAM BRYANT Admission Status: ER Accout number: [id number] Admission Date: 01-15-2020 : 1960 Admission Diagnosis:UNSPECIFIED ABDOMINAL PAIN Attending: JEREMI COOK Current LOS: 2 Anticipated DC Date: Planned Disposition: Home Primary Insurance: Discharge Planning Comments: CM met with patient at bedside after explaining CM role and obtaining verbal consent. CM discussed availability / needs of home health, REHAB and medical equipment. PATIENT STATES SHE NEEDS A BSC AND SHOWER CHAIR, LIDYA FOR OBRIENS. PLANS TO DC TO HOME WHEN STABLE. DENIES NEED FOR HH, OR REHAB. CM TO FOLLOW AND ASSIST NEEDED, Computer Hardware Engineer: Em Carbajal DCPIA - Discharge Planning Initial Assessment Updated by [email or web address]: Em Carbajal on 01/17/20 4:23 pm * Is the patient Alert and Oriented? Yes * PCP JUDSON * Pharmacy [facility] * Preadmission Environment Home Alone * ADLs Independent * Other Equipment WALKER * Community resources currently utilized None * Additional services required to return to the preadmission environment? No * Can the patient safely return to the preadmission environment? Yes * Has this patient been hospitalized within the prior 30 days at any hospital? No Coverage Notice Reviewer: [id number] - Em Carbajal Notice Issued Date-Time: 01/17/2020 16:24 Notice Type: Patient Choice Letter Notice Delivered To: Relationship to Patient: Transfer And Pumphouse Operator Chief Name: Delivery Method: - Milli Days: Prior Verbal Notification: Recipient Understood Notice: Recipient Signature: Med Rec Note Co-signed by Attending: Coverage Notice Comment: NIKITA COON FOR BSC AND SC Patient Name: WILLIAM BRYANT Page [phone] at 1631 All edits/amendments must be made on the electronic document DICTATION DATE: 01/17/20 1631 BRUSHER WARP: CAMI 01/17/20 1631 RPT#: [id number] DC DATE: STATUS: ADM IN [facility] [address] [place] [address] END OF REPORT
--- NOTE | 2020-01-17 17:10 | NUR ---
WAS CALLED TO PT ROOM OVER RADIO UPON NURSE ENETERING PT ROOM OBSERVE PT SITTING ON FLOOR WITH LEGS STRAIGHT OUT IN FRONT OF HER. PT STATED " I SLIDE OUT OF BED ON TO MY KNEES." PT WAS ASSISTED BACK TO BED VIA THIS NURSE AND ANOTHER NURSE. ASSESSED FOR INJURIES WITH NO APPARENT INJURIES NOTED. DR. COOK WAS SITTING AT NURSING STATION WAS INFORMED OF SAID INCIDENT REC'D ORDERS FOR XR OF KELLY KNEES.
[2020-01-17 18:41] VITALS: BP 135/75
--- NOTE | 2020-01-17 21:30 | NUR ---
CALLED SUPERINTENDENT COMMUNICATIONS DR NATHAN BARRETT. SPOKE WITH HIM ABOUT NGT ORDERS. HE STATED TO HOLD OFF ON NGT PLACEMENT UNLESS PT STARTS VOMITING. PT HAS NOT VOMITED YET. WILL FALLOW UP. IF NGT NEEDS TO BE PLACED PLACE TO LIS.
[2020-01-17 22:20] VITALS: BP 114/76
--- NOTE | 2020-01-18 03:53 | NUR ---
I have reviewed this patient and I concur with the Shift Assessment completed by the Licensed Practical Nurse today this shift.
[2020-01-18 04:00] VITALS: BP 114/84
[2020-01-18 07:08] LABS: BASOPHILS 0.2 % (0-2); EOSINOPHILS 0.6 % (0-7); HEMATOCRIT 34.6 % (36.0-48.0); HEMOGLOBIN 12.1 g/dL (12-16); IMMATURE GRANULOCYTES 0.3 % (0-5); LYMPHOCYTES 13.7 % (15-50); MCH 34.7 pg (26.0-34.0); MCV 99.1 fL (80.0-100.0); MEAN PLATELET VOLUME 10.6 fL (7.4-10.4); MONOCYTES 9.4 % (2-11); NEUTROPHILS 75.8 % (40-80); PLATELET COUNT 287 10x3/uL (130-400); RBC 3.49 10x6/uL (4.00-5.40); RDW 16.5 % (11.5-14.5); WBC 12.3 10x3/uL (4.8-10.8)
[2020-01-18 07:40] LABS: ALBUMIN 1.6 g/dL (3.4-5.0); ALKALINE PHOSPHATASE 262 U/L (30-120); ALT (SGPT) 45 U/L (10-68); BILIRUBIN - TOTAL 1.65 mg/dL (0.2-1.3); CALC OSMOLALITY 258 mosm/kg (275-300); CARBON DIOXIDE 18.6 mmol/L (21.0-32.0); CHLORIDE - SERUM 101 mmol/L (98-107); CREATININE - SERUM 0.5 mg/dL (0.6-1.3); GLUCOSE 95 mg/dL (74-106); MAGNESIUM - SERUM 1.3 mg/dL (1.8-2.4); PROTEIN - SERUM 5.4 g/dL (6.4-8.2); SODIUM 131 mmol/L (136-145); UREA NITROGEN 1 mg/dL (7-18); eGFR NON AFRICAN AMERICAN > 90 mL/min (90-120)
[2020-01-18 07:41] LABS: AMYLASE - SERUM 321 U/L (25-115)
[2020-01-18 07:42] LABS: CALCIUM 6.7 mg/dL (8.5-10.1); POTASSIUM - SERUM 2.8 mmol/L (3.5-5.1)
[2020-01-18 08:00] VITALS: BP 97/71
[2020-01-18 12:00] VITALS: BP 101/65
[2020-01-18 15:32] VITALS: BP 115/89
[2020-01-18 20:00] VITALS: BP 104/78
[2020-01-19 04:00] VITALS: BP 91/67
[2020-01-19 04:47] LABS: BASOPHILS 0.3 % (0-2); EOSINOPHILS 1.5 % (0-7); HEMATOCRIT 37.9 % (36.0-48.0); HEMOGLOBIN 13.3 g/dL (12-16); IMMATURE GRANULOCYTES 0.5 % (0-5); LYMPHOCYTES 17.8 % (15-50); MCH 35.2 pg (26.0-34.0); MCHC 35.1 g/dL (31.0-37.0); MCV 100.3 fL (80.0-100.0); MEAN PLATELET VOLUME 11.5 fL (7.4-10.4); MONOCYTES 6.7 % (2-11); NEUTROPHILS 73.2 % (40-80); PLATELET COUNT 297 10x3/uL (130-400); RBC 3.78 10x6/uL (4.00-5.40); RDW 16.2 % (11.5-14.5); WBC 11.9 10x3/uL (4.8-10.8)
[2020-01-19 09:26] VITALS: BP 110/82
--- NOTE | 2020-01-19 09:50 | NUR ---
SHE IS UNSTEADY ON HER FEET. SHE IS PUSHING THE BUTTONS ON THE TECHNICAL CLERK. EDUCATED HER ABOUT NOT PUSHING THE BUTTONS. HER VOICE IS HOARSE THIS MORNING, SHE DENIES ANY VOMITING. THE BED ALARM IS ON AND THE CALL LIGHT IS WITHIN REACH.
[2020-01-19 12:21] LABS: ALBUMIN 1.5 g/dL (3.4-5.0); ALKALINE PHOSPHATASE 258 U/L (30-120); ALT (SGPT) 46 U/L (10-68); BILIRUBIN - TOTAL 2.42 mg/dL (0.2-1.3); CHLORIDE - SERUM 103 mmol/L (98-107); CREATININE - SERUM 0.4 mg/dL (0.6-1.3); MAGNESIUM - SERUM 1.5 mg/dL (1.8-2.4); PROTEIN - SERUM 4.8 g/dL (6.4-8.2); SODIUM 136 mmol/L (136-145); UREA NITROGEN 1 mg/dL (7-18); eGFR NON AFRICAN AMERICAN > 90 mL/min (90-120)
[2020-01-19 12:23] LABS: AMYLASE - SERUM 88 U/L (25-115); CALC OSMOLALITY 265 mosm/kg (275-300); CARBON DIOXIDE 23.3 mmol/L (21.0-32.0); GLUCOSE 69 mg/dL (74-106); POTASSIUM - SERUM 3.4 mmol/L (3.5-5.1)
[2020-01-19 12:25] LABS: CALCIUM 6.6 mg/dL (8.5-10.1)
[2020-01-19 12:56] VITALS: BP 98/75
--- NOTE | 2020-01-19 13:30 | NUR ---
I SPOKE WITH MIKHAIL WOOD, REGARDING THE CALCIUM LEVEL. NO NEW ORDERS AT THIS TIME.
--- NOTE | 2020-01-19 14:39 | NUR ---
NUTRITION F/U CHART REVIEWED. CURRENTLY NPO. LAB RESULTS NOTED. WILL HOPEFULLY BE ABLE TO TOLERATE PO SOON. WILL ASSIST WITH NUTRITION SUPPORT IF NEEDED. RD FOLLOWING
[2020-01-19 17:22] VITALS: BP 115/87
--- NOTE | 2020-01-19 19:00 | NUR ---
BEDSIDE REPORT RECEIVED AND CARE OF PT ASSUMED. PT LYING IN SUPINE POSITION WATCHING TV. IV TO RIGHT UPPER ARM PATENT WITH NS W/ 20 K INFUSING AT 125 ML/HR. RAJENDRA ALARM AND BSC IN USE. WILL MONITOR FOR NEEDS.
[2020-01-19 20:00] VITALS: BP 138/67
--- NOTE | 2020-01-19 21:15 | NUR ---
HS MEDICATIONS GIVEN. WILL CONTINUE TO MONITOR FOR NEEDS.
--- NOTE | 2020-01-20 02:42 | NUR ---
CALLED TO ROOM....PT UPSET AND HAVING BRIGHT RED BLOOD COMING FROM [facility]...ON TISSUES THAT SHE HAD WEDGED BETWEEN BUTTOCKS. SMALL AMOUNT OF BLOODY TISSUE IN BSC...ALSO FOUND SPOON ??? IN BEDSIDE COMMODE WHEN EMPTYING. QUESTIONED PT ABOUT SPOON AND IF SHE WAS TRYING TO DIG HERSELF OUT...PT DENIED. BEDPADS PLACED ON BED AND POSITIONED FOR COMFORT.
[2020-01-20 05:39] LABS: BASOPHILS 0.6 % (0-2); EOSINOPHILS 2.5 % (0-7); HEMATOCRIT 33.4 % (36.0-48.0); HEMOGLOBIN 11.5 g/dL (12-16); IMMATURE GRANULOCYTES 0.3 % (0-5); LYMPHOCYTES 21.9 % (15-50); MCH 34.4 pg (26.0-34.0); MCHC 34.4 g/dL (31.0-37.0); MEAN PLATELET VOLUME 11.1 fL (7.4-10.4); MONOCYTES 11.2 % (2-11); NEUTROPHILS 63.5 % (40-80); PLATELET COUNT 334 10x3/uL (130-400); RBC 3.34 10x6/uL (4.00-5.40); RDW 15.9 % (11.5-14.5); WBC 9.6 10x3/uL (4.8-10.8)
[2020-01-20 06:24] LABS: ALBUMIN 1.6 g/dL (3.4-5.0); ALKALINE PHOSPHATASE 269 U/L (30-120); ALT (SGPT) 46 U/L (10-68); AMYLASE - SERUM 67 U/L (25-115); BILIRUBIN - TOTAL 2.49 mg/dL (0.2-1.3); CALC OSMOLALITY 260 mosm/kg (275-300); CALCIUM 7.1 mg/dL (8.5-10.1); CARBON DIOXIDE 21.3 mmol/L (21.0-32.0); CHLORIDE - SERUM 102 mmol/L (98-107); CREATININE - SERUM 0.4 mg/dL (0.6-1.3); GLUCOSE 73 mg/dL (74-106); LIPASE 53 U/L (73-393); MAGNESIUM - SERUM 1.6 mg/dL (1.8-2.4); POTASSIUM - SERUM 4.1 mmol/L (3.5-5.1); SODIUM 133 mmol/L (136-145); UREA NITROGEN 1 mg/dL (7-18); eGFR NON AFRICAN AMERICAN > 90 mL/min (90-120)
--- NOTE | 2020-01-20 09:15 | NUR ---
SHE IS ALERT, TALKING. SHE HAS A SAFETY PATROL OFFICER, ZOFRAN DRIP. THE CALL LIGHT IS WITHIN REACH AND THE BED ALARM IS ON. SHE GETS UP WITHOUT USING THE CALL LIGHT AT TIMES. EDUCATED HER ON IMPORTANCE OF LETTING US BE THERE WHEN SHE GETS OUT OF BED.
[2020-01-20 10:10] VITALS: BP 98/72
[2020-01-20 13:25] VITALS: BP 115/76
[2020-01-20 17:02] VITALS: BP 110/80
[2020-01-20 21:00] VITALS: BP 114/85
--- NOTE | 2020-01-21 07:00 | NUR ---
RECEIVED REPORT, ASSUMED CARE, BED LOWEST POSITION, SITTING UP IN BED, DENIES NEEDS, CALL LIGHT IN REACH, BREATHING EVEN UNLABORED, IV TO SUREKHA PATENT NS 20K @125, BED ALARM ON, WILL CONTINUE POC
[2020-01-21 07:15] VITALS: BP 103/73
[2020-01-21 12:04] VITALS: BP 102/74
[2020-01-21 12:15] LABS: BASOPHILS 0.7 % (0-2); EOSINOPHILS 3.1 % (0-7); HEMATOCRIT 29.2 % (36.0-48.0); IMMATURE GRANULOCYTES 0.4 % (0-5); LYMPHOCYTES 20.7 % (15-50); MCH 34.2 pg (26.0-34.0); MCHC 34.2 g/dL (31.0-37.0); MEAN PLATELET VOLUME 11.8 fL (7.4-10.4); MONOCYTES 11.3 % (2-11); NEUTROPHILS 63.8 % (40-80); PLATELET COUNT 323 10x3/uL (130-400); RBC 2.92 10x6/uL (4.00-5.40); RDW 16.2 % (11.5-14.5); WBC 7.4 10x3/uL (4.8-10.8)
[2020-01-21 12:25] LABS: ALBUMIN 1.4 g/dL (3.4-5.0); ALKALINE PHOSPHATASE 232 U/L (30-120); ALT (SGPT) 38 U/L (10-68); BILIRUBIN - TOTAL 1.04 mg/dL (0.2-1.3); CALC OSMOLALITY 260 mosm/kg (275-300); CARBON DIOXIDE 21.1 mmol/L (21.0-32.0); CHLORIDE - SERUM 102 mmol/L (98-107); CREATININE - SERUM 0.5 mg/dL (0.6-1.3); GLUCOSE 99 mg/dL (74-106); MAGNESIUM - SERUM 1.5 mg/dL (1.8-2.4); POTASSIUM - SERUM 3.6 mmol/L (3.5-5.1); PROTEIN - SERUM 4.8 g/dL (6.4-8.2); SODIUM 132 mmol/L (136-145); UREA NITROGEN 1 mg/dL (7-18); eGFR NON AFRICAN AMERICAN > 90 mL/min (90-120)
[2020-01-21 15:42] VITALS: BP 107/83
--- NOTE | 2020-01-21 19:00 | NUR ---
BEDSIDE REPORT RECEIVED AND CARE OF PT ASSUMED. PT LYING IN HIGH LYNN'S POSITION WATCHING TV. IV TO RIGHT UPPER ARM PATENT WITH NS W/ 20 KCL INFUSING AT 125 ML/HR. WILL MONITOR FOR NEEDS.
[2020-01-21 20:00] VITALS: BP 108/77
--- NOTE | 2020-01-21 21:08 | NUR ---
HS MEDICATIONS GIVEN TO INCLUDE MORPHINE FOR PAIN. WILL CONTINUE TO MONITOR FOR NEEDS.
[2020-01-22] VITALS: BP 95/70
--- NOTE | 2020-01-22 00:59 | NUR ---
GAVE MORPHINE AND ZOFRAN PER REQUEST FOR PAIN AND NAUSEA.
[2020-01-22 04:00] VITALS: BP 112/86
[2020-01-22 06:23] LABS: BASOPHILS 0.6 % (0-2); EOSINOPHILS 1.9 % (0-7); HEMATOCRIT 32.8 % (36.0-48.0); HEMOGLOBIN 11.2 g/dL (12-16); IMMATURE GRANULOCYTES 0.4 % (0-5); LYMPHOCYTES 28.8 % (15-50); MCH 34.3 pg (26.0-34.0); MCHC 34.1 g/dL (31.0-37.0); MCV 100.3 fL (80.0-100.0); MEAN PLATELET VOLUME 10.9 fL (7.4-10.4); MONOCYTES 10.5 % (2-11); NEUTROPHILS 57.8 % (40-80); PLATELET COUNT 340 10x3/uL (130-400); RBC 3.27 10x6/uL (4.00-5.40); RDW 16.1 % (11.5-14.5)
[2020-01-22 06:52] LABS: ALBUMIN 1.5 g/dL (3.4-5.0); ALKALINE PHOSPHATASE 231 U/L (30-120); ALT (SGPT) 37 U/L (10-68); BILIRUBIN - TOTAL 1.26 mg/dL (0.2-1.3); CALC OSMOLALITY 253 mosm/kg (275-300); CALCIUM 7.3 mg/dL (8.5-10.1); CARBON DIOXIDE 19.6 mmol/L (21.0-32.0); CHLORIDE - SERUM 100 mmol/L (98-107); CREATININE - SERUM 0.5 mg/dL (0.6-1.3); GLUCOSE 87 mg/dL (74-106); LIPASE 90 U/L (73-393); MAGNESIUM - SERUM 1.7 mg/dL (1.8-2.4); POTASSIUM - SERUM 4.2 mmol/L (3.5-5.1); PROTEIN - SERUM 5.1 g/dL (6.4-8.2); SODIUM 129 mmol/L (136-145); UREA NITROGEN 1 mg/dL (7-18); eGFR NON AFRICAN AMERICAN > 90 mL/min (90-120)
[2020-01-22 08:37] VITALS: BP 97/70
--- NOTE | 2020-01-22 09:14 | NUR ---
PT REQUESTED PAIN MEDICATION, ADMINISTERED PRN PAIN MEDICATION REQUESTED NO OTHER NEEDS AT THIS TIME, CONTINUE WITH PLAN OF CARE
--- NOTE | 2020-01-22 09:38 | NUR ---
PT C/O PAIN MEDICATION NOT WORKING AND WANTS DR AMADOR. EXXPLAINED THAT CORPORATE SAFETY MANAGER IS ON FLOOR AND WILL BE IN SHORTLY. CONTINUE WITH PLAN OF CARE
[2020-01-22 12:00] VITALS: BP 104/77
--- NOTE | 2020-01-22 12:48 | NUR ---
LYING IN BED,WITHOUT SIGNS OF DISTRESS
--- NOTE | 2020-01-22 15:41 | NUR ---
PT ON CL STATES SHE NEEDS TO GET HER BOLUS AND WANTS TO KNOW FREQUENCY SO SHE CAN SET AN ALARM FOR IT. EXPLAINED TO PT THAT THIS IS NOT HOW THIS WORKS PT STATES INSPECTOR TUBES HELPS TAKES EDGE OFF BUT IS STILL HURTING REAL BAD. ENCOURAGED PT TO VOICE CONCERN TO HOSPITALIST. CL IN REACH. CONTINUE WITH PLAN OF CARE
[2020-01-22 16:00] VITALS: BP 102/71
--- NOTE | 2020-01-22 19:00 | NUR ---
BEDSIDE REPORT RECEIVED AND CARE OF PT ASSUMED. PT LYING IN HIGH LYNN'S POSITION WATCHING TV. IV TO RIGHT UPPER ARM PATENT WTIH NS W/ 20 KCL @ 125 ML/HR, ZOFRAN INFUSING AT 4.7 ML/HR, AND A AUTOMATION QA ANALYST WITH DILAUDID IN USE FOR PAIN CONTROL.
[2020-01-22 20:55] VITALS: BP 113/80
--- NOTE | 2020-01-22 21:00 | NUR ---
HS MEDICATIONS GIVEN. WILL CONTINUE TO MONITOR FOR NEEDS.
--- NOTE | 2020-01-22 21:42 | NUR ---
GAVE BOLUS DOSE OF DILAUDID 0.4 MG VIA CHEF BROILER OR FRY PER REQUEST.
--- NOTE | 2020-01-23 01:14 | NUR ---
PT AWAKE AND TEARFUL DUE TO NOT BEING ABLE TO SLEEP BECAUSE OF PT IN NEXT ROOM YELLING ALL NIGHT.
--- NOTE | 2020-01-23 01:27 | NUR ---
PT SITTING UP IN BED EATING FOOD THAT SHE SAVED FROM [employer] TRAYS, AND DRINKING COFFEE....SAYS THAT SHE IS FEELING BETTER NOW.
[2020-01-23 06:19] LABS: BASOPHILS 0.7 % (0-2); EOSINOPHILS 1.9 % (0-7); HEMATOCRIT 34.7 % (36.0-48.0); HEMOGLOBIN 11.9 g/dL (12-16); IMMATURE GRANULOCYTES 0.6 % (0-5); LYMPHOCYTES 23.8 % (15-50); MCH 34.9 pg (26.0-34.0); MCHC 34.3 g/dL (31.0-37.0); MCV 101.8 fL (80.0-100.0); MEAN PLATELET VOLUME 11.3 fL (7.4-10.4); MONOCYTES 8.6 % (2-11); NEUTROPHILS 64.4 % (40-80); PLATELET COUNT 362 10x3/uL (130-400); RBC 3.41 10x6/uL (4.00-5.40); RDW 16.3 % (11.5-14.5); WBC 8.5 10x3/uL (4.8-10.8)
[2020-01-23 06:49] LABS: ALKALINE PHOSPHATASE 255 U/L (30-120); ALT (SGPT) 41 U/L (10-68); BILIRUBIN - TOTAL 1.14 mg/dL (0.2-1.3); CALCIUM 7.2 mg/dL (8.5-10.1); CHLORIDE - SERUM 99 mmol/L (98-107); MAGNESIUM - SERUM 1.7 mg/dL (1.8-2.4); PROTEIN - SERUM 5.8 g/dL (6.4-8.2); SODIUM 131 mmol/L (136-145)
[2020-01-23 06:54] VITALS: BP 114/82
[2020-01-23 07:45] LABS: CALC OSMOLALITY 256 mosm/kg (275-300); CREATININE - SERUM 0.2 mg/dL (0.6-1.3); LIPASE 148 U/L (73-393); UREA NITROGEN 2 mg/dL (7-18)
[2020-01-23 07:46] LABS: ALBUMIN 1.9 g/dL (3.4-5.0); eGFR NON AFRICAN AMERICAN > 90 mL/min (90-120)
[2020-01-23 07:47] LABS: POTASSIUM - SERUM 5.1 mmol/L (3.5-5.1)
[2020-01-23 07:49] LABS: GLUCOSE 57 mg/dL (74-106)
--- NOTE | 2020-01-23 07:49 | NUR ---
RECEIVED CALL FROM LAB. PT GLUCOSE IS 57. WILL ADMINISTER ORANGE JUICE AND ENCOURAGE PT TO EAT. CONTINUE WITH PLAN OF CARE.
[2020-01-23 08:09] VITALS: BP 105/63
--- NOTE | 2020-01-23 11:41 | NUR ---
LYING IN BED,WITHOUT NEEDS.CALL LIGHT IN REACH
[2020-01-23 12:10] LABS: CA 27-29 8.1 U/mL (0.0-38.6)
--- NOTE | 2020-01-23 12:10 | NUR ---
CALL TO DR BANDA PER PATIENT REQUEST. SHE STATES DR BANDA WANTS TO BE CALLED WHEN HER FAMILY ARRIVES AT HOSPITAL.
--- NOTE | 2020-01-23 12:15 | NUR ---
CALL BACK FROM DR. BANDA. RESULTS ARE STILL PENDING. SHE WILL SPEAK WITH PATIENT AND FAMILY WHEN RESULTS COME BACK.
[2020-01-23 12:54] VITALS: BP 100/75
[2020-01-23 14:10] LABS: CA125 24.4 U/mL (0.0-38.1); CEA 2.2 ng/mL (0.0-4.7)
--- NOTE | 2020-01-23 14:42 | NUR ---
Nutrition follow-up: Diet advanced to regular as tolerated soft PO intake continues to be poor 2/2 nausea, getting full fast and some bloating. Pt also with increased pain and pain meds. Labs reviewed WT: 111# Pt would benefit from ProcalAmine PPN @ 50 ml/hr short-term due to poor po intake at this time RDN following.
[2020-01-23 17:24] VITALS: BP 104/68
[2020-01-23 20:00] VITALS: BP 114/85
--- NOTE | 2020-01-23 21:00 | NUR ---
PT SITTING UP IN BED CRYING. ACCIDENTALLY PULLED IV OUT WHILE GETTING TO BEDSIDE COMMODE TO VOID. RESITED 22G IV TO RIGHT UPPER ARM. NS @ 100 WITH DILAUDID LEARNING STRATEGIST FOR PAIN. GAVE HS MEDS. PT REQUESTED AND GIVEN PUDDING AND SANDWICH TRAY. PT STILL HAD DINNER TRAY BUT STATED SHE WANTED TO KEEP TRYING TO EAT IT. DENIES OTHER NEEDS. CL IN REACH, WILL CTM
[2020-01-24] VITALS (10 sets, daily range): BP systolic 62–106; BP diastolic 38–68
[2020-01-24 07:13] LABS: BASOPHILS 0.4 % (0-2); EOSINOPHILS 0.9 % (0-7); IMMATURE GRANULOCYTES 0.5 % (0-5); LYMPHOCYTES 33.1 % (15-50); MCH 34.1 pg (26.0-34.0); MCHC 34.5 g/dL (31.0-37.0); MEAN PLATELET VOLUME 10.2 fL (7.4-10.4); MONOCYTES 8.9 % (2-11); NEUTROPHILS 56.2 % (40-80); PLATELET COUNT 385 10x3/uL (130-400); RBC 2.93 10x6/uL (4.00-5.40); RDW 15.7 % (11.5-14.5)
[2020-01-24 07:29] LABS: ALBUMIN 1.6 g/dL (3.4-5.0); ALKALINE PHOSPHATASE 216 U/L (30-120); ALT (SGPT) 37 U/L (10-68); BILIRUBIN - TOTAL 1.04 mg/dL (0.2-1.3); CALC OSMOLALITY 253 mosm/kg (275-300); CALCIUM 7.1 mg/dL (8.5-10.1); CARBON DIOXIDE 24.4 mmol/L (21.0-32.0); CHLORIDE - SERUM 96 mmol/L (98-107); GLUCOSE 72 mg/dL (74-106); MAGNESIUM - SERUM 1.6 mg/dL (1.8-2.4); PROTEIN - SERUM 5.4 g/dL (6.4-8.2); SODIUM 129 mmol/L (136-145); UREA NITROGEN 2 mg/dL (7-18)
[2020-01-24 07:33] LABS: WBC 10.8 10x3/uL (4.8-10.8)
[2020-01-24 07:51] LABS: CREATININE - SERUM 0.5 mg/dL (0.6-1.3); LIPASE 105 U/L (73-393); eGFR NON AFRICAN AMERICAN > 90 mL/min (90-120)
[2020-01-24 07:52] LABS: POTASSIUM - SERUM 3.1 mmol/L (3.5-5.1)
--- NOTE | 2020-01-24 08:01 | NUR ---
PT K+ YESTERDAY WAS 5.1 THIS MORNING LABS SHOWED K+ AT 3.1. CALLED LAB AND ASKED FOR REDRAW BEFORE ALERTING DOCTORS. PT LYING IN BED MOANING AND STATES PAIN STILL NOT CONTROLLED. PT HAS CT TODAY CONTINUE WITH PLAN OF CARE
[2020-01-24 08:03] LABS: INR 1.3 (0.85-1.17); PROTIME 16.1 SECONDS (11.6-15.0)
--- NOTE | 2020-01-24 11:09 | NUR ---
PT K+ CAME BACK AGAIN 2.9 WILL REPLETE PER PROTOCOL
--- NOTE | 2020-01-24 19:15 | NUR ---
ENTERED PT ROOM DURING BEDSIDE REPORT, PT LYING IN BED SLEEPING. NURSES AID AT BEDSIDE CHECKING VITALS. BP 70/40S. CHECKED MANUAL BP, 68/36. PT FLUIDS WERE NS INFUSING @ 50. INCREASED TO 100ML/HR PER ORDER. DAY SHIFT NURSE STATED PT BP HAS BEEN STABLE ALL DAY. TRIED TO WAKE PT UP AND SHE WAS LETHARGIC AND EYES ROLLING BACK FALLING ASLEEP I WAS SPEAKING WITH HER. WHILE AWAKE SHE WAS CONFUSED TO WHAT TIME IT IS AND WHAT IS HAPPENING. PUT PT HEAD DOWN AND FEET UP. PLACED CONT VITALS MACHINE ON. WILL CTM
--- NOTE | 2020-01-24 21:00 | NUR ---
PT BP STILL RUNNING 70/50S. NATHAN BARRETT APN PAGED. ORDERS RECIEVED TO INCREASE FLUIDS TO 125 AFTER RUNNING 1L NS BOLUS. STARTED BOLUS. FEET ARE UP. PT STILL LETHARGIC. ORDERS FOR STAT CBC AND BMP. CALLED LAB TO COME DRAW. PLACED PT ON O2 2L/NC FOR O2 DROPPING TO 88%. O2 94% ON 2L. NATHAN STATED TO CALL BACK AFTER 500ML INFUSED OF BOLUS AND LET HIM KNOW THE BP. IF STILL LOW, PT WOULD BE SENT TO ICU. CALLED SUPVERVISOR AND UPDATED
[2020-01-24 22:07] LABS: BASOPHILS 0.4 % (0-2); EOSINOPHILS 0.6 % (0-7); HEMOGLOBIN 8.5 g/dL (12-16); IMMATURE GRANULOCYTES 0.4 % (0-5); LYMPHOCYTES 20.5 % (15-50); MCH 33.6 pg (26.0-34.0); MCV 98.8 fL (80.0-100.0); MEAN PLATELET VOLUME 10.3 fL (7.4-10.4); MONOCYTES 8.6 % (2-11); NEUTROPHILS 69.5 % (40-80); RBC 2.53 10x6/uL (4.00-5.40); RDW 15.7 % (11.5-14.5)
[2020-01-24 22:16] LABS: PLATELET COUNT 288 10x3/uL (130-400); WBC 6.7 10x3/uL (4.8-10.8)
[2020-01-24 22:20] LABS: CALC OSMOLALITY 260 mosm/kg (275-300); CARBON DIOXIDE 25.5 mmol/L (21.0-32.0); CHLORIDE - SERUM 103 mmol/L (98-107); CREATININE - SERUM 0.5 mg/dL (0.6-1.3); GLUCOSE 96 mg/dL (74-106); SODIUM 132 mmol/L (136-145); UREA NITROGEN 2 mg/dL (7-18); eGFR NON AFRICAN AMERICAN > 90 mL/min (90-120)
[2020-01-24 22:23] LABS: POTASSIUM - SERUM 3.5 mmol/L (3.5-5.1)
[2020-01-24 22:24] LABS: CALCIUM 6.9 mg/dL (8.5-10.1)
--- NOTE | 2020-01-24 22:30 | NUR ---
PT BP STILL 68/42 MANUALLY AFTER 500ML OF NS BOLUS. CALLED NATHAN AND UPDATED. ORDERS RECIEVED FOR LEVOPHED DRIP AND MOVE TO ICU. ORDERED STAT CT OF ABD/PELVIS ONCE STARTED ON LEVOPHED. STAT ABGS ORDERED. CALLED REPORT TO CHUYITA FOR CV08. TRANSFERED PT TO ROOM WITH ALL BELONGINGS.
[2020-01-25] VITALS (85 sets, daily range): BP systolic 80–141; BP diastolic 48–99
[2020-01-25 04:13] LABS: BASOPHILS 0.3 % (0-2); EOSINOPHILS 0.1 % (0-7); HEMATOCRIT 27.7 % (36.0-48.0); HEMOGLOBIN 9.7 g/dL (12-16); IMMATURE GRANULOCYTES 0.4 % (0-5); LYMPHOCYTES 9.9 % (15-50); MCH 34.2 pg (26.0-34.0); MCV 97.5 fL (80.0-100.0); MEAN PLATELET VOLUME 10.1 fL (7.4-10.4); MONOCYTES 9.6 % (2-11); NEUTROPHILS 79.7 % (40-80); PLATELET COUNT 391 10x3/uL (130-400); RBC 2.84 10x6/uL (4.00-5.40); RDW 15.7 % (11.5-14.5); WBC 7.9 10x3/uL (4.8-10.8)
[2020-01-25 04:23] LABS: ALBUMIN 1.5 g/dL (3.4-5.0); ALKALINE PHOSPHATASE 205 U/L (30-120); ALT (SGPT) 37 U/L (10-68); BILIRUBIN - TOTAL 1.03 mg/dL (0.2-1.3); CALC OSMOLALITY 259 mosm/kg (275-300); CARBON DIOXIDE 21.6 mmol/L (21.0-32.0); CHLORIDE - SERUM 102 mmol/L (98-107); CREATININE - SERUM 0.5 mg/dL (0.6-1.3); GLUCOSE 111 mg/dL (74-106); MAGNESIUM - SERUM 1.4 mg/dL (1.8-2.4); POTASSIUM - SERUM 3.5 mmol/L (3.5-5.1); PROTEIN - SERUM 5.2 g/dL (6.4-8.2); SODIUM 131 mmol/L (136-145); UREA NITROGEN 2 mg/dL (7-18); eGFR NON AFRICAN AMERICAN > 90 mL/min (90-120)
--- NOTE | 2020-01-25 11:40 | NUR ---
PT MAX ON HEALTH CARE SANITARY TECHNICIAN, DR PINEDA IN UNIT AND NOTIFIED THAT PT KEEPS HEALTH CARE SANITARY TECHNICIAN BUTTON IN HAND AND CONTINUALLY COMPLAINING OF ABD PAIN, ORDERS TO DC HEALTH CARE SANITARY TECHNICIAN AND START PRN IV
--- NOTE | 2020-01-25 12:39 | NUR ---
PT HAD INCONTINENCE OF URINE, PERICARE AND LINENS CHANGE, PURE WICK CHANGED
[2020-01-26] VITALS (62 sets, daily range): BP systolic 89–140; BP diastolic 52–99; Ht 162.6 cm; Wt 51.8 kg
[2020-01-26 04:44] LABS: BASOPHILS 0.4 % (0-2); EOSINOPHILS 3.2 % (0-7); HEMATOCRIT 27.9 % (36.0-48.0); HEMOGLOBIN 9.6 g/dL (12-16); IMMATURE GRANULOCYTES 6.2 % (0-5); LYMPHOCYTES 25.6 % (15-50); MCH 33.1 pg (26.0-34.0); MCHC 34.4 g/dL (31.0-37.0); MCV 96.2 fL (80.0-100.0); MEAN PLATELET VOLUME 9.9 fL (7.4-10.4); MONOCYTES 13.2 % (2-11); NEUTROPHILS 51.4 % (40-80); RDW 15.6 % (11.5-14.5)
[2020-01-26 04:53] LABS: PLATELET COUNT 305 10x3/uL (130-400)
[2020-01-26 05:10] LABS: ALBUMIN 1.6 g/dL (3.4-5.0); ALKALINE PHOSPHATASE 213 U/L (30-120); ALT (SGPT) 37 U/L (10-68); BILIRUBIN - TOTAL 0.85 mg/dL (0.2-1.3); CARBON DIOXIDE 20.6 mmol/L (21.0-32.0); CHLORIDE - SERUM 99 mmol/L (98-107); CREATININE - SERUM 0.4 mg/dL (0.6-1.3); GLUCOSE 110 mg/dL (74-106); MAGNESIUM - SERUM 1.5 mg/dL (1.8-2.4); PROTEIN - SERUM 5.3 g/dL (6.4-8.2); SODIUM 129 mmol/L (136-145); eGFR NON AFRICAN AMERICAN > 90 mL/min (90-120)
[2020-01-26 05:49] LABS: CALC OSMOLALITY 255 mosm/kg (275-300); UREA NITROGEN 1 mg/dL (7-18)
[2020-01-26 05:51] LABS: CALCIUM 6.7 mg/dL (8.5-10.1); POTASSIUM - SERUM 2.9 mmol/L (3.5-5.1)
--- NOTE | 2020-01-26 06:11 | NUR ---
LAB CALLED WITH K+ OF 2.9, ELECTROLYTE PROTOCOL FOLLOWED.
--- NOTE | 2020-01-26 09:13 | NUR ---
0700 PT RECIEVED IN BED ALERT AND ORIENTED VSS RUE PIV PATENT, PURE WICK WORKING AND POSITIONED APPROPRIATELY, BIOPSY SITE CDI 0900 TOOK AM MEDS WITHOUT DIFFICULTY, PAIN MEDICATION GIVEN FOR JOINT AND ABD PAIN
--- NOTE | 2020-01-26 13:57 | NUR ---
NUTRITION FOLLOW UP: COMMENTS: Met with patient this am. Patient stated she has been having difficulty eating due to stomach ulcers, stomach pain, and thrush. She stated she has been nauseated today. Patient stated she eats her food very slowly in order to tolerate it. DIET: Regular Diet PO INTAKE: 0% for last 6 meals WEIGHT: 112 lbs on 01/25 BM: No BM recorded since admit SIG LABS: Na-129(L), K-2.99L) Cr-0.4(L), BUN-1(L), Ca-6.7(L), Mag-6.7(L), SIG MEDS: Vit D, Zofran, Tums, Nystain, Colace, Protonix, KCl, MagOx, NS @ 100 ml/hr RECOMMENDATIONS: -Continue regular diet as tolerated -RD available for nutrition support recs if needed -Encourage po intake -Assist with feeding if needed RD to continue to follow and monitor patient DHS
--- NOTE | 2020-01-26 13:59 | NUR ---
PT REFUSED PHYSICAL THERAPY
--- NOTE | 2020-01-26 15:02 | MORECARE ---
CASE MANAGEMENT DISCHARGE SUMMARY PATIENT: WILLIAM BRYANT UNIT: [id number] ADM DATE: 01/15/20 AGE: 59 : 62 SEX: F ROOM/BED: [facility] AUTHOR: SEAN PANIAGUA PHYSICIAN: REFERRING PHYSICIAN: JEREMI COOK DO DATE OF SERVICE: 01/26/20 Discharge Plan Patient Name: WILLIAM BRYANT Facility: [facility]:[place] : 1960 Planned Disposition: Home Anticipated Discharge Date: Discharge Date: Expected LOS: Initial Reviewer: [id number] Initial Review Date: 01/15/2020 Generated: 01/26/20 4:01 pm DCP- Discharge Planning Updated by [email or web address]: Em Carbajal on 01/17/20 3:[address] Patient Name: WILLIAM BRYANT Admission Status: ER Accout number: [id number] Admission Date: 01-15-2020 : 1960 Admission Diagnosis:UNSPECIFIED ABDOMINAL PAIN Attending: JEREMI COOK Current LOS: 2 Anticipated DC Date: Planned Disposition: Home Primary Insurance: Discharge Planning Comments: CM met with patient at bedside after explaining CM role and obtaining verbal consent. CM discussed availability / needs of home health, REHAB and medical equipment. PATIENT STATES SHE NEEDS A BSC AND SHOWER CHAIR, LIDYA FOR OBRIENS. PLANS TO DC TO HOME WHEN STABLE. DENIES NEED FOR HH, OR REHAB. CM TO FOLLOW AND ASSIST NEEDED, Line Therapist: Em Carbajal DCPIA - Discharge Planning Initial Assessment Updated by [id number]: Em Carbajal on 01/17/20 4:23 pm * Is the patient Alert and Oriented? Yes * PCP JUDSON * Pharmacy [facility] * Preadmission Environment Home Alone * ADLs Independent * Other Equipment WALKER * Community resources currently utilized None * Additional services required to return to the preadmission environment? No * Can the patient safely return to the preadmission environment? Yes * Has this patient been hospitalized within the prior 30 days at any hospital? No External Providers [facility] Next Contact Date: Service Request Date: Service Type: Resolution: Reviewer: Comments: Coverage Notice Reviewer: [id number] - Em Carbajal Notice Issued Date-Time: 01/17/2020 16:24 Notice Type: Patient Choice Letter Notice Delivered To: Relationship to Patient: Engineering Program Manager Name: Delivery Method: - Milli Days: Prior Verbal Notification: Recipient Understood Notice: Recipient Signature: Med Rec Note Co-signed by Attending: Coverage Notice Comment: NIKITA OBRIENS FOR BSC AND SC Last DP export: 01/17/20 3:31 p Patient Name: WILLIAM BRYANT Page [phone] at 1502 All edits/amendments must be made on the electronic document DICTATION DATE: 01/26/20 1501 TECHNICIAN SUBMARINE CABLE EQUIPMENT: CAMI 01/26/20 1501 RPT#: [id number] ME DATE: STATUS: ADM IN [facility] [address] [place] [address] END OF REPORT
--- NOTE | 2020-01-26 17:11 | NUR ---
THROUGHOUT DAY PT STATES SHE CANNOT TAKE MEDICATION IT WILL MAKE HER THROW UP, TAKES SEVERAL ATTEMPTS AND EXPLAINATION OF EACH MEDICATIONS CONTINUED IMPORTANCE FOR HER TO TAKE MEDICATIONS THEN MAKES A GAGGING NOISE AFTER TAKING MEDICATION, HAS SPIT THROUGHOUT DAY IN EMESIS BAG BUT NO EMESIS HAS BEEN NOTED AND PT DENIES NEEDING ZOFRAN. AFTER REFUSING PHYSICAL THERAPY SHE STATES THAT SHE IS MAD SHE WAS ASKED TO DO PHYSICAL THERAPY BECAUSE SHE WAS "THROWING UP AN HOUR AGO" REMINDED PT THAT SHE REQUESTED PHYSICAL THERAPY AND THAT SHE TOLD DR PINEDA SHE WOULD DO PHYSICAL THERAPY TO GET READY TO GO HOME TOMORROW. SHE THEN CLOSED HER EYES AND ROLLED FACING AWAY.
--- NOTE | 2020-01-26 19:33 | MORECARE ---
CASE MANAGEMENT DISCHARGE SUMMARY PATIENT: WILLIAM BRYANT UNIT: [id number] ADM DATE: 01/15/20 AGE: 59 : 62 SEX: F ROOM/BED: [facility] AUTHOR: ARCELIA,DOC PHYSICIAN: REFERRING PHYSICIAN: JEREMI COOK DO DATE OF SERVICE: 01/26/20 Discharge Plan Patient Name: WILLIAM BRYANT Facility: [facility]:[place] : 1960 Planned Disposition: Home Anticipated Discharge Date: Discharge Date: Expected LOS: Initial Reviewer: [id number] Initial Review Date: 01/15/2020 Generated: 01/26/20 8:32 pm Comments DCP- Discharge Planning Updated by [email or web address]: Breanne Armenta on 01/26/20 6:[address] CM contacted [facility] for BSC anticipated discharge for this weekend. DME delivered BSC to patient's room. CM will continue to follow and assist as needed with discharge planning / needs. DCP- Discharge Planning Updated by [id number]: Em Carbajal on 01/17/20 3:[address] Patient Name: WILLIAM BRYANT Admission Status: ER Accout number: [id number] Admission Date: 01-15-2020 : 1960 Admission Diagnosis:UNSPECIFIED ABDOMINAL PAIN Attending: JEREMI COOK Current LOS: 2 Anticipated DC Date: Planned Disposition: Home Primary Insurance: [facility] Discharge Planning Comments: CM met with patient at bedside after explaining CM role and obtaining verbal consent. CM discussed availability / needs of home health, REHAB and medical equipment. PATIENT STATES SHE NEEDS A BSC AND SHOWER CHAIR, LIDYA FOR OBRIENS. PLANS TO DC TO HOME WHEN STABLE. DENIES NEED FOR HH, OR REHAB. CM TO FOLLOW AND ASSIST NEEDED, Window Unit Air Conditioning Mechanic: Em Carbajal DCPIA - Discharge Planning Initial Assessment Updated by [id number]: Em Carbajal on 01/17/20 4:23 pm * Is the patient Alert and Oriented? Yes * PCP JUDSON * Pharmacy [facility] * Preadmission Environment Home Alone * ADLs Independent * Other Equipment WALKER * Community resources currently utilized None * Additional services required to return to the preadmission environment? No * Can the patient safely return to the preadmission environment? Yes * Has this patient been hospitalized within the prior 30 days at any hospital? No Coverage Notice Reviewer: [id number] Julianne Carbajal Notice Issued Date-Time: 01/17/2020 16:24 Notice Type: Patient Choice Letter Notice Delivered To: Relationship to Patient: Rehanger Name: Delivery Method: - Milli Days: Prior Verbal Notification: Recipient Understood Notice: Recipient Signature: Med Rec Note Co-signed by Attending: Coverage Notice Comment: NIKITA COON FOR BSC AND SC Last DP export: 01/26/20 2:02 p Patient Name: WILLIAM BRYANT Page [id number] at 1933 All edits/amendments must be made on the electronic document DICTATION DATE: 01/26/201932 FIXER SUPERVISOR: CAMI 01/26/201932 RPT#: [id number] DC DATE: STATUS: ADM IN [facility] [address] [place] [address] END OF REPORT
[2020-01-27] VITALS (44 sets, daily range): BP systolic 79–116; BP diastolic 51–84
--- NOTE | 2020-01-27 06:10 | NUR ---
admin am meds, pt became nauseous and vomitted moderate amount of green liquid and undigested food.
[2020-01-27 12:13] LABS: BASOPHILS 0.5 % (0-2); EOSINOPHILS 0.8 % (0-7); HEMOGLOBIN 9.2 g/dL (12-16); MCH 33.8 pg (26.0-34.0); MCHC 35.4 g/dL (31.0-37.0); MCV 95.6 fL (80.0-100.0); MEAN PLATELET VOLUME 9.8 fL (7.4-10.4); MONOCYTES 12.6 % (2-11); NEUTROPHILS 53.1 % (40-80); PLATELET COUNT 278 10x3/uL (130-400); RBC 2.72 10x6/uL (4.00-5.40); RDW 15.6 % (11.5-14.5); WBC 6.2 10x3/uL (4.8-10.8)
[2020-01-27 12:48] LABS: ALBUMIN 1.4 g/dL (3.4-5.0); ALKALINE PHOSPHATASE 203 U/L (30-120); ALT (SGPT) 28 U/L (10-68); BILIRUBIN - TOTAL 0.64 mg/dL (0.2-1.3); CALCIUM 7.1 mg/dL (8.5-10.1); CARBON DIOXIDE 22.2 mmol/L (21.0-32.0); CHLORIDE - SERUM 103 mmol/L (98-107); CREATININE - SERUM 0.4 mg/dL (0.6-1.3); GLUCOSE 92 mg/dL (74-106); MAGNESIUM - SERUM 1.5 mg/dL (1.8-2.4); POTASSIUM - SERUM 3.9 mmol/L (3.5-5.1); PROTEIN - SERUM 4.8 g/dL (6.4-8.2); SODIUM 133 mmol/L (136-145); eGFR NON AFRICAN AMERICAN > 90 mL/min (90-120)
[2020-01-27 13:09] LABS: CALC OSMOLALITY 261 mosm/kg (275-300); PHOSPHOROUS 1.1 mg/dL (2.5-4.9); UREA NITROGEN 1 mg/dL (7-18)
--- NOTE | 2020-01-27 13:15 | NUR ---
UP TO CHAIR WITH ASSISTANCE X ONE. STATES LEGS ARE ASLEEP BUT BEARS WEIGHT AND TRANSFERS TO CHAIR WITH MY ASSISTANCE. BED SATURATED WITH URINE. UPON SITTING DOWN IN CHAIR SHE ARCHES HER BACK AND SAYS THAT SHE IS DIZZY AND FLAILS HER ARMS AROUND AND URINATES IN THE CHAIR. CHAIR PLACED IN RECLINING POSITION. BP 118/85. COMPLETE CHG BATH DONE. ADULT BRIEF PLACED ON PATIENT AND LINENS CHANGED ON BED AND CHAIR. 1345: ATTEMPTED TO ASSIST BACK TO BED WITH 2 NURSES ASSISSTING. REFUSES TO BEAR WEIGHT. BECOMES LIMP AND SAYS SHE IS FALLING. MANUALLY LIFTED BACK TO CHAIR BY 2 NURSES. 1650: AFTER NUMEROUS ATTEMPTS TO ASSIST BACK TO BED AND HER REFUSING TO BEAR WEIGHT. INCONTINENCE CARE DONE AND CHAIR PLACED NEXT TO THE BED AND PATIENT ASSISTED WITH STANDING AND THREW HERSELF ONTO THE BED. REPOSITIONED SELF. SIDE RAILS UP X 2 AND CALL LIGHT WITHIN REACH. PURE WICK GIVEN TO PATIENT TO PLACE IN POSITION TO AID WITH URINE COLLECTION.
--- NOTE | 2020-01-28 03:45 | NUR ---
REPORT CALLED TO KYLE ON MED SURG
[2020-01-28 04:30] VITALS: BP 107/78
--- NOTE | 2020-01-28 04:45 | NUR ---
PT TRANSFERED TO ROOM 2213 VIA WC ACCOMPANIED BY THIS RN. WIN BURKETT
--- NOTE | 2020-01-28 05:01 | NUR ---
RECEIVED TO ROOM FROM CVICU VIA WHEELCHAIR.AWAKE,ALERT.IV TO RFA INTACT WITHOUT REDNESS OR EDEMA NOTED. SR UP X 2. CL IN REACH
[2020-01-28 07:37] LABS: ALBUMIN 1.5 g/dL (3.4-5.0); ALKALINE PHOSPHATASE 211 U/L (30-120); ALT (SGPT) 30 U/L (10-68); CALC OSMOLALITY 260 mosm/kg (275-300); CARBON DIOXIDE 20.9 mmol/L (21.0-32.0); CHLORIDE - SERUM 104 mmol/L (98-107); CREATININE - SERUM 0.4 mg/dL (0.6-1.3); GLUCOSE 79 mg/dL (74-106); MAGNESIUM - SERUM 1.8 mg/dL (1.8-2.4); PROTEIN - SERUM 4.6 g/dL (6.4-8.2); SODIUM 133 mmol/L (136-145); UREA NITROGEN 1 mg/dL (7-18); eGFR NON AFRICAN AMERICAN > 90 mL/min (90-120)
[2020-01-28 07:45] LABS: BASOPHILS 0.6 % (0-2); EOSINOPHILS 1.4 % (0-7); HEMATOCRIT 26.8 % (36.0-48.0); HEMOGLOBIN 9.3 g/dL (12-16); IMMATURE GRANULOCYTES 1.2 % (0-5); LYMPHOCYTES 30.8 % (15-50); MCH 33.2 pg (26.0-34.0); MCHC 34.7 g/dL (31.0-37.0); MCV 95.7 fL (80.0-100.0); MEAN PLATELET VOLUME 10.1 fL (7.4-10.4); MONOCYTES 13.4 % (2-11); NEUTROPHILS 52.6 % (40-80); PLATELET COUNT 284 10x3/uL (130-400); RDW 15.8 % (11.5-14.5); WBC 6.5 10x3/uL (4.8-10.8)
--- NOTE | 2020-01-28 08:00 | NUR ---
RESTING IN BED, EYES CLOSED, NO DISTRESS NTOED
[2020-01-28 08:13] LABS: PHOSPHOROUS 1.7 mg/dL (2.5-4.9); POTASSIUM - SERUM 4.6 mmol/L (3.5-5.1)
[2020-01-28 09:49] VITALS: BP 109/76
[2020-01-28 17:21] VITALS: BP 86/62
--- NOTE | 2020-01-28 18:35 | NUR ---
PT REFUSING TO GET UP TO BSC, STATES THAT SHE IS AFRAID OF FALLING, WILL CALL STAFF AFTER SHE HAS ALREADY URINATED, BED ALARMS ON
[2020-01-28 20:00] VITALS: BP 98/65
[2020-01-29 04:30] VITALS: BP 105/65
--- NOTE | 2020-01-29 05:09 | NUR ---
I have reviewed this patient and I concur with the Shift Assessment completed by the Licensed Practical Nurse today this shift.
[2020-01-29 05:22] LABS: BASOPHILS 0.2 % (0-2); EOSINOPHILS 0.7 % (0-7); HEMATOCRIT 27.5 % (36.0-48.0); HEMOGLOBIN 9.7 g/dL (12-16); IMMATURE GRANULOCYTES 0.9 % (0-5); LYMPHOCYTES 23.8 % (15-50); MCH 33.9 pg (26.0-34.0); MCHC 35.3 g/dL (31.0-37.0); MCV 96.2 fL (80.0-100.0); MONOCYTES 9.6 % (2-11); NEUTROPHILS 64.8 % (40-80); RBC 2.86 10x6/uL (4.00-5.40); RDW 15.9 % (11.5-14.5)
[2020-01-29 05:28] LABS: PLATELET COUNT 349 10x3/uL (130-400); WBC 8.5 10x3/uL (4.8-10.8)
[2020-01-29 05:56] LABS: ALBUMIN 1.5 g/dL (3.4-5.0); ALKALINE PHOSPHATASE 209 U/L (30-120); ALT (SGPT) 27 U/L (10-68); BILIRUBIN - TOTAL 0.57 mg/dL (0.2-1.3); CALC OSMOLALITY 258 mosm/kg (275-300); CARBON DIOXIDE 19.3 mmol/L (21.0-32.0); CHLORIDE - SERUM 103 mmol/L (98-107); CREATININE - SERUM 0.5 mg/dL (0.6-1.3); GLUCOSE 95 mg/dL (74-106); MAGNESIUM - SERUM 1.6 mg/dL (1.8-2.4); PHOSPHOROUS 1.8 mg/dL (2.5-4.9); POTASSIUM - SERUM 3.4 mmol/L (3.5-5.1); PROTEIN - SERUM 4.9 g/dL (6.4-8.2); SODIUM 131 mmol/L (136-145); UREA NITROGEN 2 mg/dL (7-18); eGFR NON AFRICAN AMERICAN > 90 mL/min (90-120)
[2020-01-29 08:44] VITALS: BP 117/88
[2020-01-29] MEDS ORDERED: NYSTATIN100000 UN4 PO (10:52)
[2020-01-29] MEDS ORDERED: LEVOFLOXACIN500 MG PO (10:54)
[2020-01-29] MEDS ORDERED: FLAGYL500 MG PO (10:54)
[2020-01-29] MEDS ORDERED: PROTONIX40 MG PO (10:55)
[2020-01-29] MEDS ORDERED: CARAFATE1 G PO (10:56)
[2020-01-29] MEDS ORDERED: VITAMIN D PO (10:56)
[2020-01-29] MEDS ORDERED: TUMS PO (10:56)
[2020-01-29] MEDS ORDERED: FLORAJEN3 CAPS460 MG PO (10:57)
[2020-01-29] MEDS ORDERED: ANUSOL-HC 2.5%30 GM RC (10:58)
--- NOTE | 2020-01-29 12:28 | MORECARE ---
CASE MANAGEMENT DISCHARGE SUMMARY PATIENT: WILLIAM BRYANT UNIT: [id number] ADM DATE: 01/15/20 AGE: 59 : 62 SEX: F ROOM/BED: D.2213 AUTHOR: SEAN PANIAGUA PHYSICIAN: REFERRING PHYSICIAN: JEREMI COOK DO DATE OF SERVICE: 01/29/20 Discharge Plan Patient Name: WILLIAM BRYANT Facility: [facility]:[place] : 1960 Planned Disposition: Home Anticipated Discharge Date: Discharge Date: Expected LOS: Initial Reviewer: [id number] Initial Review Date: 01/15/2020 Generated: 01/29/20 1:27 pm Comments DCP- Discharge Planning Updated by [id number]: Saida Lopez on 01/29/20 11:[address] Patient is discharging home today, her will be her dedicated driver home. she has her BSC/shower chair at bedside. she denies any other needs at this time. She stated that she has [employer], but they do not take her insurance. She did not want/need any other dc needs. DCP- Discharge Planning Updated by [email or web address]: Breanne Armenta on 01/26/20 6:[address] CM contacted [facility] for BSC anticipated discharge for this weekend. DME delivered BSC to patient's room. CM will continue to follow and assist as needed with discharge planning / needs. DCP- Discharge Planning Updated by [id number]: Em Carbajal on 01/17/20 3:[address] Patient Name: WILLIAM BRYANT Admission Status: ER Accout number: [id number] Admission Date: 01-15-2020 : 1960 Admission Diagnosis:UNSPECIFIED ABDOMINAL PAIN Attending: JEREMI COOK Current LOS: 2 Anticipated DC Date: Planned Disposition: Home Primary Insurance: Discharge Planning Comments: CM met with patient at bedside after explaining CM role and obtaining verbal consent. CM discussed availability / needs of home health, REHAB and medical equipment. PATIENT STATES SHE NEEDS A BSC AND SHOWER CHAIR, LIDYA FOR [place]. PLANS TO DC TO HOME WHEN STABLE. DENIES NEED FOR HH, OR REHAB. CM TO FOLLOW AND ASSIST NEEDED, Acrobatic Rigger: Em Carbajal DCPIA - Discharge Planning Initial Assessment Updated by [id number]: Em Carbajal on 01/17/20 4:23 pm * Is the patient Alert and Oriented? Yes * PCP [facility] * Pharmacy [facility] * Preadmission Environment Home Alone * ADLs Independent * Other Equipment WALKER * Community resources currently utilized None * Additional services required to return to the preadmission environment? No * Can the patient safely return to the preadmission environment? Yes * Has this patient been hospitalized within the prior 30 days at any hospital? No External Providers External Provider: [facility] Next Contact Date: Service Request Date: Service Type: Resolution: Reviewer: Comments: Coverage Notice Reviewer: [id number] - Em Carbajal Notice Issued Date-Time: 01/17/2020 16:24 Notice Type: Patient Choice Letter Notice Delivered To: Relationship to Patient: Asphalt Distributor Tender Name: Delivery Method: - Milli Days: Prior Verbal Notification: Recipient Understood Notice: Recipient Signature: Med Rec Note Co-signed by Attending: Coverage Notice Comment: NIKITA COON FOR BSC AND SC Reviewer: [id number] - Saida Lopez Notice Issued Date-Time: 01/29/2020 12:15 Notice Type: IM Discharge Notice Notice Delivered To: Patient Relationship to Patient: Asphalt Distributor Tender Name: Delivery Method: HAND - Hand Delivered Milli Days: Prior Verbal Notification: Recipient Understood Notice: Yes Recipient Signature: Yes Med Rec Note Co-signed by Attending: Coverage Notice Comment: imm served and given Last DP export: 01/26/20 6:33 p Patient Name: WILLIAM BRYANT Page [id number] at 1228 All edits/amendments must be made on the electronic document DICTATION DATE: 01/29/20 1227 AIR COMPRESSOR ENGINEER: CAMI 01/29/20 1227 RPT#: [id number] DC DATE: STATUS: ADM IN [facility] [address] [place] [address] END OF REPORT
[2020-01-29 13:30] VITALS: BP 121/83
--- NOTE | 2020-01-29 16:16 | MORECARE ---
CASE MANAGEMENT DISCHARGE SUMMARY PATIENT: WILLIAM BRYANT UNIT: [id number] ADM DATE: 01/15/20 AGE: 59 : 62 SEX: F ROOM/BED: D.2213 AUTHOR: SEAN PANIAGUA PHYSICIAN: REFERRING PHYSICIAN: JEREMI COOK DO DATE OF SERVICE: 01/29/20 Discharge Plan Patient Name: WILLIAM BRYANT Facility: [facility]:[place] : 1960 Planned Disposition: Home Anticipated Discharge Date: Discharge Date: 01/29/2020 Expected LOS: Initial Reviewer: [id number] Initial Review Date: 01/15/2020 Generated: 01/29/20 5:15 pm Comments DCP- Discharge Planning Updated by [email or web address]: Saida Lopez on 01/29/20 11:[address] Patient is discharging home today, 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 she has her BSC/shower chair at bedside. she denies any other needs at this time. She stated that she has [facility], but they do not take her insurance. She did not want/need any other dc needs. DCP- Discharge Planning Updated by [id number]: Breanne Armenta on 01/26/20 6:[address] CM contacted [facility] for BSC anticipated discharge for this weekend. DME delivered BSC to patient's room. CM will continue to follow and assist as needed with discharge planning / needs. DCP- Discharge Planning Updated by [id number]: Em Carbajal on 01/17/20 3:[address] Patient Name: WILLIAM BRYANT Admission Status: ER Accout number: [id number] Admission Date: 01-15-2020 : 1960 Admission Diagnosis:UNSPECIFIED ABDOMINAL PAIN Attending: JEREMI COOK Current LOS: 2 Anticipated DC Date: Planned Disposition: Home Primary Insurance: Discharge Planning Comments: CM met with patient at bedside after explaining CM role and obtaining verbal consent. CM discussed availability / needs of home health, REHAB and medical equipment. PATIENT STATES SHE NEEDS A BSC AND SHOWER CHAIR, L[facility]YA FOR [place]. PLANS TO DC TO HOME WHEN STABLE. DENIES NEED FOR HH, OR REHAB. CM TO FOLLOW AND ASSIST NEEDED, Neon Sign Mechanic: Em Carbajal DCPIA - Discharge Planning Initial Assessment Updated by [email or web address]: Em Carbajal on 01/17/20 4:23 pm * Is the patient Alert and Oriented? Yes * PCP [facility] * Pharmacy [facility] * Preadmission Environment Home Alone * ADLs Independent * Other Equipment WALKER * Community resources currently utilized None * Additional services required to return to the preadmission environment? No * Can the patient safely return to the preadmission environment? Yes * Has this patient been hospitalized within the prior 30 days at any hospital? No Coverage Notice Reviewer: [id number] - Em Carbajal Notice Issued Date-Time: 01/17/2020 16:24 Notice Type: Patient Choice Letter Notice Delivered To: Relationship to Patient: Tape Keller Operator Name: Delivery Method: - Milli Days: Prior Verbal Notification: Recipient Understood Notice: Recipient Signature: Med Rec Note Co-signed by Attending: Coverage Notice Comment: NIKITA COON FOR BSC AND SC Reviewer: [email or web address] Julianne Lopez Notice Issued Date-Time: 01/29/2020 12:15 Notice Type: IM Discharge Notice Notice Delivered To: Patient Relationship to Patient: Tape Keller Operator Name: Delivery Method: HAND - Hand Delivered Milli Days: Prior Verbal Notification: Recipient Understood Notice: Yes Recipient Signature: Yes Med Rec Note Co-signed by Attending: Coverage Notice Comment: imm served and given Last DP export: 01/29/20 11:28 a Patient Name: WILLIAM BRYANT Page [id number] at 1616 All edits/amendments must be made on the electronic document DICTATION DATE: 01/29/20 1616 MEAL GRINDER TENDER: CAMI 01/29/20 1616 RPT#: [id number] DC DATE:01/29/20 STATUS: DIS IN [facility] [address] [place] [address] END OF REPORT
== END 2020-01-29 14:36 | disposition home or self-care (01) | DRG 438 ==
LOC: D.ER 09:13 → D.MS 14:24 → D.CVICU 01-24 22:45 → D.MS 01-28 05:20
PROVIDERS: Emergency Medicine; Family Medicine Adult Medicine; Internal Medicine Gastroenterology; Internal Medicine Hematology & Oncology; Specialist; ADMIT Family Medicine; ATTEND Family Medicine
PROC: 0FBG3ZX Excision of Pancreas, Percutaneous Approach, Diagnostic (ICD-10-PCS; principal; 2020-01-24 08:52)
DX: D13.6 Benign neoplasm of pancreas (principal); K85.90 Acute pancreatitis without necrosis or infection, unspecified; E87.6 Hypokalemia; R74.0 Nonspecific elevation of levels of transaminase and lactic acid dehydrogenase [LDH]; R63.1 Polydipsia; G89.29 Other chronic pain; F41.8 Other specified anxiety disorders; Z86.73 Personal history of transient ischemic attack (TIA), and cerebral infarction without residual deficits